=== PATIENT | male | born 1940 | race Caucasian/White ===

== ENCOUNTER → 2016-11-01 | Outpatient (CLI) | payer MEDICARE, OTHER ==
[~2016-11-01] MED LIST: IOHEXOL 350 MG/ML 100ML IJ ONE; READI-CAT 2 (BARIUM SULF)(VANILLA SMOOTHIE) 450ML ONE
[2016-11-01 09:30] VITALS: BP 127/59
[2016-11-01 10:30] VITALS: BP 115/58
== END | disposition home or self-care (01) ==
LOC: Rad HDHVI 09:32
PROVIDERS: ATTEND Internal Medicine Cardiovascular Disease
DX: N28.1 Cyst of kidney, acquired (principal); I10 Essential (primary) hypertension; I71.4 Abdominal aortic aneurysm, without rupture; E11.9 Type 2 diabetes mellitus without complications; D64.9 Anemia, unspecified; I25.10 Atherosclerotic heart disease of native coronary artery without angina pectoris; M47.896 Other spondylosis, lumbar region; K76.89 Other specified diseases of liver
CPT/HCPCS: 74177; G0463; Q9967

== ENCOUNTER → 2017-05-08 | Outpatient (CLI) | payer MEDICARE, OTHER ==
[2017-05-08 12:23] LABS: Basophils # (auto) 0.1 uL; CONDITION Y; Eosinophils # (auto) 0.3 uL; Eosinophils % (auto) 4.5 % (0.0-7.0); Lymphocytes # (auto) 1.3 uL; Lymphocytes % (auto) 22.7 % (10.0-50.0); Mean Corpuscular Hemoglobin 31.7 pg (28.0-32.0); Mean Corpuscular Volume 93.3 fL (80.0-100.0); Mean Platelet Volume 9.6 fL (7.4-10.4); Monocytes # (auto) 0.4 uL; Monocytes % (auto) 6.8 % (0.0-12.0); Neutrophils # (auto) 3.8 uL; Platelet Count (auto) 226 10^3/uL (140-450); Red Cell Distribution Width 13.7 % (11.6-16.0); White Blood Cell 5.8 10^3/uL (4.4-10.8)
[2017-05-08 12:27] LABS: Urine Bilirubin Negative (Negative); Urine Blood Negative /uL (Negative); Urine Color Yellow (Yellow); Urine Ketone Negative (Negative); Urine Nitrite Negative (Negative); Urine Urobilinogen Normal (Negative); Urine pH 5.5 (5.0-8.0)
[2017-05-08 12:36] LABS: Urine Glucose 4+ mg/dL (Normal)
[2017-05-08 12:54] LABS: Albumin 4.4 g/dL (3.4-5.0); BUN/Creatinine Ratio 14.8; Bilirubin, Direct 0.2 mg/dL (0-0.2); Calcium 10.1 mg/dL (8.5-10.1); Potassium 4.5 mmol/L (3.5-5.1); Total Protein 7.8 g/dL (6.4-8.2)
== END | disposition home or self-care (01) ==
LOC: LAB 08:27
PROVIDERS: ATTEND Internal Medicine Cardiovascular Disease
DX: I10 Essential (primary) hypertension (principal); E78.00 Pure hypercholesterolemia, unspecified; K74.1 Hepatic sclerosis; E11.9 Type 2 diabetes mellitus without complications; R97.20 Elevated prostate specific antigen [PSA]; R53.81 Other malaise; E03.9 Hypothyroidism, unspecified; D64.9 Anemia, unspecified; E55.9 Vitamin D deficiency, unspecified; N39.0 Urinary tract infection, site not specified
CPT/HCPCS: 36415; 80048; 80061; 80076; 81003; 82306; 83036; 84153; 84403; 84443; 85025

== ENCOUNTER → 2017-05-17 | Outpatient (CLI) | payer MEDICARE, OTHER ==
[2017-05-17 11:15] VITALS: BP 107/64
[2017-05-17 11:20] VITALS: BP 107/64
== END | disposition home or self-care (01) ==
LOC: CHF HDHVI 10:42
PROVIDERS: ATTEND Internal Medicine Cardiovascular Disease
DX: E11.9 Type 2 diabetes mellitus without complications (principal)
CPT/HCPCS: 96372; G0463

== ENCOUNTER → 2017-06-29 | Outpatient (CLI) | payer MEDICARE, OTHER | END | disposition home or self-care (01) | LOC: LAB 09:31 | PROVIDERS: ATTEND Internal Medicine Cardiovascular Disease | DX: E11.9 Type 2 diabetes mellitus without complications (principal) | CPT/HCPCS: 36415; 83036 ==

== ENCOUNTER → 2017-07-26 | Outpatient (CLI) | payer MEDICARE, OTHER | END | disposition home or self-care (01) | LOC: Rad HDHVI 09:00 | PROVIDERS: ATTEND Internal Medicine Cardiovascular Disease | DX: I10 Essential (primary) hypertension (principal); E11.65 Type 2 diabetes mellitus with hyperglycemia | CPT/HCPCS: 93306; 93880 ==

== ENCOUNTER → 2017-07-28 | Outpatient (CLI) | payer MEDICARE, OTHER ==
[~2017-07-28] VITALS: Ht 182.9 cm; Wt 87.5 kg
== END | disposition home or self-care (01) ==
LOC: Rad HDHVI 09:54
PROVIDERS: ATTEND Internal Medicine Cardiovascular Disease
DX: I10 Essential (primary) hypertension (principal); E11.21 Type 2 diabetes mellitus with diabetic nephropathy; E11.65 Type 2 diabetes mellitus with hyperglycemia; E78.5 Hyperlipidemia, unspecified
CPT/HCPCS: 78452; 93017; 96374; A9500

== ENCOUNTER → 2017-12-14 | Outpatient (CLI) | payer MEDICARE, OTHER | END | disposition home or self-care (01) | LOC: Rad HDHVI 08:02 | PROVIDERS: ATTEND Internal Medicine Cardiovascular Disease | DX: E11.9 Type 2 diabetes mellitus without complications (principal); I10 Essential (primary) hypertension | CPT/HCPCS: 93306 ==

== ENCOUNTER → 2017-12-28 | Outpatient (CLI) | payer MEDICARE, OTHER ==
[2017-12-28 12:06] LABS: Hematocrit 50.3 % (41.0-53.0); Hemoglobin 16.5 g/dL (13.5-17.5); Mean Corpuscular Hemoglobin 28.7 pg (28.0-32.0); Mean Corpuscular Hgb Conc. 32.7 g/dL (32.0-36.0); Mean Corpuscular Volume 87.7 fL (80.0-100.0); Platelet Count (auto) 197 10^3/uL (140-450); Red Blood Cells 5.74 10^6/uL (4.5-5.90); Red Cell Distribution Width 14.4 % (11.8-14.3); White Blood Cell 5.4 10^3/uL (4.4-10.8)
[2017-12-28 12:12] LABS: Urine Blood Negative /uL (Negative)
[2017-12-28 12:25] LABS: Free T4 (Free Thyroxine) 1.57 ng/dL (0.89-1.76); Prostate Specific Antigen 2.27 ng/mL (0.0-4.0)
[2017-12-28 12:29] LABS: Band Neutrophils % (manual) 0; Basophils % (manual) 0 (0.0-2.0); Blast Cells 0; Metamyelocytes % 0; Myelocytes % 0; Promyelocytes % 0; Reactive Lymphocytes 0
[2017-12-28 13:28] LABS: BUN/Creatinine Ratio 19.7; Potassium 3.8 mmol/L (3.5-5.1)
[2017-12-28 13:29] LABS: Albumin 4.4 g/dL (3.4-5.0); Bilirubin, Total 1.2 mg/dL (0.2-1.0); Calcium 9.8 mg/dL (8.5-10.1)
[2017-12-28 15:00] LABS: Eosinophils % (manual) 6 (0-7); Lymphocytes % (manual) 19 (10.0-50.0); Monocytes % (manual) 10 (0-12)
== END | disposition home or self-care (01) ==
LOC: LAB 08:34
PROVIDERS: ATTEND Internal Medicine Cardiovascular Disease
DX: E78.00 Pure hypercholesterolemia, unspecified (principal); D64.9 Anemia, unspecified; I10 Essential (primary) hypertension; E11.9 Type 2 diabetes mellitus without complications; E55.9 Vitamin D deficiency, unspecified; E03.9 Hypothyroidism, unspecified; R53.81 Other malaise; R97.20 Elevated prostate specific antigen [PSA]; D51.9 Vitamin B12 deficiency anemia, unspecified; N39.0 Urinary tract infection, site not specified
CPT/HCPCS: 36415; 80053; 80061; 81003; 82306; 82607; 83036; 84153; 84403; 84439; 84443; 85007; 85027

== ENCOUNTER → 2018-04-16 | Outpatient (CLI) | payer MEDICARE, OTHER ==
[2018-04-16 12:12] LABS: Urine Blood Negative /uL (Negative); Urine Specific Gravity 1.028 (1.001-1.035)
[2018-04-16 12:25] LABS: Potassium 3.8 mmol/L (3.5-5.1)
[2018-04-16 12:50] LABS: BUN/Creatinine Ratio 17.7; Calcium 9.5 mg/dL (8.5-10.1)
== END | disposition home or self-care (01) ==
LOC: LAB 07:56
PROVIDERS: ATTEND Internal Medicine Cardiovascular Disease
DX: E11.9 Type 2 diabetes mellitus without complications (principal); I10 Essential (primary) hypertension; N39.0 Urinary tract infection, site not specified; E03.9 Hypothyroidism, unspecified; E78.5 Hyperlipidemia, unspecified
CPT/HCPCS: 36415; 80048; 81003; 83036

== ENCOUNTER → 2018-06-06 | Outpatient (CLI) | payer MEDICARE, OTHER ==
[2018-06-06 12:34] LABS: Albumin 4.1 g/dL (3.4-5.0); BUN/Creatinine Ratio 15.3; Bilirubin, Total 0.9 mg/dL (0.2-1.0); Potassium 3.9 mmol/L (3.5-5.1); Total Protein 7.4 g/dL (6.4-8.2)
== END | disposition home or self-care (01) ==
LOC: LAB 08:29
PROVIDERS: ATTEND Internal Medicine Cardiovascular Disease
DX: E11.21 Type 2 diabetes mellitus with diabetic nephropathy (principal); I10 Essential (primary) hypertension
CPT/HCPCS: 36415; 80053; 83036

== ENCOUNTER → 2018-07-02 | Outpatient (CLI) | payer MEDICARE, OTHER ==
[~2018-07-02] VITALS: Ht 182.9 cm; Wt 93.0 kg
== END | disposition home or self-care (01) ==
LOC: Rad HDHVI 14:32
PROVIDERS: ATTEND Internal Medicine Cardiovascular Disease
DX: E11.9 Type 2 diabetes mellitus without complications (principal)
CPT/HCPCS: 78452; 93017; 96374; A9500

== ENCOUNTER → 2018-07-24 | Outpatient (CLI) | payer MEDICARE, OTHER | END | disposition home or self-care (01) | LOC: Rad HDHVI 14:23 | PROVIDERS: ATTEND Internal Medicine Cardiovascular Disease | DX: I65.29 Occlusion and stenosis of unspecified carotid artery (principal); I10 Essential (primary) hypertension | CPT/HCPCS: 93880 ==

== ENCOUNTER → 2018-08-08 | Outpatient (CLI) | payer MEDICARE, OTHER | END | disposition home or self-care (01) | LOC: Rad HDHVI 08:56 | PROVIDERS: ATTEND Internal Medicine Cardiovascular Disease | DX: R51 Headache (principal) | CPT/HCPCS: 70450 ==

== ENCOUNTER → 2019-01-07 | Outpatient (CLI) | payer MEDICARE, OTHER ==
[2019-01-07 15:54] LABS: Urine Blood Negative /uL (Negative); Urine Specific Gravity 1.028 (1.001-1.035)
[2019-01-07 16:05] LABS: Albumin 4.2 g/dL (3.4-5.0); Potassium 4.3 mmol/L (3.5-5.1)
[2019-01-07 16:13] LABS: BUN/Creatinine Ratio 14.4; Bilirubin, Direct 0.2 mg/dL (0-0.2); Calcium 10.1 mg/dL (8.5-10.1); Total Protein 7.7 g/dL (6.4-8.2)
[2019-01-07 16:23] LABS: Free T4 (Free Thyroxine) 1.19 ng/dL (0.89-1.76)
[2019-01-07 16:24] LABS: Prostate Specific Antigen 2.5 ng/mL (0.0-4.0)
[2019-01-07 17:15] LABS: Basophils # (auto) 0.1 uL; Basophils % (auto) 1.8 % (0.0-2.0); Eosinophils # (auto) 0.1 uL; Eosinophils % (auto) 2.2 % (0.0-7.0); Lymphocytes # (auto) 1.5 uL; Lymphocytes % (auto) 26.4 % (10.0-50.0); Mean Corpuscular Hemoglobin 28.6 pg (28.0-32.0); Mean Corpuscular Hgb Conc. 32.7 g/dL (32.0-36.0); Mean Corpuscular Volume 87.7 fL (80.0-100.0); Monocytes # (auto) 0.4 uL; Monocytes % (auto) 7.6 % (0.0-12.0); Neutrophils # (auto) 3.4 uL; Nucleated Red Blood Cells % 0.2 %; Platelet Count (auto) 165 10^3/uL (140-450); Red Blood Cells 5.58 10^6/uL (4.5-5.90); Red Cell Distribution Width 16.2 % (11.8-14.3); White Blood Cell 5.5 10^3/uL (4.4-10.8)
== END | disposition home or self-care (01) ==
LOC: Rad HDHVI 11:49
PROVIDERS: ATTEND Internal Medicine Cardiovascular Disease
DX: J43.2 Centrilobular emphysema (principal); I70.0 Atherosclerosis of aorta; I25.10 Atherosclerotic heart disease of native coronary artery without angina pectoris; E03.9 Hypothyroidism, unspecified; E11.9 Type 2 diabetes mellitus without complications; E55.9 Vitamin D deficiency, unspecified; C61 Malignant neoplasm of prostate; E29.1 Testicular hypofunction; N39.0 Urinary tract infection, site not specified; Z87.891 Personal history of nicotine dependence
CPT/HCPCS: 36415; 71250; 80048; 80061; 80076; 81003; 82306; 83036; 84153; 84403; 84439; 84443; 85025; 87086

== ENCOUNTER → 2019-01-11 | Outpatient (CLI) | payer MEDICARE, OTHER | END | disposition home or self-care (01) | LOC: Rad HDHVI 13:58 | PROVIDERS: ATTEND Internal Medicine Cardiovascular Disease | DX: I06.9 Rheumatic aortic valve disease, unspecified (principal); J44.9 Chronic obstructive pulmonary disease, unspecified; I95.9 Hypotension, unspecified; G45.9 Transient cerebral ischemic attack, unspecified | CPT/HCPCS: 93306 ==

== ENCOUNTER → 2019-01-16 | Outpatient (CLI) | payer MEDICARE, OTHER ==
[~2019-01-16] MED LIST changes: +ASPI-231 PO; +B-CO1TAB8 PO; +BENA40TA7 PO; +CARV12.544 PO; +CHOL500021 OR; +GLIP-116 PO; +HYDR25TA4 PO; +INSU1.2I SC; +PAR20T PO; -READI-CAT 2 (BARIUM SULF)(VANILLA SMOOTHIE) 450ML ONE; +ROSU20TA14 PO
[2019-01-16 08:15] VITALS: BP 134/79
--- NOTE | 2019-01-16 09:00 | NUR ---
glucose checked AT 394. PT INITIALLY DECLINED ANY DIABETIC MANAGEMENT FOR 2 WEEKS. "I RAN OUT OF TOUJEO AND FARXIGA AND THEY WERE TOO EXPENSIVE". WHEN ASKED IF HE DISCUSSED DIABETIC MANAGEMENT WITH THE PHYSICIAN AT THE PRE-OP APPOINTMENT, HE DECLINED. "STATING HE DIDNT ASK ABOUT MY SUGAR". DISCUSSED IMPLICATIONS OF POOR DIABETIC MANAGEMENT AND IMPORTANCE OF GLUCOSE CONTROL ESPECIALLY WITH A LEFT HEART CATH TOMORROW AND IMPLICATIONS FOR INFECTION IF GLUCOSE IS NOT MANAGED. PULLED PAPER RECORD AND REVIEWED MEDICATIONS. FOUND THAT PT IS TAKING GLIPIZIDE. HE AGREED. STATED HE DID NOT KNOW WHAT MEDICATION WAS FOR. " I DONT KNOW WHAT ANY OF MY MEDICATIONS ARE FOR". DIABETIC TEACHING AND REVIEW FOR 10 MINUTES AT BEDSIDE. PT DOES HAVE GLUCOSE MONITOR AND STRIPS TO CHECK BLOOD SUGAR. HAS A FREESTYLE MONITOR THAT HE WILL IMPLEMENT ON DAY AFTER PROCEDURE. GIVEN SAMPLE OF TOUJEO WITH INSTRUCTIONS TO RETURN TO PREVIOUS DOSING (PT STATES 20 UNITS TWICE DAILY). AT END OF TEACHING SESSION PT RESPONDING WITH MORE INTEREST AND CONCERN REGARDING GLUCOSE MANAGEMENT. REPEAT BACK INSTRUCTIONS OBTAINED.
[2019-01-16 09:15] VITALS: BP 148/92
--- NOTE | 2019-01-16 09:15 | NUR ---
Pre-Op Discharge Summary: See e-MAR for any medications given for this visit. Pre-op orders received and carried out per MD of EKG, LABS and chest xrays. Patient given a copy of EKG with instructions to go to [facility] out patient for further follow up care.
[2019-01-16 12:13] LABS: Basophils # (auto) 0.1 uL; Basophils % (auto) 1.5 % (0.0-2.0); Eosinophils # (auto) 0.2 uL; Eosinophils % (auto) 2.9 % (0.0-7.0); Hematocrit 49.1 % (41.0-53.0); Hemoglobin 16.3 g/dL (13.5-17.5); Lymphocytes # (auto) 1.7 uL; Lymphocytes % (auto) 32.5 % (10.0-50.0); Mean Corpuscular Hgb Conc. 33.3 g/dL (32.0-36.0); Mean Corpuscular Volume 87.1 fL (80.0-100.0); Monocytes # (auto) 0.7 uL; Monocytes % (auto) 12.4 % (0.0-12.0); Neutrophils # (auto) 2.7 uL; Neutrophils % (auto) 50.7 % (37.0-80.0); Nucleated Red Blood Cells % 0.1 %; Platelet Count (auto) 177 10^3/uL (140-450); Red Blood Cells 5.63 10^6/uL (4.5-5.90); White Blood Cell 5.3 10^3/uL (4.4-10.8)
[2019-01-16 12:20] LABS: INR 0.96 (0.9-1.15); Partial Thromboplastin Time 26.2 sec (23.78-33.04); Prothrombin Time 10.3 sec (9.27-12.13)
[2019-01-16 12:27] LABS: BUN/Creatinine Ratio 17.1; Calcium 9.4 mg/dL (8.5-10.1); Potassium 3.5 mmol/L (3.5-5.1)
== END | disposition home or self-care (01) ==
LOC: Rad HDHVI 07:58
PROVIDERS: ATTEND Internal Medicine Cardiovascular Disease
DX: Z01.812 Encounter for preprocedural laboratory examination (principal); I11.0 Hypertensive heart disease with heart failure; I50.9 Heart failure, unspecified; I25.10 Atherosclerotic heart disease of native coronary artery without angina pectoris; E11.9 Type 2 diabetes mellitus without complications; G45.9 Transient cerebral ischemic attack, unspecified; R79.1 Abnormal coagulation profile; D64.9 Anemia, unspecified
CPT/HCPCS: 36415; 71046; 80048; 82962; 85025; 85610; 85730; 93005; G0463

== ENCOUNTER 2019-01-17 09:31 | Inpatient (IN) | payer MEDICARE, OTHER ==
[~2019-01-17] VITALS: Ht 182.9 cm; Wt 96.6 kg
[~2019-01-17 09:31] MED LIST changes: -IOHEXOL 350 MG/ML 100ML IJ ONE
[2019-01-17] MEDS ORDERED: fentaNYL CITRATE 100 MCG/2 ML VL ONE (13:06)
[2019-01-17] MEDS ORDERED: ANGIOMAX 250 MG VIAL IV ONE (13:06)
[2019-01-17] MEDS ORDERED: SODIUM CHL 0.9% 50 ML ONE (13:07)
[2019-01-17] MEDS ORDERED: MIDAZOLAM HCL 1MG/1ML-2 ML VIAL ONE (13:07)
[2019-01-17] MEDS ORDERED: LIDOCAINE 2%HCL (LOCAL ANESTH.) INJ 20ML MDV ONE (13:42)
[2019-01-17] MEDS ORDERED: IOHEXOL 350 MG/ML 100ML IJ ONE (13:43)
[2019-01-17] MEDS ORDERED: ATROPINE SULFATE 1 MG/1 ML VIAL ONE (14:28)
[2019-01-17] MEDS ORDERED: CLOPIDOGREL 300 MG TAB ONE (14:44)
[2019-01-17] MEDS ORDERED: NITROGLYCERIN 0.4MG/DOSE SPRAY 4.9GM ONE (14:52)
[2019-01-17] MEDS ORDERED: cloNIDine HCL 0.1 MG TAB ONE (14:54)
[2019-01-17] MEDS ORDERED: MORPHINE SULF INJ 2 MG/ML SYRINGE 1ML IV PRN (15:30)
[2019-01-17] MEDS ORDERED: NITROGLYCERIN 0.4 MG SL TAB SL PRN (15:30)
[2019-01-17 17:10] VITALS: BP 116/79
[2019-01-17 17:37] VITALS: BP 116/79
[2019-01-17 22:00] VITALS: BP 108/79
[2019-01-17] MEDS ORDERED: INSULIN GLARGINE 20 UNIT SC SCH (22:00)
[2019-01-17] MEDS: ASPirin-EC 81 mg tab PO SCH (22:05)
[2019-01-17] MEDS: CARVEDILOL 12.5 MG TAB PO SCH (22:07)
[2019-01-17] MEDS: INSULIN LANTUS (GLARGINE) 1 /0.01ml (100units/ml) SC SCH (22:14)
[2019-01-17] MEDS ORDERED: DEXTROSE (50%) 50ML SYRG IV PRN ×2 (22:45)
[2019-01-17] MEDS: ACCU-CHEK COMFORT CURVE STRIP VI SCH (23:00)
[2019-01-17] MEDS ORDERED: InsuLIN REG 1unit/0.01ml Soln (100units/ml) SC SCH (23:00)
[2019-01-18 05:22] VITALS: BP 124/69
[2019-01-18] MEDS ORDERED: InsuLIN REG 1unit/0.01ml Soln (100units/ml) SC SCH ×2 (07:00→22:00)
[2019-01-18] MEDS: InsuLIN REG 1unit/0.01ml Soln (100units/ml) SC SCH ×4 (07:00→17:00)
[2019-01-18] MEDS ORDERED: ACCU-CHEK COMFORT CURVE STRIP VI SCH (07:00)
[2019-01-18] MEDS: ACCU-CHEK COMFORT CURVE STRIP VI SCH ×3 (07:07→19:09)
[2019-01-18 07:09] LABS: Basophils # (auto) 0.1 uL; Basophils % (auto) 1.2 % (0.0-2.0); Eosinophils # (auto) 0.2 uL; Eosinophils % (auto) 2.8 % (0.0-7.0); Hematocrit 47.9 % (41.0-53.0); Hemoglobin 16.4 g/dL (13.5-17.5); Lymphocytes # (auto) 1.5 uL; Lymphocytes % (auto) 25.4 % (10.0-50.0); Mean Corpuscular Hemoglobin 29.5 pg (28.0-32.0); Mean Corpuscular Hgb Conc. 34.3 g/dL (32.0-36.0); Mean Corpuscular Volume 85.8 fL (80.0-100.0); Monocytes # (auto) 0.6 uL; Monocytes % (auto) 10.7 % (0.0-12.0); Neutrophils # (auto) 3.5 uL; Neutrophils % (auto) 59.9 % (37.0-80.0); Nucleated Red Blood Cells % 0.1 %; Platelet Count (auto) 175 10^3/uL (140-450); Red Blood Cells 5.58 10^6/uL (4.5-5.90); Red Cell Distribution Width 15.8 % (11.8-14.3); White Blood Cell 5.8 10^3/uL (4.4-10.8)
[2019-01-18 07:11] LABS: INR 0.94 (0.9-1.15); Prothrombin Time 10.1 sec (9.27-12.13)
[2019-01-18 07:13] LABS: Potassium 3.4 mmol/L (3.5-5.1)
[2019-01-18 07:31] LABS: Albumin 4.2 g/dL (3.4-5.0); BUN/Creatinine Ratio 20.9; Bilirubin, Total 1.2 mg/dL (0.2-1.0); Calcium 9.5 mg/dL (8.5-10.1); Total Protein 7.5 g/dL (6.4-8.2)
[2019-01-18 09:00] VITALS: BP 117/67
[2019-01-18] MEDS: ASPirin-EC 81 mg tab PO SCH (09:53)
[2019-01-18] MEDS: INSULIN LANTUS (GLARGINE) 1 /0.01ml (100units/ml) SC SCH (09:55)
[2019-01-18] MEDS ORDERED: B-COMPLEX W/ C & FOLIC ACID(NEPHROVITE TAB) PO SCH (10:00)
[2019-01-18] MEDS ORDERED: PATIENTS OWN MEDICATION (Glipizide 10 MG) PO SCH (10:00)
[2019-01-18] MEDS ORDERED: PATIENTS OWN MEDICATION (Hydrochlorothiazide 25 MG) PO SCH (10:00)
[2019-01-18] MEDS ORDERED: CHOLECALCIFEROL (VITD3) 1,000 UNIT TAB PO SCH (10:00)
[2019-01-18] MEDS ORDERED: CLOPIDOGREL BISULFATE 75 MG TAB PO SCH (10:00)
[2019-01-18] MEDS ORDERED: PARoxetine 20 MG TAB PO SCH (10:00)
[2019-01-18] MEDS ORDERED: PATIENTS OWN MEDICATION (Rosuvastatin Calcium (Crestor) 1 TAB) PO SCH (10:00)
[2019-01-18] MEDS ORDERED: BIOTIN PO SCH (10:00)
[2019-01-18] MEDS ORDERED: PATIENTS OWN MEDICATION (Benazepril Hcl 40 MG) PO SCH (10:00)
[2019-01-18] MEDS ORDERED: BENAZEPRIL HCL 10 MG TAB PO SCH (10:00)
[2019-01-18] MEDS: CARVEDILOL 12.5 MG TAB PO SCH (10:00)
[2019-01-18] MEDS ORDERED: PATIENTS OWN MEDICATION (Cholecalciferol (Vitamin D) 5,000 UNIT) OR SCH (10:00)
[2019-01-18] MEDS ORDERED: B COMPLEX PO SCH (10:00)
[2019-01-18] MEDS ORDERED: HCTZ 25 MG TAB PO SCH (10:00)
[2019-01-18] MEDS ORDERED: glipiZIDE 5 MG TAB PO SCH (10:00)
[2019-01-18] MEDS ORDERED: FOLIC ACI PO SCH (10:00)
[2019-01-18 17:00] VITALS: BP 124/65
[2019-01-18 18:01] VITALS: BP 124/65
== END 2019-01-18 19:57 | disposition home or self-care (01) | DRG 246 ==
LOC: CATH 09:31 → TELE-EAST 16:37
PROVIDERS: ADMIT Internal Medicine Cardiovascular Disease; ATTEND Internal Medicine Cardiovascular Disease
PROC: B2111ZZ Fluoroscopy of Multiple Coronary Arteries using Low Osmolar Contrast (ICD-10-PCS; principal; 2019-01-17)
PROC: 027034Z Dilation of Coronary Artery, One Artery with Drug-eluting Intraluminal Device, Percutaneous Approach (ICD-10-PCS; 2019-01-17)
PROC: 4A023N8 Measurement of Cardiac Sampling and Pressure, Bilateral, Percutaneous Approach (ICD-10-PCS; 2019-01-17)
PROC: B2161ZZ Fluoroscopy of Right and Left Heart using Low Osmolar Contrast (ICD-10-PCS; 2019-01-17)
PROC: B41F1ZZ Fluoroscopy of Right Lower Extremity Arteries using Low Osmolar Contrast (ICD-10-PCS; 2019-01-17)
DX: I25.10 Atherosclerotic heart disease of native coronary artery without angina pectoris (principal); I50.31 Acute diastolic (congestive) heart failure; I11.0 Hypertensive heart disease with heart failure; N19 Unspecified kidney failure; J44.9 Chronic obstructive pulmonary disease, unspecified; E78.5 Hyperlipidemia, unspecified; I25.2 Old myocardial infarction; Z98.61 Coronary angioplasty status; Z82.49 Family history of ischemic heart disease and other diseases of the circulatory system
CPT/HCPCS: 36415; 71046; 80048; 80053; 82962; 84484; 85025; 85610; 85730; 92928; 93005; 93460; 99152; A6257; C1874; G0378; G0463; J0461; J1815; J2250

== ENCOUNTER → 2019-02-12 | Outpatient (CLI) | payer MEDICARE, OTHER ==
[~2019-02-12] MED LIST changes: +CLOP75TA41 PO
[2019-02-12 09:00] VITALS: BP 154/78
[2019-02-12 09:27] VITALS: BP 153/80
--- NOTE | 2019-02-12 09:27 | NUR ---
PRE-OP FOR [facility] FOR 02/14/19 Discharge Instructions See e-MAR for any mediations given with this visit. Patient education given on disease process. Patient verbalized understanding. Previous labs reviewed. Patient discharged in stable condition with after care instructions and follow up appointment.
[2019-02-12 11:59] LABS: Basophils # (auto) 0.1 uL; Basophils % (auto) 1.5 % (0.0-2.0); Eosinophils # (auto) 0.2 uL; Eosinophils % (auto) 3.9 % (0.0-7.0); Hematocrit 48.3 % (41.0-53.0); Hemoglobin 16.1 g/dL (13.5-17.5); Lymphocytes # (auto) 1.4 uL; Mean Corpuscular Hemoglobin 29.4 pg (28.0-32.0); Mean Corpuscular Hgb Conc. 33.3 g/dL (32.0-36.0); Mean Corpuscular Volume 88.3 fL (80.0-100.0); Monocytes # (auto) 0.5 uL; Monocytes % (auto) 8.5 % (0.0-12.0); Neutrophils # (auto) 3.5 uL; Neutrophils % (auto) 61.1 % (37.0-80.0); Nucleated Red Blood Cells % 0.1 %; Platelet Count (auto) 161 10^3/uL (140-450); Red Blood Cells 5.47 10^6/uL (4.5-5.90); Red Cell Distribution Width 15.3 % (11.8-14.3); White Blood Cell 5.7 10^3/uL (4.4-10.8)
[2019-02-12 12:19] LABS: Calcium 9.5 mg/dL (8.5-10.1); Potassium 3.8 mmol/L (3.5-5.1)
[2019-02-12 12:22] LABS: BUN/Creatinine Ratio 14.3
[2019-02-12 12:29] LABS: INR 2.03 (0.9-1.15); Partial Thromboplastin Time 22.2 sec (23.78-33.04); Prothrombin Time 19.8 sec (9.27-12.13)
== END | disposition home or self-care (01) ==
LOC: Rad HDHVI 08:54
PROVIDERS: ATTEND Internal Medicine Cardiovascular Disease
DX: Z01.812 Encounter for preprocedural laboratory examination (principal); I13.0 Hypertensive heart and chronic kidney disease with heart failure and stage 1 through stage 4 chronic kidney disease, or unspecified chronic kidney disease; I50.9 Heart failure, unspecified; N18.3 Chronic kidney disease, stage 3 (moderate); D64.9 Anemia, unspecified; R79.1 Abnormal coagulation profile
CPT/HCPCS: 36415; 80048; 85025; 85610; 85730; 93005; G0463

== ENCOUNTER 2019-02-14 08:03 | Inpatient (IN) | payer MEDICARE, OTHER | END 2019-02-15 12:25 | disposition home or self-care (01) | LOC: CATH 08:03 → TELE-CENTR 16:06 | PROC: 027034Z Dilation of Coronary Artery, One Artery with Drug-eluting Intraluminal Device, Percutaneous Approach (ICD-10-PCS; principal; ~2019-02-14) | PROC: B2111ZZ Fluoroscopy of Multiple Coronary Arteries using Low Osmolar Contrast (ICD-10-PCS; ~2019-02-14) | PROC: B2141ZZ Fluoroscopy of Right Heart using Low Osmolar Contrast (ICD-10-PCS; ~2019-02-14) | DX: I25.10 Atherosclerotic heart disease of native coronary artery without angina pectoris (principal); I10 Essential (primary) hypertension; E78.5 Hyperlipidemia, unspecified; I25.5 Ischemic cardiomyopathy ==

== ENCOUNTER → 2019-04-29 | Outpatient (CLI) | payer MEDICARE, OTHER ==
[~2019-04-29] VITALS: Ht 182.9 cm; Wt 93.0 kg
[~2019-04-29] MED LIST changes: -B-CO1TAB8 PO; -CHOL500021 OR; -GLIP-116 PO; +GLIP10TA9 PO
== END | disposition home or self-care (01) ==
LOC: Rad HDHVI 07:55
PROVIDERS: ATTEND Internal Medicine Cardiovascular Disease
DX: I08.3 Combined rheumatic disorders of mitral, aortic and tricuspid valves (principal); E78.00 Pure hypercholesterolemia, unspecified; I11.0 Hypertensive heart disease with heart failure; I50.33 Acute on chronic diastolic (congestive) heart failure; I27.20 Pulmonary hypertension, unspecified; J44.9 Chronic obstructive pulmonary disease, unspecified; I20.9 Angina pectoris, unspecified
CPT/HCPCS: 78452; 93017; 93306; 96374; A9500

== ENCOUNTER → 2019-05-13 | Outpatient (CLI) | payer MEDICARE, OTHER ==
[2019-05-13 15:59] LABS: Basophils # (auto) 0.1 uL; Basophils % (auto) 2.1 % (0.0-2.0); Eosinophils # (auto) 0.1 uL; Eosinophils % (auto) 2.9 % (0.0-7.0); Hematocrit 45.1 % (41.0-53.0); Lymphocytes # (auto) 1.3 uL; Lymphocytes % (auto) 27.3 % (10.0-50.0); Mean Corpuscular Hemoglobin 30.6 pg (28.0-32.0); Mean Corpuscular Hgb Conc. 33.3 g/dL (32.0-36.0); Mean Corpuscular Volume 91.7 fL (80.0-100.0); Monocytes # (auto) 0.5 uL; Monocytes % (auto) 10.1 % (0.0-12.0); Neutrophils # (auto) 2.7 uL; Neutrophils % (auto) 57.6 % (37.0-80.0); Platelet Count (auto) 156 10^3/uL (140-450); Red Blood Cells 4.92 10^6/uL (4.5-5.90); Red Cell Distribution Width 14.5 % (11.8-14.3); White Blood Cell 4.7 10^3/uL (4.4-10.8)
[2019-05-13 16:04] LABS: Alanine Aminotransferase 43 U/L (16-61); Albumin 3.9 g/dL (3.4-5.0); Anion Gap 9 (5-15); Aspartate Aminotransferase 21 U/L (15-37); Blood Urea Nitrogen 22 mg/dL (7-18); Calcium 9.2 mg/dL (8.5-10.1); Carbon Dioxide 25 mmol/L (21-32); Chloride 100 mmol/L (98-107); GFR African American 60 mL/min; GFR Non-African American 49 mL/min; Potassium 4.1 mmol/L (3.5-5.1); Sodium 134 mmol/L (136-145)
[2019-05-13 16:10] LABS: Alkaline Phosphatase 90 U/L (45-117); Bilirubin, Direct 0.2 mg/dL (0-0.2); Bilirubin, Total 0.8 mg/dL (0.2-1.0); Cholesterol 166 mg/dL (< 200); HDL Cholesterol 39 mg/dL (40-59); Total Protein 7.2 g/dL (6.4-8.2); Triglycerides 483 mg/dL (< 150)
[2019-05-13 16:15] LABS: Glucose 430 mg/dL (74-106)
== END | disposition home or self-care (01) ==
LOC: LAB 10:46
PROVIDERS: ATTEND Internal Medicine Cardiovascular Disease
DX: E11.319 Type 2 diabetes mellitus with unspecified diabetic retinopathy without macular edema (principal); E29.1 Testicular hypofunction; K90.9 Intestinal malabsorption, unspecified; C61 Malignant neoplasm of prostate; K74.1 Hepatic sclerosis; E03.9 Hypothyroidism, unspecified
CPT/HCPCS: 36415; 80048; 80061; 80076; 82306; 83036; 84153; 84403; 84443; 85025

== ENCOUNTER 2019-08-13 11:48 | Inpatient (IN) | payer MEDICARE, OTHER ==
[~2019-08-13] VITALS: Ht 182.9 cm; Wt 90.7 kg
[~2019-08-13 11:48] MED LIST changes: +EMPA1TAB3 PO; -INSU1.2I SC
[2019-08-13] MEDS ORDERED: LIDOCAINE 2%HCL (LOCAL ANESTH.) INJ 20ML MDV ONE (12:04)
[2019-08-13] MEDS ORDERED: MIDAZOLAM HCL 1MG/1ML-2 ML VIAL ONE (12:04)
[2019-08-13] MEDS ORDERED: fentaNYL CITRATE 100 MCG/2 ML VL ONE (12:04)
[2019-08-13] MEDS ORDERED: IOHEXOL 350 MG/ML 100ML IJ ONE (12:04)
[2019-08-13] MEDS ORDERED: ANGIOMAX 250 MG VIAL IV ONE (12:05)
[2019-08-13] MEDS ORDERED: SODIUM CHL 0.9% 50 ML ONE (12:05)
[2019-08-13] MEDS ORDERED: ONDANSETRON HCL 4 MG/2 ML VIAL IV PRN (13:45)
[2019-08-13] MEDS ORDERED: NITROGLYCERIN 0.4 MG SL TAB SL PRN (13:45)
[2019-08-13] MEDS ORDERED: MORPHINE SULF INJ 2 MG/ML SYRINGE 1ML IV PRN (13:45)
[2019-08-13] MEDS ORDERED: HYDROcodone-ACET 5/325MG TAB PO PRN (13:45)
[2019-08-13] MEDS ORDERED: DEXTROSE (50%) 50ML SYRG IV PRN (13:45)
[2019-08-13 14:41] VITALS: BP 133/58
[2019-08-13 16:46] VITALS: BP 122/66
[2019-08-13] MEDS: ACETAMINOPHEN 500 MG TAB PO PRN (17:29)
--- NOTE | 2019-08-13 17:29 | NUR ---
Tylenol PO given for headache.
[2019-08-13] MEDS: ACCU-CHEK COMFORT CURVE STRIP VI SCH ×2 (17:33→21:16)
[2019-08-13] MEDS: InsuLIN REG 1unit/0.01ml Soln (100units/ml) SC SCH ×2 (17:34→21:19)
[2019-08-13] MEDS: CARVEDILOL 12.5 MG TAB PO SCH (17:58)
[2019-08-13] MEDS: ASPirin-EC 81 mg tab PO SCH (21:16)
[2019-08-14 05:33] VITALS: BP 137/99
[2019-08-14] MEDS: ACCU-CHEK COMFORT CURVE STRIP VI SCH ×2 (06:09→11:40)
[2019-08-14] MEDS: InsuLIN REG 1unit/0.01ml Soln (100units/ml) SC SCH ×2 (06:09→11:41)
[2019-08-14 09:00] VITALS: BP 138/65
[2019-08-14] MEDS: ASPirin-EC 81 mg tab PO SCH (09:37)
[2019-08-14] MEDS: CARVEDILOL 12.5 MG TAB PO SCH (09:52)
[2019-08-14] MEDS ORDERED: PARoxetine 20 MG TAB PO SCH (10:00)
[2019-08-14] MEDS ORDERED: CLOPIDOGREL BISULFATE 75 MG TAB PO SCH (10:00)
[2019-08-14] MEDS ORDERED: EMPAGLIFLOZIN 25 MG PO SCH (10:00)
[2019-08-14] MEDS ORDERED: ATORVASTATIN 20 MG TAB PO SCH (10:00)
[2019-08-14] MEDS ORDERED: BENAZEPRIL HCL 10 MG TAB PO SCH (10:00)
[2019-08-14] MEDS ORDERED: glipiZIDE 5 MG TAB PO SCH (10:00)
[2019-08-14] MEDS ORDERED: HCTZ 25 MG TAB PO SCH (10:00)
[2019-08-14] MEDS: ACETAMINOPHEN 500 MG TAB PO PRN (11:36)
[2019-08-14 13:00] VITALS: BP 127/57
--- NOTE | 2019-08-14 14:00 | NUR ---
Dr. Murguia gave a telephone order to discharge the patient today, on Brilinta 90 mg BID #30 with 6 refills and call in to patient's pharmacy. Addendum: 08/14/19 at 1419 by Nehal Rios RN Brilinta for 30 days
--- NOTE | 2019-08-14 14:03 | NUR ---
Patient said he gets his medications at [facility].
--- NOTE | 2019-08-14 14:11 | NUR ---
Called [facility] [address] ([phone]). Spoke with Pharmacist Christofer that Dr. Murguia prescribed Brilinta 90 mg PO BID for 30 days with 6 refills. 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 Will inform the patient.
[2019-08-14 14:56] VITALS: BP 127/75
--- NOTE | 2019-08-14 15:38 | NUR ---
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
--- NOTE | 2019-08-14 15:41 | NUR ---
Patient called his using the bedside phone to call his to pick him up.
--- NOTE | 2019-08-14 16:00 | NUR ---
Discharge instructions given as ordered. Encourage to follow up with PMD as instructed. All questions and concerns addressed. Patient verbalized understanding. Medication reconciliation form completed and copy given to patient. IV removed with catheter intact, pressure dressing applied. Telemetry unit returned to ICU. Patient taken to [facility] via wheelchair with all personal belongings, accompanied by staff. Patient waiting at the [facility] for his to arrive, patient stated his will arrive at 4:00 pm to pick him up. No distress noted at time of departure.
== END 2019-08-14 16:00 | disposition home or self-care (01) | DRG 247 ==
LOC: CATH 11:48 → TELE-WESTW 14:25
PROVIDERS: ADMIT Internal Medicine Cardiovascular Disease; ATTEND Internal Medicine Cardiovascular Disease
PROC: 4A023N7 Measurement of Cardiac Sampling and Pressure, Left Heart, Percutaneous Approach (ICD-10-PCS; principal; 2019-08-13)
PROC: 027136Z Dilation of Coronary Artery, Two Arteries with Three Drug-eluting Intraluminal Devices, Percutaneous Approach (ICD-10-PCS; 2019-08-13)
PROC: B2111ZZ Fluoroscopy of Multiple Coronary Arteries using Low Osmolar Contrast (ICD-10-PCS; 2019-08-13)
PROC: 4A033BC Measurement of Arterial Pressure, Coronary, Percutaneous Approach (ICD-10-PCS; 2019-08-13)
DX: I25.110 Atherosclerotic heart disease of native coronary artery with unstable angina pectoris (principal); E78.5 Hyperlipidemia, unspecified; I10 Essential (primary) hypertension; I11.0 Hypertensive heart disease with heart failure; E11.9 Type 2 diabetes mellitus without complications; I50.9 Heart failure, unspecified; I25.2 Old myocardial infarction
CPT/HCPCS: 36415; 71046; 80048; 82962; 85025; 85610; 85730; 92928; 93005; 93458; 93571; G0378; G0463; J1815; J2250

== ENCOUNTER → 2019-09-30 | Outpatient (CLI) | payer MEDICARE, OTHER | END | disposition home or self-care (01) | LOC: Rad HDHVI 10:48 | PROVIDERS: ATTEND Internal Medicine Cardiovascular Disease | DX: I08.1 Rheumatic disorders of both mitral and tricuspid valves (principal); I20.0 Unstable angina; I50.33 Acute on chronic diastolic (congestive) heart failure | CPT/HCPCS: 93306 ==

== ENCOUNTER → 2019-10-02 | Outpatient (CLI) | payer MEDICARE, OTHER ==
[~2019-10-02] VITALS: Ht 182.9 cm; Wt 88.5 kg
== END | disposition home or self-care (01) ==
LOC: Rad HDHVI 09:32
PROVIDERS: ATTEND Internal Medicine Cardiovascular Disease
DX: I20.0 Unstable angina (principal); I10 Essential (primary) hypertension; E11.65 Type 2 diabetes mellitus with hyperglycemia; E78.00 Pure hypercholesterolemia, unspecified; E78.5 Hyperlipidemia, unspecified; I25.2 Old myocardial infarction; R07.9 Chest pain, unspecified; Z23 Encounter for immunization; Z95.820 Peripheral vascular angioplasty status with implants and grafts
CPT/HCPCS: 78452; 93017; 96374; A9500

== ENCOUNTER → 2019-10-25 | Outpatient (CLI) | payer MEDICARE, OTHER ==
[~2019-10-25] MED LIST changes: +READI-CAT 2 (BARIUM SULF)(VANILLA SMOOTHIE) 450ML ONE
== END | disposition home or self-care (01) ==
LOC: Rad HDHVI 11:42
PROVIDERS: ATTEND Internal Medicine Cardiovascular Disease
DX: I70.0 Atherosclerosis of aorta (principal); I71.4 Abdominal aortic aneurysm, without rupture; K40.20 Bilateral inguinal hernia, without obstruction or gangrene, not specified as recurrent; R19.7 Diarrhea, unspecified
CPT/HCPCS: 74176

== ENCOUNTER → 2020-02-28 | Outpatient (CLI) | payer MEDICARE, OTHER ==
[~2020-02-28] MED LIST changes: -READI-CAT 2 (BARIUM SULF)(VANILLA SMOOTHIE) 450ML ONE
[2020-02-28 15:56] LABS: Potassium 4.2 mmol/L (3.5-5.1)
[2020-02-28 15:57] LABS: BUN/Creatinine Ratio 14.2; Calcium 9.6 mg/dL (8.5-10.1)
== END | disposition home or self-care (01) ==
LOC: LAB 11:39
PROVIDERS: ATTEND Internal Medicine Cardiovascular Disease
DX: I10 Essential (primary) hypertension (principal)
CPT/HCPCS: 36415; 80048

== ENCOUNTER → 2020-03-02 | Outpatient (CLI) | payer MEDICARE, OTHER | END | disposition home or self-care (01) | LOC: Rad HDHVI 14:08 | PROVIDERS: ATTEND Internal Medicine Cardiovascular Disease | DX: I11.0 Hypertensive heart disease with heart failure (principal); I50.23 Acute on chronic systolic (congestive) heart failure; I20.0 Unstable angina | CPT/HCPCS: 93306 ==

== ENCOUNTER → 2020-03-06 | Outpatient (CLI) | payer MEDICARE, OTHER ==
[~2020-03-06] VITALS: Ht 182.9 cm; Wt 86.2 kg
[~2020-03-06] MED LIST changes: +ADENOSINE 72 MG in GIVE UN-DILUTED 0 ML IV ONE; +ADENOSINE 90 MG/30 ML INJ IV ONE
== END | disposition home or self-care (01) ==
LOC: Rad HDHVI 08:05
PROVIDERS: ATTEND Internal Medicine Cardiovascular Disease
DX: R07.9 Chest pain, unspecified (principal); I25.2 Old myocardial infarction; I25.10 Atherosclerotic heart disease of native coronary artery without angina pectoris; I10 Essential (primary) hypertension; E78.00 Pure hypercholesterolemia, unspecified; E11.9 Type 2 diabetes mellitus without complications; Z82.49 Family history of ischemic heart disease and other diseases of the circulatory system
CPT/HCPCS: 78452; 93005; 96374; 96375; A9500; J0153

== ENCOUNTER → 2020-03-20 | Outpatient (CLI) | payer MEDICARE, OTHER ==
[~2020-03-20] MED LIST changes: -ADENOSINE 72 MG in GIVE UN-DILUTED 0 ML IV ONE; -ADENOSINE 90 MG/30 ML INJ IV ONE
[2020-03-20 12:15] LABS: Basophils # (auto) 0.1 10 ^3/uL (0-0.2); Basophils % (auto) 2.1 % (0.0-2.0); Eosinophils # (auto) 0.1 10 ^3/uL (0-0.8); Eosinophils % (auto) 2.7 % (0.0-7.0); Hematocrit 49.6 % (41.0-53.0); Hemoglobin 16.6 g/dL (13.5-17.5); Lymphocytes # (auto) 1.1 10 ^3/uL (0.4-5.4); Mean Corpuscular Hemoglobin 30.7 pg (28.0-32.0); Mean Corpuscular Hgb Conc. 33.5 g/dL (32.0-36.0); Mean Corpuscular Volume 91.6 fL (80.0-100.0); Monocytes # (auto) 0.4 10 ^3/uL (0-1.3); Monocytes % (auto) 9.1 % (0.0-12.0); Neutrophils # (auto) 3.1 10 ^3/uL (1.6-8.6); Neutrophils % (auto) 64.1 % (37.0-80.0); Nucleated Red Blood Cells % 0.4 %; Platelet Count (auto) 227 10^3/uL (140-450); Red Blood Cells 5.42 10^6/uL (4.5-5.90); Red Cell Distribution Width 13.9 % (11.8-14.3); White Blood Cell 4.9 10^3/uL (4.4-10.8)
== END | disposition home or self-care (01) ==
LOC: LAB 09:16
PROVIDERS: ATTEND Internal Medicine Cardiovascular Disease
DX: D64.9 Anemia, unspecified (principal); Z79.899 Other long term (current) drug therapy
CPT/HCPCS: 36415; 83036; 85025

== ENCOUNTER → 2020-05-06 | Outpatient (CLI) | payer MEDICARE, OTHER | END | disposition home or self-care (01) | LOC: LAB 10:26 | PROVIDERS: ATTEND Internal Medicine Cardiovascular Disease | DX: E11.9 Type 2 diabetes mellitus without complications (principal) | CPT/HCPCS: 36415; 83036 ==

== ENCOUNTER 2020-06-24 16:32 | Inpatient (IN) | payer MEDICARE, OTHER ==
[~2020-06-24] VITALS: Ht 182.9 cm; Wt 97.0 kg
[2020-06-24] MEDS ORDERED: DEXTROSE (50%) 50ML SYRG IV PRN (17:15)
[2020-06-24] MEDS ORDERED: MORPHINE SULF INJ 2 MG/ML SYRINGE 1ML IV PRN (17:15)
[2020-06-24] MEDS ORDERED: NITROGLYCERIN 0.4 MG SL TAB SL PRN (17:15)
[2020-06-24 17:27] VITALS: BP 135/70
[2020-06-24 22:00] VITALS: BP 149/75
[2020-06-24] MEDS: InsuLIN REG 1unit/0.01ml Soln (100units/ml) SC SCH (22:34)
[2020-06-24] MEDS: ACCU-CHEK COMFORT CURVE STRIP VI SCH (22:34)
[2020-06-25] VITALS (7 sets, daily range): BP systolic 136–190; BP diastolic 69–101
[2020-06-25] MEDS: glipiZIDE 5 MG TAB PO SCH (06:13)
[2020-06-25] MEDS: InsuLIN REG 1unit/0.01ml Soln (100units/ml) SC SCH ×4 (06:13→22:00)
[2020-06-25] MEDS: ACCU-CHEK COMFORT CURVE STRIP VI SCH ×4 (06:13→22:11)
[2020-06-25 07:08] LABS: Basophils # (auto) 0.1 10 ^3/uL (0-0.2); Basophils % (auto) 2.5 % (0.0-2.0); Eosinophils # (auto) 0.2 10 ^3/uL (0-0.8); Eosinophils % (auto) 4.5 % (0.0-7.0); Hematocrit 44.5 % (41.0-53.0); Hemoglobin 14.8 g/dL (13.5-17.5); Lymphocytes # (auto) 1.1 10 ^3/uL (0.4-5.4); Lymphocytes % (auto) 22.4 % (10.0-50.0); Mean Corpuscular Hemoglobin 29.5 pg (28.0-32.0); Mean Corpuscular Hgb Conc. 33.3 g/dL (32.0-36.0); Mean Corpuscular Volume 88.6 fL (80.0-100.0); Monocytes # (auto) 0.6 10 ^3/uL (0-1.3); Monocytes % (auto) 11.5 % (0.0-12.0); Neutrophils % (auto) 59.1 % (37.0-80.0); Platelet Count (auto) 200 10^3/uL (140-450); Red Blood Cells 5.02 10^6/uL (4.5-5.90); Red Cell Distribution Width 13.9 % (11.8-14.3)
[2020-06-25 07:17] LABS: Albumin 3.6 g/dL (3.4-5.0); BUN/Creatinine Ratio 15.5; Calcium 8.9 mg/dL (8.5-10.1)
[2020-06-25 07:20] LABS: Total Protein 6.7 g/dL (6.4-8.2)
[2020-06-25 07:23] LABS: INR 0.99 (0.9-1.15); Partial Thromboplastin Time 24.9 sec (23.0-31.2)
[2020-06-25] MEDS: BENAZEPRIL HCL 10 MG TAB PO SCH (10:28)
[2020-06-25] MEDS: CLOPIDOGREL BISULFATE 75 MG TAB PO SCH (10:28)
[2020-06-25] MEDS ORDERED: IOHEXOL 350 MG/ML 100ML IJ ONE ×3 (14:32→14:57)
[2020-06-25] MEDS ORDERED: LIDOCAINE 2%HCL (LOCAL ANESTH.) INJ 20ML MDV ONE (14:32)
[2020-06-25] MEDS ORDERED: fentaNYL CITRATE 100 MCG/2 ML VL ONE (14:33)
[2020-06-25] MEDS ORDERED: ANGIOMAX 250 MG VIAL IV ONE (14:33)
[2020-06-25] MEDS ORDERED: SODIUM CHL 0.9% 50 ML ONE (14:34)
[2020-06-25] MEDS ORDERED: MIDAZOLAM HCL 1MG/1ML-2 ML VIAL ONE (14:34)
[2020-06-25] MEDS ORDERED: NITROGLYCERIN 0.4MG/DOSE SPRAY 4.9GM ONE (14:51)
[2020-06-25] MEDS ORDERED: ASPirin 81 mg TAB ONE (15:30)
[2020-06-26] VITALS (7 sets, daily range): BP systolic 124–175; BP diastolic 70–87
[2020-06-26] MEDS: InsuLIN REG 1unit/0.01ml Soln (100units/ml) SC SCH ×2 (05:31→11:17)
[2020-06-26] MEDS: glipiZIDE 5 MG TAB PO SCH (05:43)
[2020-06-26] MEDS: ACCU-CHEK COMFORT CURVE STRIP VI SCH ×2 (07:06→11:16)
[2020-06-26] MEDS: BENAZEPRIL HCL 10 MG TAB PO SCH (10:00)
[2020-06-26] MEDS ORDERED: HYDROcodone-ACET 10/325MG TAB PO PRN (10:00)
[2020-06-26] MEDS: CLOPIDOGREL BISULFATE 75 MG TAB PO SCH (10:00)
== END 2020-06-26 16:45 | disposition home or self-care (01) | DRG 247 ==
LOC: TELE-WESTW 16:32
PROVIDERS: ADMIT Hospitalist; ATTEND Internal Medicine Cardiovascular Disease
PROC: 4A023N7 Measurement of Cardiac Sampling and Pressure, Left Heart, Percutaneous Approach (ICD-10-PCS; principal; 2020-06-25)
PROC: 027034Z Dilation of Coronary Artery, One Artery with Drug-eluting Intraluminal Device, Percutaneous Approach (ICD-10-PCS; 2020-06-25)
PROC: B2111ZZ Fluoroscopy of Multiple Coronary Arteries using Low Osmolar Contrast (ICD-10-PCS; 2020-06-25)
PROC: B2151ZZ Fluoroscopy of Left Heart using Low Osmolar Contrast (ICD-10-PCS; 2020-06-25)
DX: I21.4 Non-ST elevation (NSTEMI) myocardial infarction (principal); I25.110 Atherosclerotic heart disease of native coronary artery with unstable angina pectoris; E11.40 Type 2 diabetes mellitus with diabetic neuropathy, unspecified; E11.21 Type 2 diabetes mellitus with diabetic nephropathy; I10 Essential (primary) hypertension; E78.5 Hyperlipidemia, unspecified; J44.9 Chronic obstructive pulmonary disease, unspecified; Z82.49 Family history of ischemic heart disease and other diseases of the circulatory system
CPT/HCPCS: 36415; 71045; 80053; 82962; 85025; 85610; 85730; 86850; 86900; 86901; 92928; 93458; 99152; 99153; C1874; C1887; G0378; J1815; J2250

== ENCOUNTER → 2020-11-05 | Outpatient (CLI) | payer MEDICARE, OTHER ==
[~2020-11-05] MED LIST changes: -ROSU20TA14 PO
== END | disposition home or self-care (01) ==
LOC: LAB 13:23
PROVIDERS: ATTEND Internal Medicine Cardiovascular Disease
DX: R94.4 Abnormal results of kidney function studies (principal)
CPT/HCPCS: 36415; 82565; 84520

== ENCOUNTER → 2020-11-06 | Outpatient (CLI) | payer MEDICARE, OTHER ==
[~2020-11-06] MED LIST changes: +IOHEXOL 350 MG/ML 100ML IJ ONE; +READI-CAT 2 (BARIUM SULF)(VANILLA SMOOTHIE) 450ML ONE
[2020-11-06 09:30] VITALS: BP 125/76
[2020-11-06 10:18] VITALS: BP 141/84
== END | disposition home or self-care (01) ==
LOC: Rad HDHVI 09:26
PROVIDERS: ATTEND Internal Medicine Cardiovascular Disease
DX: K57.30 Diverticulosis of large intestine without perforation or abscess without bleeding (principal); K44.9 Diaphragmatic hernia without obstruction or gangrene; K40.90 Unilateral inguinal hernia, without obstruction or gangrene, not specified as recurrent; I71.4 Abdominal aortic aneurysm, without rupture; N28.1 Cyst of kidney, acquired; M47.819 Spondylosis without myelopathy or radiculopathy, site unspecified; R10.9 Unspecified abdominal pain
CPT/HCPCS: 74177; G0463; Q9967

== ENCOUNTER → 2020-12-11 | Outpatient (CLI) | payer MEDICARE, OTHER ==
[~2020-12-11] MED LIST changes: -BENA40TA7 PO; +BENA40TA8 PO; -CLOP75TA41 PO; +CLOP75TA70 PO; -IOHEXOL 350 MG/ML 100ML IJ ONE; -READI-CAT 2 (BARIUM SULF)(VANILLA SMOOTHIE) 450ML ONE
[2020-12-11 15:31] LABS: Basophils # (auto) 0.1 10 ^3/uL (0-0.2); Eosinophils # (auto) 0.2 10 ^3/uL (0-0.8); Hemoglobin 13.7 g/dL (13.5-17.5); Lymphocytes # (auto) 1.5 10 ^3/uL (0.4-5.4); Nucleated Red Blood Cells % 0.1 %
[2020-12-11 15:33] LABS: Eosinophils % (auto) 2.7 % (0.0-7.0); Hematocrit 41.4 % (41.0-53.0); Lymphocytes % (auto) 25.9 % (10.0-50.0); Mean Corpuscular Hemoglobin 26.6 pg (28.0-32.0); Mean Corpuscular Hgb Conc. 33.1 g/dL (32.0-36.0); Mean Corpuscular Volume 80.4 fL (80.0-100.0); Monocytes # (auto) 0.6 10 ^3/uL (0-1.3); Monocytes % (auto) 10.8 % (0.0-12.0); Neutrophils # (auto) 3.4 10 ^3/uL (1.6-8.6); Neutrophils % (auto) 58.6 % (37.0-80.0); Platelet Count (auto) 242 10^3/uL (140-450); Red Blood Cells 5.15 10^6/uL (4.5-5.90); Red Cell Distribution Width 15.8 % (11.8-14.3); White Blood Cell 5.8 10^3/uL (4.4-10.8)
[2020-12-11 15:41] LABS: Urine Blood TRACE /uL (Negative); Urine Specific Gravity 1.035 (1.001-1.035)
[2020-12-11 15:48] LABS: Chloride 106 mmol/L (98-107); Potassium 3.8 mmol/L (3.5-5.1); Sodium 139 mmol/L (136-145)
[2020-12-11 16:03] LABS: Alanine Aminotransferase 33 U/L (16-61); Albumin 3.8 g/dL (3.4-5.0); Alkaline Phosphatase 76 U/L (45-117); Anion Gap 6 (5-15); Aspartate Aminotransferase 19 U/L (15-37); BUN/Creatinine Ratio 15.3; Bilirubin, Direct 0.1 mg/dL (0-0.2); Bilirubin, Total 0.7 mg/dL (0.2-1.0); Blood Urea Nitrogen 17 mg/dL (7-18); Calcium 9.4 mg/dL (8.5-10.1); Carbon Dioxide 27 mmol/L (21-32); Cholesterol 235 mg/dL (< 200); GFR African American 82 mL/min; GFR Non-African American 68 mL/min; Glucose 174 mg/dL (74-106); HDL Cholesterol 37 mg/dL (40-59); Total Protein 7.2 g/dL (6.4-8.2); Triglycerides 471 mg/dL (< 150)
== END | disposition home or self-care (01) ==
LOC: LAB 11:27
PROVIDERS: ATTEND Internal Medicine Cardiovascular Disease
DX: C61 Malignant neoplasm of prostate (principal); D51.3 Other dietary vitamin B12 deficiency anemia; I10 Essential (primary) hypertension; E11.9 Type 2 diabetes mellitus without complications; E55.9 Vitamin D deficiency, unspecified; D64.9 Anemia, unspecified; R00.2 Palpitations; R53.1 Weakness; R30.0 Dysuria
CPT/HCPCS: 36415; 80048; 80061; 80076; 81003; 82306; 83036; 84153; 84154; 84403; 84443; 85025

== ENCOUNTER → 2021-05-24 | Outpatient (CLI) | payer MEDICARE, OTHER | END | disposition home or self-care (01) | LOC: LAB 09:25 | PROVIDERS: ATTEND Internal Medicine Cardiovascular Disease | DX: E11.9 Type 2 diabetes mellitus without complications (principal) | CPT/HCPCS: 36415; 83036 ==

== ENCOUNTER 2021-06-04 19:53 | Inpatient (IN) | payer MEDICARE, OTHER ==
[~2021-06-04] VITALS: Ht 182.9 cm; Wt 90.1 kg
[2021-06-04 22:00] VITALS: BP 177/115
[2021-06-04] MEDS ORDERED: DOBUTamine 1000MCG/ML 250 ML IV SCH (23:00)
[2021-06-04] MEDS ORDERED: DEXTROSE (50%) 50ML SYRG IV PRN (23:00)
[2021-06-04] MEDS ORDERED: CARV6.2551 PO (23:27)
[2021-06-04] MEDS ORDERED: TAMS0.4C36 PO (23:27)
[2021-06-04] MEDS ORDERED: MAGN400T40 PO (23:27)
[2021-06-04] MEDS ORDERED: DOXA1TAB42 PO (23:27)
[2021-06-05] VITALS (12 sets, daily range): BP systolic 130–177; BP diastolic 55–115
[2021-06-05] MEDS ORDERED: NITROGLYCERIN 0.4 MG SL TAB SL PRN (00:15)
[2021-06-05] MEDS ORDERED: MORPHINE SULFATE INJECTION 2 MG/ML SYRG IV PRN (00:15)
[2021-06-05] MEDS ORDERED: DOBUTamine 1000MCG/ML 250 ML IV SCH ×2 (01:15→01:30)
[2021-06-05] MEDS ORDERED: FUROSEMIDE INJECTION 10 ML ONE (01:20)
[2021-06-05] MEDS: DOBUTamine 1000MCG/ML 250 ML IV SCH ×3 (01:40→17:50)
[2021-06-05] MEDS: FUROSEMIDE INJECTION 100 MG in SODIUM CHL 0.9% 100 ML IV SCH ×4 (01:40→20:39)
[2021-06-05] MEDS: POTASSIUM CHL 20 Meq TABLET PO SCH ×3 (06:19→22:16)
[2021-06-05] MEDS: InsuLIN REG 1unit/0.01ml Soln (100units/ml) SC SCH ×4 (06:20→22:00)
[2021-06-05] MEDS: ACCU-CHEK COMFORT CURVE STRIP VI SCH ×4 (06:20→22:16)
[2021-06-05 07:00] LABS: Eosinophils # (auto) 0.1 10 ^3/uL (0-0.8); Lymphocytes # (auto) 0.9 10 ^3/uL (0.4-5.4); Monocytes # (auto) 0.9 10 ^3/uL (0-1.3)
[2021-06-05 07:02] LABS: Basophils # (auto) 0.2 10 ^3/uL (0-0.2); Hematocrit 20.6 % (41.0-53.0); Lymphocytes % (auto) 11.6 % (10.0-50.0); Mean Corpuscular Hemoglobin 21.4 pg (28.0-32.0); Mean Corpuscular Hgb Conc. 30.9 g/dL (32.0-36.0); Mean Corpuscular Volume 69.1 fL (80.0-100.0); Monocytes % (auto) 11.5 % (0.0-12.0); Neutrophils # (auto) 5.8 10 ^3/uL (1.6-8.6); Neutrophils % (auto) 73.9 % (37.0-80.0); Nucleated Red Blood Cells % 0.3 %; Red Blood Cells 2.98 10^6/uL (4.5-5.90); White Blood Cell 7.9 10^3/uL (4.4-10.8)
[2021-06-05 07:35] LABS: Hemoglobin 6.4 g/dL (13.5-17.5)
[2021-06-05] MEDS ORDERED: CLOPIDOGREL BISULFATE 75 MG TAB PO SCH (10:00)
[2021-06-05] MEDS: MAGNESIUM OXIDE 400 MG TAB PO SCH (10:36)
[2021-06-05] MEDS: CARVEDILOL 3.125 MG TAB PO SCH ×2 (10:36→22:15)
[2021-06-05] MEDS: TAMSULOSIN HYDROCHLORIDE 0.4 MG CAP PO SCH ×2 (10:36→22:16)
[2021-06-05] MEDS: PARoxetine 20 MG TAB PO SCH (10:37)
[2021-06-05] MEDS: ASPirin-EC 81 mg tab PO SCH ×2 (10:37→22:00)
[2021-06-05] MEDS: BENAZEPRIL HCL 10 MG TAB PO SCH (10:37)
[2021-06-05] MEDS: glipiZIDE 5 MG TAB PO SCH (10:51)
[2021-06-05] MEDS: DOXAZOSIN MESYL 2 MG TAB PO SCH (22:15)
[2021-06-06] VITALS (8 sets, daily range): BP systolic 138–183; BP diastolic 63–87
[2021-06-06] MEDS: DOBUTamine 1000MCG/ML 250 ML IV SCH ×3 (01:20→18:00)
[2021-06-06] MEDS: FUROSEMIDE INJECTION 100 MG in SODIUM CHL 0.9% 100 ML IV SCH ×2 (05:26→12:58)
[2021-06-06 06:01] LABS: Hemoglobin 8.9 g/dL (13.5-17.5)
[2021-06-06 06:04] LABS: Hematocrit 26.5 % (41.0-53.0)
[2021-06-06] MEDS: ACCU-CHEK COMFORT CURVE STRIP VI SCH ×4 (06:09→22:01)
[2021-06-06] MEDS: POTASSIUM CHL 20 Meq TABLET PO SCH ×3 (06:09→22:00)
[2021-06-06] MEDS: InsuLIN REG 1unit/0.01ml Soln (100units/ml) SC SCH ×4 (06:09→22:00)
[2021-06-06] MEDS: PARoxetine 20 MG TAB PO SCH (09:07)
[2021-06-06] MEDS: MAGNESIUM OXIDE 400 MG TAB PO SCH (09:07)
[2021-06-06] MEDS: BENAZEPRIL HCL 10 MG TAB PO SCH (09:07)
[2021-06-06] MEDS: ASPirin-EC 81 mg tab PO SCH ×2 (09:08→22:01)
[2021-06-06] MEDS: CARVEDILOL 3.125 MG TAB PO SCH ×2 (09:08→22:00)
[2021-06-06] MEDS: TAMSULOSIN HYDROCHLORIDE 0.4 MG CAP PO SCH ×2 (09:08→22:00)
[2021-06-06] MEDS: glipiZIDE 5 MG TAB PO SCH (09:13)
[2021-06-06 09:18] LABS: Basophils # (auto) 0.1 10 ^3/uL (0-0.2); Eosinophils # (auto) 0.2 10 ^3/uL (0-0.8); Lymphocytes # (auto) 0.6 10 ^3/uL (0.4-5.4); Monocytes # (auto) 0.9 10 ^3/uL (0-1.3)
[2021-06-06 09:20] LABS: Basophils % (auto) 1.7 % (0.0-2.0); Eosinophils % (auto) 2.3 % (0.0-7.0); Hematocrit 26.8 % (41.0-53.0); Hemoglobin 8.8 g/dL (13.5-17.5); Lymphocytes % (auto) 8.1 % (10.0-50.0); Mean Corpuscular Hemoglobin 23.6 pg (28.0-32.0); Mean Corpuscular Hgb Conc. 32.7 g/dL (32.0-36.0); Mean Corpuscular Volume 72.1 fL (80.0-100.0); Monocytes % (auto) 11.1 % (0.0-12.0); Neutrophils # (auto) 5.9 10 ^3/uL (1.6-8.6); Neutrophils % (auto) 76.8 % (37.0-80.0); Nucleated Red Blood Cells % 0.1 %; Red Blood Cells 3.72 10^6/uL (4.5-5.90); White Blood Cell 7.7 10^3/uL (4.4-10.8)
[2021-06-06 09:21] LABS: Red Cell Distribution Width 23.7 % (11.8-14.3)
[2021-06-06 09:39] LABS: BUN/Creatinine Ratio 14.9; Calcium 8.7 mg/dL (8.5-10.1); Potassium 4.3 mmol/L (3.5-5.1)
[2021-06-06] MEDS: HYDROcodone-ACET 10/325MG TAB PO PRN ×2 (11:36→23:50)
[2021-06-06] MEDS ORDERED: SODIUM FERR GLUC 62.5MG/5ML 125 MG in SODIUM CHL 0.9% 100 ML IV ONE (12:00)
[2021-06-06] MEDS ORDERED: EPOETIN ALFA-EPBX 10,000 UNIT/1ML VIAL SC ONE (12:15)
[2021-06-06] MEDS: cloNIDine HCL 0.1 MG TAB PO PRN (12:57)
[2021-06-06] MEDS: DOXAZOSIN MESYL 2 MG TAB PO SCH (22:00)
[2021-06-07 00:07] LABS: Urine Bacteria FEW /hpf (None Seen); Urine Blood 3+ /uL (Negative); Urine Specific Gravity 1.007 (1.001-1.035); Urine WBC 15 /hpf (0 - 3)
[2021-06-07] MEDS: DOBUTamine 1000MCG/ML 250 ML IV SCH ×4 (01:50→23:19)
[2021-06-07 05:00] VITALS: BP 120/70
[2021-06-07] MEDS: POTASSIUM CHL 20 Meq TABLET PO SCH ×3 (05:47→21:22)
[2021-06-07] MEDS: InsuLIN REG 1unit/0.01ml Soln (100units/ml) SC SCH ×4 (06:16→21:22)
[2021-06-07] MEDS: ACCU-CHEK COMFORT CURVE STRIP VI SCH ×4 (06:16→21:22)
[2021-06-07 06:35] LABS: Basophils # (auto) 0.1 10 ^3/uL (0-0.2); Hemoglobin 8.8 g/dL (13.5-17.5); Lymphocytes # (auto) 0.8 10 ^3/uL (0.4-5.4)
[2021-06-07 06:37] LABS: Basophils % (auto) 1.6 % (0.0-2.0); Eosinophils # (auto) 0.3 10 ^3/uL (0-0.8); Eosinophils % (auto) 4.7 % (0.0-7.0); Hematocrit 27.1 % (41.0-53.0); Lymphocytes % (auto) 11.9 % (10.0-50.0); Mean Corpuscular Hemoglobin 23.2 pg (28.0-32.0); Mean Corpuscular Hgb Conc. 32.5 g/dL (32.0-36.0); Mean Corpuscular Volume 71.2 fL (80.0-100.0); Monocytes % (auto) 13.8 % (0.0-12.0); Neutrophils # (auto) 4.7 10 ^3/uL (1.6-8.6); Nucleated Red Blood Cells % 0.3 %; White Blood Cell 6.9 10^3/uL (4.4-10.8)
[2021-06-07 06:40] LABS: INR 1.1 (0.9-1.15); Partial Thromboplastin Time 25.2 sec (23.6-33.0)
[2021-06-07 06:55] LABS: Albumin 3.1 g/dL (3.4-5.0); BUN/Creatinine Ratio 13.1; Bilirubin, Total 0.8 mg/dL (0.2-1.0); Calcium 8.6 mg/dL (8.5-10.1); Total Protein 6.3 g/dL (6.4-8.2)
[2021-06-07 07:02] LABS: Red Cell Distribution Width 23.5 % (11.8-14.3)
[2021-06-07] MEDS: FUROSEMIDE INJECTION 100 MG in SODIUM CHL 0.9% 100 ML IV SCH (08:00)
[2021-06-07 09:00] VITALS: BP 135/61
[2021-06-07] MEDS: MAGNESIUM OXIDE 400 MG TAB PO SCH (10:04)
[2021-06-07] MEDS: ASPirin-EC 81 mg tab PO SCH ×2 (10:05→21:21)
[2021-06-07] MEDS: PARoxetine 20 MG TAB PO SCH (10:05)
[2021-06-07] MEDS: TAMSULOSIN HYDROCHLORIDE 0.4 MG CAP PO SCH ×2 (10:05→21:22)
[2021-06-07] MEDS: CARVEDILOL 3.125 MG TAB PO SCH ×2 (10:07→21:21)
[2021-06-07] MEDS: glipiZIDE 5 MG TAB PO SCH (10:07)
[2021-06-07] MEDS: HYDROcodone-ACET 10/325MG TAB PO PRN (10:18)
[2021-06-07 13:00] VITALS: BP 119/69
[2021-06-07 17:00] VITALS: BP 145/78
[2021-06-07] MEDS ORDERED: EPOETIN ALFA-EPBX 10,000 UNIT/1ML VIAL SC ONE (18:00)
[2021-06-07] MEDS: DOXAZOSIN MESYL 2 MG TAB PO SCH (21:21)
[2021-06-07 22:00] VITALS: BP 140/70
[2021-06-08] MEDS: DOBUTamine 1000MCG/ML 250 ML IV SCH ×2 (00:35→09:51)
[2021-06-08] MEDS: FUROSEMIDE INJECTION 100 MG in SODIUM CHL 0.9% 100 ML IV SCH (04:38)
[2021-06-08] MEDS: HYDROcodone-ACET 10/325MG TAB PO PRN ×3 (04:39→23:51)
[2021-06-08 05:00] VITALS: BP 156/71
[2021-06-08] MEDS: POTASSIUM CHL 20 Meq TABLET PO SCH (05:03)
[2021-06-08 06:02] LABS: Basophils # (auto) 0.1 10 ^3/uL (0-0.2); Eosinophils # (auto) 0.4 10 ^3/uL (0-0.8); Hemoglobin 8.6 g/dL (13.5-17.5); Monocytes # (auto) 1.1 10 ^3/uL (0-1.3); Neutrophils # (auto) 5.3 10 ^3/uL (1.6-8.6)
[2021-06-08 06:05] LABS: Basophils % (auto) 1.2 % (0.0-2.0); Eosinophils % (auto) 4.7 % (0.0-7.0); Hematocrit 26.5 % (41.0-53.0); Lymphocytes # (auto) 0.9 10 ^3/uL (0.4-5.4); Lymphocytes % (auto) 11.4 % (10.0-50.0); Mean Corpuscular Hemoglobin 23.1 pg (28.0-32.0); Mean Corpuscular Hgb Conc. 32.4 g/dL (32.0-36.0); Mean Corpuscular Volume 71.4 fL (80.0-100.0); Monocytes % (auto) 14.3 % (0.0-12.0); Neutrophils % (auto) 68.4 % (37.0-80.0); Nucleated Red Blood Cells % 0.2 %; Red Blood Cells 3.71 10^6/uL (4.5-5.90); White Blood Cell 7.8 10^3/uL (4.4-10.8)
[2021-06-08 06:18] LABS: BUN/Creatinine Ratio 13.6; Calcium 8.3 mg/dL (8.5-10.1); Potassium 4.3 mmol/L (3.5-5.1)
[2021-06-08 06:33] LABS: Red Cell Distribution Width 24.3 % (11.8-14.3)
[2021-06-08] MEDS: InsuLIN REG 1unit/0.01ml Soln (100units/ml) SC SCH ×4 (06:48→21:06)
[2021-06-08] MEDS: ACCU-CHEK COMFORT CURVE STRIP VI SCH ×4 (06:48→21:06)
[2021-06-08 09:00] VITALS: BP 137/74
[2021-06-08] MEDS: TAMSULOSIN HYDROCHLORIDE 0.4 MG CAP PO SCH ×2 (09:47→21:05)
[2021-06-08] MEDS: ASPirin-EC 81 mg tab PO SCH ×2 (09:48→21:05)
[2021-06-08] MEDS: PARoxetine 20 MG TAB PO SCH (09:48)
[2021-06-08] MEDS: MAGNESIUM OXIDE 400 MG TAB PO SCH (09:48)
[2021-06-08] MEDS: CARVEDILOL 3.125 MG TAB PO SCH ×2 (09:48→21:06)
[2021-06-08] MEDS: glipiZIDE 5 MG TAB PO SCH (09:55)
[2021-06-08] MEDS ORDERED: ALBUMIN 25% 100 ML IV ONE (11:15)
[2021-06-08] MEDS ORDERED: IRON SUCROSE COMPLEX 200 MG in SODIUM CHL 0.9% 100 ML IV SCH (12:00)
[2021-06-08 13:00] VITALS: BP 138/57
[2021-06-08] MEDS: SODIUM FERR GLUC 62.5MG/5ML 125 MG in SODIUM CHL 0.9% 100 ML IV SCH (13:49)
[2021-06-08 17:00] VITALS: BP_SYST 150
[2021-06-08] MEDS: DOXAZOSIN MESYL 2 MG TAB PO SCH (21:05)
[2021-06-08 21:33] VITALS: BP 150/81
[2021-06-09] MEDS: DOBUTamine 1000MCG/ML 250 ML IV SCH ×3 (02:34→14:42)
[2021-06-09 05:24] VITALS: BP 144/72
[2021-06-09 05:28] LABS: Basophils # (auto) 0.1 10 ^3/uL (0-0.2); Eosinophils # (auto) 0.1 10 ^3/uL (0-0.8); Lymphocytes # (auto) 0.8 10 ^3/uL (0.4-5.4); White Blood Cell 7.2 10^3/uL (4.4-10.8)
[2021-06-09 05:30] LABS: Basophils % (auto) 1.2 % (0.0-2.0); Eosinophils % (auto) 1.7 % (0.0-7.0); Hematocrit 25.6 % (41.0-53.0); Hemoglobin 8.3 g/dL (13.5-17.5); Mean Corpuscular Hemoglobin 23.2 pg (28.0-32.0); Mean Corpuscular Hgb Conc. 32.4 g/dL (32.0-36.0); Mean Corpuscular Volume 71.5 fL (80.0-100.0); Monocytes # (auto) 1.1 10 ^3/uL (0-1.3); Monocytes % (auto) 15.5 % (0.0-12.0); Neutrophils # (auto) 5.1 10 ^3/uL (1.6-8.6); Neutrophils % (auto) 70.6 % (37.0-80.0); Nucleated Red Blood Cells % 0.1 %; Red Blood Cells 3.58 10^6/uL (4.5-5.90)
[2021-06-09] MEDS: InsuLIN REG 1unit/0.01ml Soln (100units/ml) SC SCH ×4 (05:41→20:44)
[2021-06-09] MEDS: ACCU-CHEK COMFORT CURVE STRIP VI SCH ×4 (05:41→20:50)
[2021-06-09 05:45] LABS: Calcium 8.3 mg/dL (8.5-10.1); Potassium 4.6 mmol/L (3.5-5.1)
[2021-06-09 05:48] LABS: BUN/Creatinine Ratio 12.5
[2021-06-09 05:50] LABS: Red Cell Distribution Width 24.3 % (11.8-14.3)
[2021-06-09 09:00] VITALS: BP 145/82
[2021-06-09] MEDS: glipiZIDE 5 MG TAB PO SCH (10:00)
[2021-06-09] MEDS: MAGNESIUM OXIDE 400 MG TAB PO SCH (11:10)
[2021-06-09] MEDS: CARVEDILOL 3.125 MG TAB PO SCH ×2 (11:10→21:21)
[2021-06-09] MEDS: PARoxetine 20 MG TAB PO SCH (11:10)
[2021-06-09] MEDS: ASPirin-EC 81 mg tab PO SCH ×2 (11:10→21:20)
[2021-06-09] MEDS: TAMSULOSIN HYDROCHLORIDE 0.4 MG CAP PO SCH ×2 (11:10→21:20)
[2021-06-09] MEDS ORDERED: ONDANSETRON HCL 4 MG/2 ML VIAL ONE (12:13)
[2021-06-09] MEDS ORDERED: ONDANSETRON HCL 4 MG/2 ML VIAL IV PRN (12:15)
[2021-06-09] MEDS: HYDROcodone-ACET 10/325MG TAB PO PRN (12:29)
[2021-06-09] MEDS: SODIUM FERR GLUC 62.5MG/5ML 125 MG in SODIUM CHL 0.9% 100 ML IV SCH (12:30)
[2021-06-09 13:00] VITALS: BP 161/84
[2021-06-09 15:00] VITALS: BP 134/69
[2021-06-09 17:16] VITALS: BP 138/67
[2021-06-09] MEDS: DOXAZOSIN MESYL 2 MG TAB PO SCH (21:21)
[2021-06-09 22:00] VITALS: BP 136/72
[2021-06-10 05:00] VITALS: BP 143/69
[2021-06-10] MEDS: ACCU-CHEK COMFORT CURVE STRIP VI SCH ×4 (05:49→22:00)
[2021-06-10] MEDS: InsuLIN REG 1unit/0.01ml Soln (100units/ml) SC SCH ×4 (05:49→23:11)
[2021-06-10 05:56] LABS: Calcium 8.7 mg/dL (8.5-10.1); Potassium 4.6 mmol/L (3.5-5.1)
[2021-06-10] MEDS: HYDROcodone-ACET 10/325MG TAB PO PRN ×2 (07:53→18:00)
[2021-06-10 09:00] VITALS: BP 149/73
[2021-06-10] MEDS: TAMSULOSIN HYDROCHLORIDE 0.4 MG CAP PO SCH ×2 (09:14→23:09)
[2021-06-10] MEDS: MAGNESIUM OXIDE 400 MG TAB PO SCH (09:14)
[2021-06-10] MEDS: ASPirin-EC 81 mg tab PO SCH ×2 (09:14→23:07)
[2021-06-10] MEDS: PARoxetine 20 MG TAB PO SCH (09:14)
[2021-06-10] MEDS: CARVEDILOL 3.125 MG TAB PO SCH ×2 (09:15→23:07)
[2021-06-10] MEDS: glipiZIDE 5 MG TAB PO SCH (10:00)
[2021-06-10] MEDS: SODIUM FERR GLUC 62.5MG/5ML 125 MG in SODIUM CHL 0.9% 100 ML IV SCH (12:26)
[2021-06-10 12:52] VITALS: BP 139/69
[2021-06-10] MEDS ORDERED: LIDOCAINE 2%HCL (LOCAL ANESTH.) INJ 20ML MDV ONE (14:45)
[2021-06-10] MEDS ORDERED: fentaNYL CITRATE 100 MCG/2 ML VL ONE (14:50)
[2021-06-10] MEDS ORDERED: MIDAZOLAM HCL 2MG/2ML 2ml VIAL (1mg/ml) ONE (14:50)
[2021-06-10 22:00] VITALS: BP 127/64
[2021-06-10] MEDS: DOXAZOSIN MESYL 2 MG TAB PO SCH (23:08)
[2021-06-11] MEDS: HYDROcodone-ACET 10/325MG TAB PO PRN ×2 (01:24→16:00)
[2021-06-11 05:00] VITALS: BP 141/66
[2021-06-11] MEDS: ACCU-CHEK COMFORT CURVE STRIP VI SCH ×4 (06:22→22:00)
[2021-06-11] MEDS: InsuLIN REG 1unit/0.01ml Soln (100units/ml) SC SCH ×4 (06:23→23:13)
[2021-06-11 06:32] LABS: Potassium 4.3 mmol/L (3.5-5.1)
[2021-06-11 06:41] LABS: Calcium 8.7 mg/dL (8.5-10.1)
[2021-06-11 09:00] VITALS: BP 150/67
[2021-06-11] MEDS: TAMSULOSIN HYDROCHLORIDE 0.4 MG CAP PO SCH ×2 (10:24→22:04)
[2021-06-11] MEDS: ASPirin-EC 81 mg tab PO SCH ×2 (10:24→22:05)
[2021-06-11] MEDS: PARoxetine 20 MG TAB PO SCH (10:24)
[2021-06-11] MEDS: MAGNESIUM OXIDE 400 MG TAB PO SCH (10:24)
[2021-06-11] MEDS: CARVEDILOL 3.125 MG TAB PO SCH ×2 (10:24→22:05)
[2021-06-11] MEDS: glipiZIDE 5 MG TAB PO SCH (10:25)
[2021-06-11 13:00] VITALS: BP 123/66
[2021-06-11] MEDS: SODIUM FERR GLUC 62.5MG/5ML 125 MG in SODIUM CHL 0.9% 100 ML IV SCH (14:48)
[2021-06-11] MEDS ORDERED: ALBUMIN 25% 100 ML IV ONE (15:45)
[2021-06-11 17:00] VITALS: BP 146/64
[2021-06-11 17:08] LABS: Basophils # (auto) 0.1 10 ^3/uL (0-0.2); Eosinophils # (auto) 0.2 10 ^3/uL (0-0.8); Mean Corpuscular Hemoglobin 23.3 pg (28.0-32.0); Mean Corpuscular Volume 74.6 fL (80.0-100.0); Monocytes # (auto) 0.8 10 ^3/uL (0-1.3); Nucleated Red Blood Cells % 0.1 %
[2021-06-11 17:10] LABS: Basophils % (auto) 1.3 % (0.0-2.0); Eosinophils % (auto) 2.2 % (0.0-7.0); Hematocrit 26.1 % (41.0-53.0); Hemoglobin 8.2 g/dL (13.5-17.5); Lymphocytes # (auto) 0.9 10 ^3/uL (0.4-5.4); Mean Corpuscular Hgb Conc. 31.3 g/dL (32.0-36.0); Neutrophils % (auto) 72.5 % (37.0-80.0); White Blood Cell 6.9 10^3/uL (4.4-10.8)
[2021-06-11] MEDS: MAGNESIUM CITRATE SOLUTION 300 ML BTL PO ONE ×2 (20:30→22:04)
[2021-06-11 22:00] VITALS: BP 138/59
[2021-06-11] MEDS: DOXAZOSIN MESYL 2 MG TAB PO SCH (22:04)
[2021-06-12] MEDS: HYDROcodone-ACET 10/325MG TAB PO PRN ×2 (00:58→17:17)
[2021-06-12 05:00] VITALS: BP 130/60
[2021-06-12 06:06] LABS: Basophils # (auto) 0.1 10 ^3/uL (0-0.2); Eosinophils # (auto) 0.2 10 ^3/uL (0-0.8); Nucleated Red Blood Cells % 0.1 %
[2021-06-12 06:11] LABS: Basophils % (auto) 1.4 % (0.0-2.0); Eosinophils % (auto) 3.2 % (0.0-7.0); Hematocrit 27.3 % (41.0-53.0); Hemoglobin 8.7 g/dL (13.5-17.5); Mean Corpuscular Hemoglobin 23.7 pg (28.0-32.0); Mean Corpuscular Hgb Conc. 31.7 g/dL (32.0-36.0); Mean Corpuscular Volume 74.7 fL (80.0-100.0); Monocytes # (auto) 0.9 10 ^3/uL (0-1.3); Monocytes % (auto) 11.8 % (0.0-12.0); Neutrophils # (auto) 5.2 10 ^3/uL (1.6-8.6); Neutrophils % (auto) 70.6 % (37.0-80.0); Red Blood Cells 3.66 10^6/uL (4.5-5.90); White Blood Cell 7.4 10^3/uL (4.4-10.8)
[2021-06-12 06:21] LABS: Calcium 8.6 mg/dL (8.5-10.1); Potassium 3.6 mmol/L (3.5-5.1)
[2021-06-12 06:24] LABS: BUN/Creatinine Ratio 16.7
[2021-06-12 06:26] LABS: Red Cell Distribution Width 25.3 % (11.8-14.3)
[2021-06-12] MEDS: InsuLIN REG 1unit/0.01ml Soln (100units/ml) SC SCH ×4 (07:00→22:51)
[2021-06-12] MEDS: ACCU-CHEK COMFORT CURVE STRIP VI SCH ×4 (07:00→22:00)
[2021-06-12 09:00] VITALS: BP 143/78
[2021-06-12] MEDS: PARoxetine 20 MG TAB PO SCH (09:26)
[2021-06-12] MEDS: ASPirin-EC 81 mg tab PO SCH ×2 (09:26→23:08)
[2021-06-12] MEDS: TAMSULOSIN HYDROCHLORIDE 0.4 MG CAP PO SCH ×2 (09:26→23:08)
[2021-06-12] MEDS: glipiZIDE 5 MG TAB PO SCH (09:26)
[2021-06-12] MEDS: CARVEDILOL 3.125 MG TAB PO SCH ×2 (09:26→23:08)
[2021-06-12] MEDS: MAGNESIUM OXIDE 400 MG TAB PO SCH (09:26)
[2021-06-12] MEDS: SODIUM FERR GLUC 62.5MG/5ML 125 MG in SODIUM CHL 0.9% 100 ML IV SCH (12:00)
[2021-06-12 12:56] VITALS: BP 138/66
[2021-06-12 16:55] VITALS: BP 155/79
[2021-06-12 21:26] VITALS: BP 126/98
[2021-06-12] MEDS: DOXAZOSIN MESYL 2 MG TAB PO SCH (23:07)
[2021-06-13] MEDS: HYDROcodone-ACET 10/325MG TAB PO PRN ×2 (00:55→11:28)
[2021-06-13 05:00] VITALS: BP 144/75
[2021-06-13 06:18] LABS: Potassium 3.5 mmol/L (3.5-5.1)
[2021-06-13 06:24] LABS: BUN/Creatinine Ratio 16.7; Calcium 8.8 mg/dL (8.5-10.1)
[2021-06-13] MEDS: ACCU-CHEK COMFORT CURVE STRIP VI SCH ×4 (06:49→21:53)
[2021-06-13] MEDS: InsuLIN REG 1unit/0.01ml Soln (100units/ml) SC SCH ×4 (06:49→22:11)
[2021-06-13 08:00] VITALS: BP 126/98
[2021-06-13 09:00] VITALS: BP 110/59
[2021-06-13] MEDS: glipiZIDE 5 MG TAB PO SCH (10:00)
[2021-06-13] MEDS: ASPirin-EC 81 mg tab PO SCH ×2 (10:00→21:52)
[2021-06-13] MEDS: TAMSULOSIN HYDROCHLORIDE 0.4 MG CAP PO SCH ×2 (10:08→21:52)
[2021-06-13] MEDS: CARVEDILOL 3.125 MG TAB PO SCH ×2 (10:08→21:52)
[2021-06-13] MEDS: PARoxetine 20 MG TAB PO SCH (10:09)
[2021-06-13] MEDS: MAGNESIUM OXIDE 400 MG TAB PO SCH (10:09)
[2021-06-13] MEDS: SODIUM FERR GLUC 62.5MG/5ML 125 MG in SODIUM CHL 0.9% 100 ML IV SCH (11:28)
[2021-06-13 13:00] VITALS: BP 160/75
[2021-06-13 17:00] VITALS: BP 142/65
[2021-06-13] MEDS: DOXAZOSIN MESYL 2 MG TAB PO SCH (21:52)
[2021-06-13 22:00] VITALS: BP 130/77
[2021-06-14 05:00] VITALS: BP 146/76
[2021-06-14 06:18] LABS: Calcium 8.5 mg/dL (8.5-10.1); Potassium 3.7 mmol/L (3.5-5.1)
[2021-06-14] MEDS: InsuLIN REG 1unit/0.01ml Soln (100units/ml) SC SCH ×4 (06:25→21:57)
[2021-06-14 06:27] LABS: BUN/Creatinine Ratio 15.2
[2021-06-14] MEDS: ACCU-CHEK COMFORT CURVE STRIP VI SCH ×4 (06:28→21:57)
[2021-06-14 09:00] VITALS: BP 160/72
[2021-06-14] MEDS: TAMSULOSIN HYDROCHLORIDE 0.4 MG CAP PO SCH ×2 (11:45→21:53)
[2021-06-14] MEDS: MAGNESIUM OXIDE 400 MG TAB PO SCH (11:45)
[2021-06-14] MEDS: PARoxetine 20 MG TAB PO SCH (11:46)
[2021-06-14] MEDS: CARVEDILOL 3.125 MG TAB PO SCH ×2 (11:46→21:53)
[2021-06-14] MEDS: glipiZIDE 5 MG TAB PO SCH (11:49)
[2021-06-14] MEDS: SODIUM FERR GLUC 62.5MG/5ML 125 MG in SODIUM CHL 0.9% 100 ML IV SCH (12:13)
[2021-06-14 13:00] VITALS: BP 157/55
[2021-06-14 17:00] VITALS: BP 142/68
[2021-06-14] MEDS: DOXAZOSIN MESYL 2 MG TAB PO SCH (21:53)
[2021-06-14 22:00] VITALS: BP 146/74
[2021-06-15 05:00] VITALS: BP 141/75
[2021-06-15] MEDS: InsuLIN REG 1unit/0.01ml Soln (100units/ml) SC SCH ×4 (06:39→21:56)
[2021-06-15] MEDS: ACCU-CHEK COMFORT CURVE STRIP VI SCH ×4 (06:40→21:55)
[2021-06-15] MEDS: HYDROcodone-ACET 10/325MG TAB PO PRN (08:38)
[2021-06-15 09:00] VITALS: BP 155/107
[2021-06-15] MEDS ORDERED: FUROSEMIDE 40 MG/4 ML VIAL IV ONE (10:15)
[2021-06-15 10:55] LABS: BUN/Creatinine Ratio 14.8; Calcium 8.5 mg/dL (8.5-10.1); Potassium 4.4 mmol/L (3.5-5.1)
[2021-06-15] MEDS: glipiZIDE 5 MG TAB PO SCH (11:05)
[2021-06-15] MEDS: MAGNESIUM OXIDE 400 MG TAB PO SCH (11:08)
[2021-06-15] MEDS: PARoxetine 20 MG TAB PO SCH (11:08)
[2021-06-15] MEDS: CARVEDILOL 3.125 MG TAB PO SCH ×2 (11:08→21:54)
[2021-06-15] MEDS: TAMSULOSIN HYDROCHLORIDE 0.4 MG CAP PO SCH ×2 (11:08→21:55)
[2021-06-15] MEDS: SODIUM FERR GLUC 62.5MG/5ML 125 MG in SODIUM CHL 0.9% 100 ML IV SCH (12:00)
[2021-06-15 13:00] VITALS: BP 152/59
[2021-06-15 17:00] VITALS: BP 160/79
[2021-06-15] MEDS: DOXAZOSIN MESYL 2 MG TAB PO SCH (21:54)
[2021-06-15 22:00] VITALS: BP 140/80
[2021-06-16 05:00] VITALS: BP 155/86
[2021-06-16] MEDS: ACCU-CHEK COMFORT CURVE STRIP VI SCH ×4 (06:26→21:52)
[2021-06-16] MEDS: InsuLIN REG 1unit/0.01ml Soln (100units/ml) SC SCH ×4 (06:26→21:57)
[2021-06-16 06:58] LABS: Calcium 8.4 mg/dL (8.5-10.1); Potassium 3.5 mmol/L (3.5-5.1)
[2021-06-16 07:00] LABS: BUN/Creatinine Ratio 16.2
[2021-06-16 09:00] VITALS: BP 148/85
[2021-06-16] MEDS: TAMSULOSIN HYDROCHLORIDE 0.4 MG CAP PO SCH ×2 (09:20→21:52)
[2021-06-16] MEDS: glipiZIDE 5 MG TAB PO SCH (09:20)
[2021-06-16] MEDS: CARVEDILOL 3.125 MG TAB PO SCH ×2 (09:20→21:52)
[2021-06-16] MEDS: PARoxetine 20 MG TAB PO SCH (09:21)
[2021-06-16] MEDS: MAGNESIUM OXIDE 400 MG TAB PO SCH (09:21)
[2021-06-16] MEDS: SODIUM FERR GLUC 62.5MG/5ML 125 MG in SODIUM CHL 0.9% 100 ML IV SCH (12:45)
[2021-06-16 13:00] VITALS: BP 141/77
[2021-06-16 13:24] LABS: Creatinine, Urine 63 mg/dL (30.0-125.0); Protein, Urine 230.7 mg/dL (0.0-11.9); Sodium Urine 69 mmol/L (40-220)
[2021-06-16 16:36] VITALS: BP 145/80
[2021-06-16] MEDS: DOXAZOSIN MESYL 2 MG TAB PO SCH (21:52)
[2021-06-16 22:20] VITALS: BP 158/78
[2021-06-17 05:00] VITALS: BP 145/70
[2021-06-17] MEDS: HYDROcodone-ACET 10/325MG TAB PO PRN (05:06)
[2021-06-17 06:35] LABS: INR 1.1 (0.9-1.15); Partial Thromboplastin Time 28.9 sec (23.6-33.0)
[2021-06-17 06:51] LABS: BUN/Creatinine Ratio 23.7; Calcium 8.9 mg/dL (8.5-10.1); Potassium 3.5 mmol/L (3.5-5.1)
[2021-06-17] MEDS: InsuLIN REG 1unit/0.01ml Soln (100units/ml) SC SCH ×4 (06:59→22:22)
[2021-06-17] MEDS: ACCU-CHEK COMFORT CURVE STRIP VI SCH ×4 (07:00→22:21)
[2021-06-17 08:15] VITALS: BP 145/70
[2021-06-17 09:00] VITALS: BP 133/71
[2021-06-17] MEDS ORDERED: METOCLOPRAMIDE HCL 5MG/ml INJ 2ml VIAL IV PRN (10:15)
[2021-06-17] MEDS ORDERED: MORPHINE SULFATE 4 MG/ML SYR/VIAL IV PRN (10:15)
[2021-06-17] MEDS ORDERED: ACCU-CHEK COMFORT CURVE STRIP VI ONE (10:15)
[2021-06-17] MEDS ORDERED: HYDROmorphone HCL 2 MG/ML VL IV PRN (10:15)
[2021-06-17] MEDS ORDERED: CIPROFLOXACIN 400MG/200ML 200 ML IV ONE (10:17)
[2021-06-17] MEDS: IOHEXOL 300 MG/ML 100ML BOTTLE IJ ONE ×2 (10:20→11:18)
[2021-06-17] MEDS ORDERED: BUPIVACAINE 0.5% P/F INJ 10 ML VIAL ONE (10:21)
[2021-06-17] MEDS ORDERED: PROPOFOL 10 MG/ML 20 ML IV ONE (10:23)
[2021-06-17] MEDS ORDERED: fentaNYL CITRATE 100 MCG/2 ML VL ONE (10:23)
[2021-06-17] MEDS ORDERED: ONDANSETRON HCL 4 MG/2 ML VIAL ONE (10:23)
[2021-06-17] MEDS ORDERED: SODIUM CHLORIDE LOCK 10 ML ONE (10:23)
[2021-06-17] MEDS ORDERED: MIDAZOLAM HCL 2MG/2ML 2ml VIAL (1mg/ml) ONE (10:23)
[2021-06-17] MEDS: CARVEDILOL 3.125 MG TAB PO SCH ×2 (13:13→22:21)
[2021-06-17] MEDS: TAMSULOSIN HYDROCHLORIDE 0.4 MG CAP PO SCH ×2 (13:13→22:21)
[2021-06-17] MEDS: glipiZIDE 5 MG TAB PO SCH (13:13)
[2021-06-17] MEDS: PARoxetine 20 MG TAB PO SCH (13:14)
[2021-06-17] MEDS: MAGNESIUM OXIDE 400 MG TAB PO SCH (13:14)
[2021-06-17] MEDS: SODIUM FERR GLUC 62.5MG/5ML 125 MG in SODIUM CHL 0.9% 100 ML IV SCH (13:15)
[2021-06-17] MEDS ORDERED: HYDROmorphone HCL 2 MG/ML VL IV ONE (14:00)
[2021-06-17] MEDS: HYDROcodone-ACET 5/325MG TAB PO PRN (16:28)
[2021-06-17 17:27] VITALS: BP 141/74
[2021-06-17] MEDS: HYDROmorphone HCL 2 MG/ML VL IV PRN (18:34)
[2021-06-17 22:00] VITALS: BP 114/70
[2021-06-17] MEDS: DOXAZOSIN MESYL 2 MG TAB PO SCH (22:20)
[2021-06-18 05:00] VITALS: BP 152/85
[2021-06-18] MEDS: HYDROmorphone HCL 2 MG/ML VL IV PRN (05:10)
[2021-06-18 06:03] LABS: Basophils # (auto) 0.1 10 ^3/uL (0-0.2); Basophils % (auto) 0.6 % (0.0-2.0); Eosinophils # (auto) 0 10 ^3/uL (0-0.8); Eosinophils % (auto) 0.5 % (0.0-7.0); Hemoglobin 10.1 g/dL (13.5-17.5); Lymphocytes # (auto) 0.3 10 ^3/uL (0.4-5.4)
[2021-06-18 06:06] LABS: Hematocrit 31.9 % (41.0-53.0); Mean Corpuscular Hemoglobin 24.6 pg (28.0-32.0); Mean Corpuscular Hgb Conc. 31.6 g/dL (32.0-36.0); Mean Corpuscular Volume 77.9 fL (80.0-100.0); Monocytes # (auto) 0.7 10 ^3/uL (0-1.3); Monocytes % (auto) 7.1 % (0.0-12.0); Neutrophils # (auto) 8.2 10 ^3/uL (1.6-8.6); Neutrophils % (auto) 88.8 % (37.0-80.0); White Blood Cell 9.3 10^3/uL (4.4-10.8)
[2021-06-18 06:15] LABS: Red Cell Distribution Width 28.7 % (11.8-14.3)
[2021-06-18 06:23] LABS: Potassium 4.4 mmol/L (3.5-5.1)
[2021-06-18 06:28] LABS: BUN/Creatinine Ratio 16.7; Calcium 8.6 mg/dL (8.5-10.1)
[2021-06-18] MEDS: ACCU-CHEK COMFORT CURVE STRIP VI SCH ×4 (06:52→21:59)
[2021-06-18] MEDS: InsuLIN REG 1unit/0.01ml Soln (100units/ml) SC SCH ×4 (06:53→22:02)
[2021-06-18 08:15] VITALS: BP 108/61
[2021-06-18] MEDS: HYDROcodone-ACET 5/325MG TAB PO PRN ×2 (09:17→17:06)
[2021-06-18] MEDS: TAMSULOSIN HYDROCHLORIDE 0.4 MG CAP PO SCH ×2 (09:47→21:58)
[2021-06-18] MEDS: CARVEDILOL 3.125 MG TAB PO SCH ×2 (09:47→21:59)
[2021-06-18] MEDS: PARoxetine 20 MG TAB PO SCH (09:48)
[2021-06-18] MEDS: MAGNESIUM OXIDE 400 MG TAB PO SCH (09:48)
[2021-06-18] MEDS: glipiZIDE 5 MG TAB PO SCH (09:48)
[2021-06-18] MEDS: SODIUM FERR GLUC 62.5MG/5ML 125 MG in SODIUM CHL 0.9% 100 ML IV SCH (11:52)
[2021-06-18] MEDS: DOXAZOSIN MESYL 2 MG TAB PO SCH (21:58)
[2021-06-18 22:00] VITALS: BP 125/75
[2021-06-19 05:00] VITALS: BP 129/67
[2021-06-19 06:25] LABS: BUN/Creatinine Ratio 25.8; Calcium 8.6 mg/dL (8.5-10.1)
[2021-06-19] MEDS: ACCU-CHEK COMFORT CURVE STRIP VI SCH ×4 (06:28→21:38)
[2021-06-19] MEDS: InsuLIN REG 1unit/0.01ml Soln (100units/ml) SC SCH ×4 (06:28→21:39)
[2021-06-19 09:00] VITALS: BP 105/59
[2021-06-19] MEDS: HYDROcodone-ACET 5/325MG TAB PO PRN ×2 (09:16→21:38)
[2021-06-19] MEDS: TAMSULOSIN HYDROCHLORIDE 0.4 MG CAP PO SCH ×2 (09:16→21:37)
[2021-06-19] MEDS: glipiZIDE 5 MG TAB PO SCH (09:16)
[2021-06-19] MEDS: MAGNESIUM OXIDE 400 MG TAB PO SCH (09:16)
[2021-06-19] MEDS: PARoxetine 20 MG TAB PO SCH (09:17)
[2021-06-19] MEDS: CARVEDILOL 3.125 MG TAB PO SCH ×2 (09:17→21:37)
[2021-06-19 13:00] VITALS: BP 123/57
[2021-06-19] MEDS: SODIUM FERR GLUC 62.5MG/5ML 125 MG in SODIUM CHL 0.9% 100 ML IV SCH (13:11)
[2021-06-19 17:00] VITALS: BP 135/89
[2021-06-19] MEDS: DOXAZOSIN MESYL 2 MG TAB PO SCH (21:37)
[2021-06-19 22:00] VITALS: BP 160/71
[2021-06-20 05:00] VITALS: BP 135/67
[2021-06-20] MEDS: ACCU-CHEK COMFORT CURVE STRIP VI SCH ×4 (06:09→21:37)
[2021-06-20] MEDS: InsuLIN REG 1unit/0.01ml Soln (100units/ml) SC SCH ×4 (06:11→21:39)
[2021-06-20 06:31] LABS: Potassium 4.2 mmol/L (3.5-5.1)
[2021-06-20 06:41] LABS: BUN/Creatinine Ratio 30.5; Calcium 8.9 mg/dL (8.5-10.1)
[2021-06-20 08:30] VITALS: BP 151/72
[2021-06-20] MEDS: PARoxetine 20 MG TAB PO SCH (10:43)
[2021-06-20] MEDS: MAGNESIUM OXIDE 400 MG TAB PO SCH (10:44)
[2021-06-20] MEDS: TAMSULOSIN HYDROCHLORIDE 0.4 MG CAP PO SCH ×2 (10:44→21:41)
[2021-06-20] MEDS: CARVEDILOL 3.125 MG TAB PO SCH ×2 (10:44→21:41)
[2021-06-20] MEDS: glipiZIDE 5 MG TAB PO SCH (12:27)
[2021-06-20] MEDS: SODIUM FERR GLUC 62.5MG/5ML 125 MG in SODIUM CHL 0.9% 100 ML IV SCH (12:39)
[2021-06-20 12:57] VITALS: BP 150/79
[2021-06-20 17:00] VITALS: BP 140/79
[2021-06-20] MEDS: DOXAZOSIN MESYL 2 MG TAB PO SCH (21:41)
[2021-06-20 22:00] VITALS: BP 146/56
[2021-06-21 05:00] VITALS: BP 153/68
[2021-06-21] MEDS: ACCU-CHEK COMFORT CURVE STRIP VI SCH ×3 (06:27→17:00)
[2021-06-21] MEDS: InsuLIN REG 1unit/0.01ml Soln (100units/ml) SC SCH ×3 (06:30→17:00)
[2021-06-21 07:08] LABS: Calcium 8.9 mg/dL (8.5-10.1); Potassium 3.9 mmol/L (3.5-5.1)
[2021-06-21 07:12] LABS: BUN/Creatinine Ratio 29.5
[2021-06-21 09:00] VITALS: BP 169/78
[2021-06-21] MEDS: TAMSULOSIN HYDROCHLORIDE 0.4 MG CAP PO SCH (09:13)
[2021-06-21] MEDS: glipiZIDE 5 MG TAB PO SCH (09:13)
[2021-06-21] MEDS: CARVEDILOL 3.125 MG TAB PO SCH (09:14)
[2021-06-21] MEDS: PARoxetine 20 MG TAB PO SCH (09:14)
[2021-06-21] MEDS: MAGNESIUM OXIDE 400 MG TAB PO SCH (09:15)
[2021-06-21] MEDS: SODIUM FERR GLUC 62.5MG/5ML 125 MG in SODIUM CHL 0.9% 100 ML IV SCH (12:00)
[2021-06-21] MEDS: cloNIDine HCL 0.1 MG TAB PO PRN (12:13)
[2021-06-21 13:00] VITALS: BP 158/80
[2021-06-21 17:00] VITALS: BP 151/87
== END 2021-06-21 19:15 | disposition home or self-care (01) | DRG 659 ==
LOC: TELE-WESTW 19:53
PROVIDERS: ADMIT Internal Medicine Cardiovascular Disease; ATTEND Internal Medicine Cardiovascular Disease
PROC: 30233N1 Transfusion of Nonautologous Red Blood Cells into Peripheral Vein, Percutaneous Approach (ICD-10-PCS; 2021-06-05)
PROC: 0T9030Z Drainage of Right Kidney with Drainage Device, Percutaneous Approach (ICD-10-PCS; 2021-06-10)
PROC: BT41ZZZ Ultrasonography of Right Kidney (ICD-10-PCS; 2021-06-10)
PROC: BT1D1ZZ Fluoroscopy of Right Kidney, Ureter and Bladder using Low Osmolar Contrast (ICD-10-PCS; 2021-06-10)
PROC: BT141ZZ Fluoroscopy of Kidneys, Ureters and Bladder using Low Osmolar Contrast (ICD-10-PCS; 2021-06-17)
PROC: 0T788DZ Dilation of Bilateral Ureters with Intraluminal Device, Via Natural or Artificial Opening Endoscopic (ICD-10-PCS; principal; 2021-06-17 10:30)
DX: N13.2 Hydronephrosis with renal and ureteral calculous obstruction (principal); I50.21 Acute systolic (congestive) heart failure; I13.2 Hypertensive heart and chronic kidney disease with heart failure and with stage 5 chronic kidney disease, or end stage renal disease; E44.1 Mild protein-calorie malnutrition; N18.6 End stage renal disease; N17.9 Acute kidney failure, unspecified; I25.5 Ischemic cardiomyopathy; D64.9 Anemia, unspecified; I25.10 Atherosclerotic heart disease of native coronary artery without angina pectoris; N40.0 Benign prostatic hyperplasia without lower urinary tract symptoms; E78.5 Hyperlipidemia, unspecified; E11.21 Type 2 diabetes mellitus with diabetic nephropathy; R80.9 Proteinuria, unspecified; Z20.822 Contact with and (suspected) exposure to COVID-19; J44.9 Chronic obstructive pulmonary disease, unspecified; E11.22 Type 2 diabetes mellitus with diabetic chronic kidney disease; Z79.02 Long term (current) use of antithrombotics/antiplatelets; Z79.84 Long term (current) use of oral hypoglycemic drugs; Z80.8 Family history of malignant neoplasm of other organs or systems; Z82.49 Family history of ischemic heart disease and other diseases of the circulatory system; Z83.3 Family history of diabetes mellitus; Z87.442 Personal history of urinary calculi; Z93.6 Other artificial openings of urinary tract status; Z95.5 Presence of coronary angioplasty implant and graft; Z68.32 Body mass index [BMI] 32.0-32.9, adult
CPT/HCPCS: 36415; 50432; 71045; 74018; 74176; 76000; 76775; 76942; 78707; 80048; 80053; 81001; 82306; 82570; 82962; 83735; 83880; 83970; 84100; 84156; 84300; 84550; 85014; 85018; 85025; 85610; 85730; 86850; 86900; 86901; 86920; 87086; 87426; 93005; 96374; 99152; 99153; C1729; G0378; G0463; J1756; J1815; J2250; J2405; J2704; J3490; P9047

== ENCOUNTER → 2021-07-30 | Outpatient (CLI) | payer MEDICARE, OTHER ==
[~2021-07-30] MED LIST changes: -ASPI-231 PO; +ASPI1TAB20 PO; -CARV12.544 PO; +CARV6.2551 PO; +DOXA1TAB42 PO; -EMPA1TAB3 PO; -HYDR25TA4 PO; +MAGN400T40 PO; +TAMS0.4C36 PO
[2021-07-30 16:08] LABS: Urine Blood 1+ /uL (Negative); Urine Specific Gravity 1.012 (1.001-1.035)
[2021-07-30 16:15] LABS: Basophils # (auto) 0.1 10 ^3/uL (0-0.2); Eosinophils # (auto) 0.1 10 ^3/uL (0-0.8); Eosinophils % (auto) 1.4 % (0.0-7.0); Hematocrit 34.9 % (41.0-53.0); Hemoglobin 11.4 g/dL (13.5-17.5); Lymphocytes # (auto) 0.5 10 ^3/uL (0.4-5.4); Lymphocytes % (auto) 7.3 % (10.0-50.0); Mean Corpuscular Hemoglobin 27.5 pg (28.0-32.0); Mean Corpuscular Hgb Conc. 32.7 g/dL (32.0-36.0); Mean Corpuscular Volume 84.1 fL (80.0-100.0); Monocytes # (auto) 0.7 10 ^3/uL (0-1.3); Monocytes % (auto) 9.9 % (0.0-12.0); Neutrophils # (auto) 5.5 10 ^3/uL (1.6-8.6); Neutrophils % (auto) 79.4 % (37.0-80.0); Red Blood Cells 4.15 10^6/uL (4.5-5.90); Red Cell Distribution Width 23.9 % (11.8-14.3); White Blood Cell 6.9 10^3/uL (4.4-10.8)
[2021-07-30 16:20] LABS: Calcium 8.8 mg/dL (8.5-10.1); Potassium 4.1 mmol/L (3.5-5.1)
[2021-07-30 16:23] LABS: Albumin 3.1 g/dL (3.4-5.0); BUN/Creatinine Ratio 11.3
[2021-07-30 16:26] LABS: Bilirubin, Total 0.4 mg/dL (0.2-1.0); Uric Acid 8.2 mg/dL (3.5-7.2)
[2021-07-30 22:01] LABS: Creatinine, Urine 77 mg/dL (30.0-125.0); Protein, Urine 123.3 mg/dL (0.0-11.9)
== END | disposition home or self-care (01) ==
LOC: LAB 12:41
PROVIDERS: ATTEND Internal Medicine Cardiovascular Disease
DX: N18.31 Chronic kidney disease, stage 3a (principal)
CPT/HCPCS: 36415; 80053; 81003; 82306; 82570; 83970; 84156; 84550; 85025

== ENCOUNTER 2021-09-22 14:14 | Inpatient (IN) | payer MEDICARE, OTHER ==
[~2021-09-22] VITALS: Ht 182.9 cm; Wt 82.4 kg
[~2021-09-22 14:14] MED LIST changes: -IODIXANOL 320MG/ML 100ML BTL IV ONE; -READI-CAT 2 (BARIUM SULF)(VANILLA SMOOTHIE) 450ML ONE; -SODIUM CHLORIDE 0.9% 500 ML IV ONE
[2021-09-22 15:30] LABS: Basophils # (auto) 0.1 10 ^3/uL (0-0.2); Basophils % (auto) 1.9 % (0.0-2.0); Eosinophils # (auto) 0.2 10 ^3/uL (0-0.8); Eosinophils % (auto) 3.6 % (0.0-7.0); Hematocrit 25.1 % (41.0-53.0); Lymphocytes # (auto) 0.8 10 ^3/uL (0.4-5.4); Mean Corpuscular Hemoglobin 28.3 pg (28.0-32.0); Mean Corpuscular Volume 88.2 fL (80.0-100.0); Monocytes # (auto) 0.6 10 ^3/uL (0-1.3); Monocytes % (auto) 11.3 % (0.0-12.0); Neutrophils # (auto) 3.4 10 ^3/uL (1.6-8.6); Neutrophils % (auto) 68.2 % (37.0-80.0); Red Blood Cells 2.85 10^6/uL (4.5-5.90); Red Cell Distribution Width 16.4 % (11.8-14.3)
[2021-09-22 16:05] LABS: Albumin 3.2 g/dL (3.4-5.0); BUN/Creatinine Ratio 14.3; Calcium 8.1 mg/dL (8.5-10.1); Potassium 5.5 mmol/L (3.5-5.1)
[2021-09-22 16:08] LABS: Bilirubin, Total 0.3 mg/dL (0.2-1.0); Total Protein 6.4 g/dL (6.4-8.2)
[2021-09-22] MEDS ORDERED: ONDANSETRON HCL 4 MG/2 ML VIAL IV PRN (16:30)
[2021-09-22] MEDS ORDERED: NITROGLYCERIN 0.4 MG SL TAB SL PRN (16:30)
[2021-09-22] MEDS ORDERED: cefTRIAXone 1GM/50ML D5W 50 ML IV ONE (16:30)
[2021-09-22] MEDS ORDERED: MORPHINE SULFATE INJECTION 2 MG/ML SYRG IV PRN (16:30)
[2021-09-23] MEDS ORDERED: LABETALOL HCL 5 MG/ML 4ML SYRINGE IV ONE (04:30)
[2021-09-23 05:32] LABS: Urine Bacteria NONE SEEN /hpf (None Seen); Urine Blood 2+ /uL (Negative); Urine Specific Gravity 1.007 (1.001-1.035); Urine WBC 3 /hpf (0 - 3)
[2021-09-23] MEDS ORDERED: ACETAMINOPHEN 325 MG TAB PO ONE (07:00)
[2021-09-23] MEDS ORDERED: dilTIAZem 25 MG/5 ML VIAL IV ONE (07:00)
[2021-09-23 12:33] VITALS: BP 177/95
[2021-09-23] MEDS ORDERED: glipiZIDE 5 MG TAB PO ONE (13:00)
[2021-09-23] MEDS ORDERED: ASPirin-EC 81 mg tab PO ONE (13:00)
[2021-09-23] MEDS ORDERED: BENAZEPRIL HCL 10 MG TAB PO ONE (13:00)
[2021-09-23] MEDS ORDERED: CARVEDILOL 3.125 MG TAB PO ONE (13:00)
[2021-09-23] MEDS ORDERED: MAGNESIUM OXIDE 400 MG TAB PO ONE (13:00)
[2021-09-23 16:28] VITALS: BP 177/100
[2021-09-23] MEDS: cloNIDine HCL 0.1 MG TAB PO PRN (17:49)
[2021-09-23 20:00] VITALS: BP 124/61
[2021-09-23 22:00] VITALS: BP 124/61
[2021-09-23] MEDS ORDERED: cloNIDine HCL 0.1 MG TAB PO SCH (22:00)
[2021-09-23] MEDS: TAMSULOSIN HYDROCHLORIDE 0.4 MG CAP PO SCH (22:27)
[2021-09-23] MEDS: DOXAZOSIN MESYL 2 MG TAB PO SCH (22:27)
[2021-09-23] MEDS: CARVEDILOL 3.125 MG TAB PO SCH (22:28)
[2021-09-24 05:00] VITALS: BP 118/56
[2021-09-24 09:00] VITALS: BP 152/71
[2021-09-24] MEDS: PARoxetine 20 MG TAB PO SCH (10:51)
[2021-09-24] MEDS: CARVEDILOL 3.125 MG TAB PO SCH ×2 (10:53→22:19)
[2021-09-24] MEDS: TAMSULOSIN HYDROCHLORIDE 0.4 MG CAP PO SCH ×2 (10:53→22:17)
[2021-09-24] MEDS: glipiZIDE 5 MG TAB PO SCH (10:58)
[2021-09-24 16:53] VITALS: BP 152/76
[2021-09-24 18:59] LABS: Albumin 2.8 g/dL (3.4-5.0); BUN/Creatinine Ratio 14.2; Calcium 8.5 mg/dL (8.5-10.1); Potassium 5.3 mmol/L (3.5-5.1)
[2021-09-24 19:26] LABS: Bilirubin, Total 0.3 mg/dL (0.2-1.0); Total Protein 5.6 g/dL (6.4-8.2)
[2021-09-24 20:15] VITALS: BP 158/80
[2021-09-24 22:00] VITALS: BP 158/80
[2021-09-24] MEDS: DOXAZOSIN MESYL 2 MG TAB PO SCH (22:17)
[2021-09-25 05:00] VITALS: BP 155/75
[2021-09-25 09:00] VITALS: BP 156/74
[2021-09-25] MEDS: glipiZIDE 5 MG TAB PO SCH (10:00)
[2021-09-25] MEDS: CARVEDILOL 3.125 MG TAB PO SCH ×2 (10:00→22:03)
[2021-09-25] MEDS: PARoxetine 20 MG TAB PO SCH (10:00)
[2021-09-25] MEDS: TAMSULOSIN HYDROCHLORIDE 0.4 MG CAP PO SCH ×2 (10:00→21:59)
[2021-09-25 13:00] VITALS: BP 154/87
[2021-09-25] MEDS ORDERED: ACETAMINOPHEN 325 MG TAB PO PRN (13:15)
[2021-09-25 17:00] VITALS: BP 154/80
[2021-09-25 17:14] LABS: BUN/Creatinine Ratio 14.6; Calcium 8.4 mg/dL (8.5-10.1); Potassium 5.1 mmol/L (3.5-5.1)
[2021-09-25 22:00] VITALS: BP 141/75
[2021-09-25] MEDS: DOXAZOSIN MESYL 2 MG TAB PO SCH (22:02)
[2021-09-25] MEDS ORDERED: SODIUM FERR GLUC 62.5MG/5ML 125 MG in SODIUM CHL 0.9% 100 ML IV ONE (22:30)
[2021-09-25] MEDS ORDERED: SODIUM FERRIC GLUC CPLEX 62.5MG/5ML VIAL IV ONE (23:19)
[2021-09-26] VITALS (7 sets, daily range): BP systolic 148–158; BP diastolic 76–91
[2021-09-26] MEDS: PIPERACILLIN-TAZOB 2.25GM 50 ML IV SCH ×3 (06:19→22:00)
[2021-09-26 07:16] LABS: BUN/Creatinine Ratio 15.6; Calcium 8.7 mg/dL (8.5-10.1)
[2021-09-26 07:27] LABS: Basophils # (auto) 0.1 10 ^3/uL (0-0.2); Basophils % (auto) 3.2 % (0.0-2.0); Eosinophils # (auto) 0.2 10 ^3/uL (0-0.8); Eosinophils % (auto) 6.5 % (0.0-7.0); Hematocrit 22.3 % (41.0-53.0); Hemoglobin 7.3 g/dL (13.5-17.5); Lymphocytes # (auto) 0.6 10 ^3/uL (0.4-5.4); Lymphocytes % (auto) 15.3 % (10.0-50.0); Mean Corpuscular Hemoglobin 28.8 pg (28.0-32.0); Mean Corpuscular Hgb Conc. 32.6 g/dL (32.0-36.0); Mean Corpuscular Volume 88.1 fL (80.0-100.0); Monocytes # (auto) 0.5 10 ^3/uL (0-1.3); Monocytes % (auto) 12.8 % (0.0-12.0); Neutrophils # (auto) 2.3 10 ^3/uL (1.6-8.6); Neutrophils % (auto) 62.2 % (37.0-80.0); Red Blood Cells 2.53 10^6/uL (4.5-5.90); Red Cell Distribution Width 16.5 % (11.8-14.3); White Blood Cell 3.7 10^3/uL (4.4-10.8)
[2021-09-26] MEDS: TAMSULOSIN HYDROCHLORIDE 0.4 MG CAP PO SCH ×2 (09:52→22:00)
[2021-09-26] MEDS: glipiZIDE 5 MG TAB PO SCH (09:52)
[2021-09-26] MEDS: PARoxetine 20 MG TAB PO SCH (09:52)
[2021-09-26] MEDS: CARVEDILOL 3.125 MG TAB PO SCH ×2 (09:52→22:00)
[2021-09-26] MEDS ORDERED: EPOETIN ALFA-EPBX 10,000 UNIT/1ML VIAL SC ONE (12:00)
[2021-09-26 19:25] LABS: Urine Bacteria FEW /hpf (None Seen); Urine Blood 2+ /uL (Negative); Urine Specific Gravity 1.007 (1.001-1.035); Urine WBC 6 /hpf (0 - 3)
[2021-09-26] MEDS: DOXAZOSIN MESYL 2 MG TAB PO SCH (22:00)
[2021-09-27 05:00] VITALS: BP 152/74
[2021-09-27 05:00] LABS: Basophils # (auto) 0.1 10 ^3/uL (0-0.2); Eosinophils # (auto) 0.3 10 ^3/uL (0-0.8); Hematocrit 23.2 % (41.0-53.0); Lymphocytes # (auto) 0.6 10 ^3/uL (0.4-5.4); Monocytes # (auto) 0.6 10 ^3/uL (0-1.3); Neutrophils # (auto) 2.3 10 ^3/uL (1.6-8.6); Nucleated Red Blood Cells % 0.1 %
[2021-09-27 05:03] LABS: Basophils % (auto) 2.2 % (0.0-2.0); Hemoglobin 7.8 g/dL (13.5-17.5); Mean Corpuscular Hemoglobin 29.4 pg (28.0-32.0); Mean Corpuscular Hgb Conc. 33.7 g/dL (32.0-36.0); Mean Corpuscular Volume 87.3 fL (80.0-100.0); Monocytes % (auto) 16.2 % (0.0-12.0); Neutrophils % (auto) 59.6 % (37.0-80.0); Red Blood Cells 2.65 10^6/uL (4.5-5.90); White Blood Cell 3.8 10^3/uL (4.4-10.8)
[2021-09-27 05:22] LABS: Albumin 3.1 g/dL (3.4-5.0); Calcium 8.7 mg/dL (8.5-10.1); Potassium 4.8 mmol/L (3.5-5.1)
[2021-09-27 05:25] LABS: BUN/Creatinine Ratio 14.8
[2021-09-27 05:28] LABS: Bilirubin, Total 0.3 mg/dL (0.2-1.0); Total Protein 5.8 g/dL (6.4-8.2)
[2021-09-27] MEDS: PIPERACILLIN-TAZOB 2.25GM 50 ML IV SCH ×3 (06:09→22:16)
[2021-09-27 08:30] VITALS: BP 163/84
[2021-09-27 09:00] VITALS: BP 163/84
[2021-09-27] MEDS: HYDROmorphone HCL 2 MG/ML VL IV PRN (09:49)
[2021-09-27] MEDS: TAMSULOSIN HYDROCHLORIDE 0.4 MG CAP PO SCH ×2 (12:03→22:18)
[2021-09-27] MEDS: PARoxetine 20 MG TAB PO SCH (12:03)
[2021-09-27] MEDS: CARVEDILOL 3.125 MG TAB PO SCH ×2 (12:04→22:18)
[2021-09-27] MEDS: glipiZIDE 5 MG TAB PO SCH (12:04)
[2021-09-27 13:00] VITALS: BP 149/86
[2021-09-27 17:00] VITALS: BP 151/83
[2021-09-27 22:00] VITALS: BP 153/99
[2021-09-27] MEDS: DOXAZOSIN MESYL 2 MG TAB PO SCH (22:17)
[2021-09-28] VITALS (11 sets, daily range): BP systolic 138–179; BP diastolic 70–96
[2021-09-28] MEDS: PIPERACILLIN-TAZOB 2.25GM 50 ML IV SCH ×3 (06:23→21:37)
[2021-09-28] MEDS: HYDROmorphone HCL 2 MG/ML VL IV PRN (08:16)
[2021-09-28] MEDS: cloNIDine HCL 0.1 MG TAB PO PRN (08:42)
[2021-09-28] MEDS: glipiZIDE 5 MG TAB PO SCH (10:47)
[2021-09-28] MEDS: TAMSULOSIN HYDROCHLORIDE 0.4 MG CAP PO SCH ×2 (10:48→21:38)
[2021-09-28] MEDS: CARVEDILOL 3.125 MG TAB PO SCH ×2 (10:48→21:38)
[2021-09-28] MEDS: PARoxetine 20 MG TAB PO SCH (10:48)
[2021-09-28] MEDS: DOXAZOSIN MESYL 2 MG TAB PO SCH (21:37)
[2021-09-29 05:00] VITALS: BP 167/94
[2021-09-29] MEDS: PIPERACILLIN-TAZOB 2.25GM 50 ML IV SCH ×3 (05:24→22:10)
[2021-09-29] MEDS: cloNIDine HCL 0.1 MG TAB PO PRN (05:25)
[2021-09-29 08:15] VITALS: BP 145/69
[2021-09-29 09:00] VITALS: BP 145/69
[2021-09-29] MEDS: glipiZIDE 5 MG TAB PO SCH (10:17)
[2021-09-29] MEDS: TAMSULOSIN HYDROCHLORIDE 0.4 MG CAP PO SCH ×2 (10:17→22:14)
[2021-09-29] MEDS: PARoxetine 20 MG TAB PO SCH (10:17)
[2021-09-29] MEDS: CARVEDILOL 3.125 MG TAB PO SCH ×2 (10:17→22:14)
[2021-09-29 13:00] VITALS: BP 152/66
[2021-09-29 17:05] VITALS: BP 144/70
[2021-09-29 22:00] VITALS: BP 164/75
[2021-09-29] MEDS: DOXAZOSIN MESYL 2 MG TAB PO SCH (22:11)
[2021-09-30] MEDS: HYDROmorphone HCL 2 MG/ML VL IV PRN (04:20)
[2021-09-30] MEDS: cloNIDine HCL 0.1 MG TAB PO PRN (04:22)
[2021-09-30 05:00] VITALS: BP 154/78
[2021-09-30] MEDS: PIPERACILLIN-TAZOB 2.25GM 50 ML IV SCH ×2 (06:10→14:00)
[2021-09-30 09:00] VITALS: BP 115/55
[2021-09-30] MEDS: CARVEDILOL 3.125 MG TAB PO SCH (10:00)
[2021-09-30] MEDS: TAMSULOSIN HYDROCHLORIDE 0.4 MG CAP PO SCH (10:14)
[2021-09-30] MEDS: glipiZIDE 5 MG TAB PO SCH (10:15)
[2021-09-30] MEDS: PARoxetine 20 MG TAB PO SCH (10:15)
[2021-09-30 13:16] VITALS: BP 151/65
[2021-09-30 14:37] VITALS: BP 115/55
== END 2021-09-30 16:28 | disposition home or self-care (01) | DRG 693 ==
LOC: ER 14:14 → TELE 16:30 → TELE-CENTR 09-23 10:57
PROVIDERS: ADMIT Internal Medicine Cardiovascular Disease; ATTEND Internal Medicine Cardiovascular Disease
PROC: 30233N1 Transfusion of Nonautologous Red Blood Cells into Peripheral Vein, Percutaneous Approach (ICD-10-PCS; principal; 2021-09-28)
DX: N13.1 Hydronephrosis with ureteral stricture, not elsewhere classified (principal); I50.21 Acute systolic (congestive) heart failure; N17.0 Acute kidney failure with tubular necrosis; E87.5 Hyperkalemia; D64.9 Anemia, unspecified; E78.5 Hyperlipidemia, unspecified; J44.9 Chronic obstructive pulmonary disease, unspecified; I25.10 Atherosclerotic heart disease of native coronary artery without angina pectoris; M19.90 Unspecified osteoarthritis, unspecified site; M54.50 Low back pain, unspecified; I25.5 Ischemic cardiomyopathy; E11.21 Type 2 diabetes mellitus with diabetic nephropathy; E11.40 Type 2 diabetes mellitus with diabetic neuropathy, unspecified; I10 Essential (primary) hypertension; Z80.8 Family history of malignant neoplasm of other organs or systems; Z82.49 Family history of ischemic heart disease and other diseases of the circulatory system; Z83.3 Family history of diabetes mellitus; Z79.84 Long term (current) use of oral hypoglycemic drugs
CPT/HCPCS: 36415; 74176; 76775; 80048; 80053; 80061; 81001; 82306; 82607; 82962; 83036; 83690; 83880; 84153; 84154; 84403; 84439; 84443; 85025; 86850; 86900; 86901; 86920; 87426; 96360; 96361; 96365; 99291; G0378; G0463; J0696; J2543; J3490; Q9967

== ENCOUNTER → 2021-09-22 | Outpatient (CLI) | payer MEDICARE, OTHER ==
[~2021-09-22] MED LIST changes: +IODIXANOL 320MG/ML 100ML BTL IV ONE; +READI-CAT 2 (BARIUM SULF)(VANILLA SMOOTHIE) 450ML ONE; +SODIUM CHLORIDE 0.9% 500 ML IV ONE
[2021-09-22 10:00] VITALS: BP 189/95
[2021-09-22 11:10] LABS: Basophils # (auto) 0.1 10 ^3/uL (0-0.2); Basophils % (auto) 1.7 % (0.0-2.0); Eosinophils # (auto) 0.2 10 ^3/uL (0-0.8); Eosinophils % (auto) 3.5 % (0.0-7.0); Hematocrit 27.4 % (41.0-53.0); Hemoglobin 8.5 g/dL (13.5-17.5); Lymphocytes # (auto) 0.8 10 ^3/uL (0.4-5.4); Lymphocytes % (auto) 15.3 % (10.0-50.0); Mean Corpuscular Hemoglobin 27.8 pg (28.0-32.0); Mean Corpuscular Hgb Conc. 31.1 g/dL (32.0-36.0); Mean Corpuscular Volume 89.4 fL (80.0-100.0); Monocytes # (auto) 0.6 10 ^3/uL (0-1.3); Monocytes % (auto) 11.1 % (0.0-12.0); Neutrophils # (auto) 3.5 10 ^3/uL (1.6-8.6); Neutrophils % (auto) 68.4 % (37.0-80.0); Red Blood Cells 3.07 10^6/uL (4.5-5.90); Red Cell Distribution Width 16.8 % (11.8-14.3); White Blood Cell 5.1 10^3/uL (4.4-10.8)
[2021-09-22 11:21] LABS: Albumin 3.5 g/dL (3.4-5.0); Potassium 4.9 mmol/L (3.5-5.1)
[2021-09-22 11:29] LABS: BUN/Creatinine Ratio 13.9; Bilirubin, Total 0.3 mg/dL (0.2-1.0); Total Protein 7.6 g/dL (6.4-8.2)
[2021-09-22 11:55] LABS: Free T4 (Free Thyroxine) 0.74 ng/dL (0.89-1.76)
[2021-09-22 12:40] LABS: Prostate Specific Antigen 4.61 ng/mL (0.0-4.0)
[2021-09-22 13:10] VITALS: BP 204/106
== END | disposition home or self-care (01) ==
LOC: Rad HDHVI 10:01
PROVIDERS: ATTEND Internal Medicine Cardiovascular Disease
DX: D51.3 Other dietary vitamin B12 deficiency anemia (principal)
CPT/HCPCS: 36415; 74176; 80053; 80061; 82306; 82607; 83036; 84153; 84154; 84403; 84439; 84443; 85025; 96360; 96361; G0463; Q9967

== ENCOUNTER 2021-10-29 08:42 | Inpatient (IN) | payer MEDICARE, OTHER ==
[~2021-10-29] VITALS: Ht 177.8 cm; Wt 88.2 kg
[2021-10-29 10:50] LABS: Basophils # (auto) 0 10 ^3/uL (0-0.2); Basophils % (auto) 0.5 % (0.0-2.0); Eosinophils # (auto) 0 10 ^3/uL (0-0.8); Eosinophils % (auto) 0.3 % (0.0-7.0); Hematocrit 30.3 % (41.0-53.0); Hemoglobin 10.2 g/dL (13.5-17.5); Lymphocytes # (auto) 0.4 10 ^3/uL (0.4-5.4); Lymphocytes % (auto) 5.1 % (10.0-50.0); Mean Corpuscular Hemoglobin 28.9 pg (28.0-32.0); Mean Corpuscular Hgb Conc. 33.7 g/dL (32.0-36.0); Mean Corpuscular Volume 85.8 fL (80.0-100.0); Monocytes # (auto) 0.5 10 ^3/uL (0-1.3); Monocytes % (auto) 6.7 % (0.0-12.0); Neutrophils # (auto) 6.4 10 ^3/uL (1.6-8.6); Neutrophils % (auto) 87.4 % (37.0-80.0); Red Blood Cells 3.53 10^6/uL (4.5-5.90); Red Cell Distribution Width 17.1 % (11.8-14.3); White Blood Cell 7.3 10^3/uL (4.4-10.8)
[2021-10-29 11:12] LABS: Albumin 3.7 g/dL (3.4-5.0); Magnesium 2.9 mg/dL (1.6-2.6); Potassium 3.4 mmol/L (3.5-5.1)
[2021-10-29 11:17] LABS: BUN/Creatinine Ratio 17.4; Bilirubin, Total 0.4 mg/dL (0.2-1.0); Total Protein 7.3 g/dL (6.4-8.2)
[2021-10-29] MEDS ORDERED: SODIUM CHLORIDE 0.9% 1,000 ML IV ONE (11:30)
[2021-10-29 16:24] LABS: Urine Bacteria FEW /hpf (None Seen); Urine Blood 2+ /uL (Negative); Urine Hyaline Cast FEW /lpf (0 - 2); Urine Mucus FEW (None Seen); Urine Specific Gravity 1.009 (1.001-1.035); Urine WBC 115 /hpf (0 - 3); Urine WBC Clumps PRESENT /hpf (None Seen)
[2021-10-29] MEDS ORDERED: MORPHINE SULFATE INJECTION 2 MG/ML SYRG IV PRN (17:15)
[2021-10-29] MEDS ORDERED: NITROGLYCERIN 0.4 MG SL TAB SL PRN (17:15)
[2021-10-29] MEDS ORDERED: DEXTROSE (50%) 50ML SYRG IV ONE (22:15)
[2021-10-29] MEDS ORDERED: DEXTROSE (50%) 50ML SYRG IV PRN (23:00)
[2021-10-30] VITALS: BP 150/78
[2021-10-30] MEDS: ACCU-CHEK COMFORT CURVE STRIP VI SCH ×5 (00:18→23:20)
[2021-10-30] MEDS: ACETAMINOPHEN 325 MG TAB PO PRN ×4 (03:53→23:35)
[2021-10-30 05:00] VITALS: BP 166/95
[2021-10-30 05:32] LABS: Basophils # (auto) 0 10 ^3/uL (0-0.2); Basophils % (auto) 0.6 % (0.0-2.0); Eosinophils # (auto) 0.1 10 ^3/uL (0-0.8); Eosinophils % (auto) 1.1 % (0.0-7.0); Hematocrit 28.2 % (41.0-53.0); Hemoglobin 9.6 g/dL (13.5-17.5); Lymphocytes # (auto) 0.4 10 ^3/uL (0.4-5.4); Lymphocytes % (auto) 6.6 % (10.0-50.0); Mean Corpuscular Hemoglobin 28.9 pg (28.0-32.0); Mean Corpuscular Hgb Conc. 34.1 g/dL (32.0-36.0); Mean Corpuscular Volume 84.8 fL (80.0-100.0); Monocytes # (auto) 0.6 10 ^3/uL (0-1.3); Monocytes % (auto) 9.8 % (0.0-12.0); Neutrophils # (auto) 5.2 10 ^3/uL (1.6-8.6); Neutrophils % (auto) 81.9 % (37.0-80.0); Nucleated Red Blood Cells % 0.1 %; Red Blood Cells 3.33 10^6/uL (4.5-5.90); Red Cell Distribution Width 16.8 % (11.8-14.3); White Blood Cell 6.3 10^3/uL (4.4-10.8)
[2021-10-30 05:39] LABS: Calcium 8.7 mg/dL (8.5-10.1); Potassium 3.8 mmol/L (3.5-5.1)
[2021-10-30 05:46] LABS: Albumin 3.6 g/dL (3.4-5.0); BUN/Creatinine Ratio 16.7; Bilirubin, Total 0.5 mg/dL (0.2-1.0); Total Protein 6.4 g/dL (6.4-8.2)
[2021-10-30] MEDS: InsuLIN REG 1unit/0.01ml Soln (100units/ml) SC SCH ×5 (06:00→23:24)
[2021-10-30] MEDS ORDERED: InsuLIN REG 1unit/0.01ml Soln (100units/ml) SC SCH (07:00)
[2021-10-30 09:00] VITALS: BP 153/80
[2021-10-30] MEDS: cefTRIAXone 1GM/50ML D5W 50 ML IV SCH (09:21)
[2021-10-30] MEDS: ASPirin 81 mg TAB PO SCH (09:21)
[2021-10-30] MEDS ORDERED: METOPROLOL TARTRATE 25 MG TAB PO SCH (10:00)
[2021-10-30] MEDS ORDERED: ENOXAPARIN SOD 30 MG/0.3 ML SYRINGE SC SCH (10:00)
[2021-10-30] MEDS ORDERED: HEPARIN SODIUM (PORCINE) 5000 UNITS/ML 1ML VIAL IV SCH (10:00)
[2021-10-30] MEDS: ISOSORBIDE MONONITRATE ER 60 MG TAB PO SCH (12:10)
[2021-10-30] MEDS: CARVEDILOL 3.125 MG TAB PO SCH ×2 (12:10→21:04)
[2021-10-30 13:00] VITALS: BP 131/76
[2021-10-30] MEDS: TAMSULOSIN HYDROCHLORIDE 0.4 MG CAP PO SCH (17:37)
[2021-10-30] MEDS: DOXAZOSIN MESYL 2 MG TAB PO SCH (21:04)
[2021-10-30 22:00] VITALS: BP 142/89
[2021-10-31 05:00] VITALS: BP 135/73
[2021-10-31 05:21] LABS: Basophils # (auto) 0 10 ^3/uL (0-0.2); Eosinophils # (auto) 0.1 10 ^3/uL (0-0.8); Eosinophils % (auto) 2.3 % (0.0-7.0); Hematocrit 27.9 % (41.0-53.0); Hemoglobin 9.3 g/dL (13.5-17.5); Lymphocytes # (auto) 0.6 10 ^3/uL (0.4-5.4); Lymphocytes % (auto) 10.3 % (10.0-50.0); Mean Corpuscular Hemoglobin 28.7 pg (28.0-32.0); Mean Corpuscular Hgb Conc. 33.5 g/dL (32.0-36.0); Mean Corpuscular Volume 85.5 fL (80.0-100.0); Monocytes # (auto) 0.4 10 ^3/uL (0-1.3); Monocytes % (auto) 7.9 % (0.0-12.0); Neutrophils # (auto) 4.4 10 ^3/uL (1.6-8.6); Neutrophils % (auto) 79.5 % (37.0-80.0); Nucleated Red Blood Cells % 0.3 %; Red Blood Cells 3.26 10^6/uL (4.5-5.90); Red Cell Distribution Width 17.2 % (11.8-14.3); White Blood Cell 5.6 10^3/uL (4.4-10.8)
[2021-10-31 05:32] LABS: Calcium 9.3 mg/dL (8.5-10.1); Potassium 4.2 mmol/L (3.5-5.1)
[2021-10-31 05:38] LABS: BUN/Creatinine Ratio 17.4
[2021-10-31] MEDS: InsuLIN REG 1unit/0.01ml Soln (100units/ml) SC SCH ×4 (06:00→23:49)
[2021-10-31] MEDS: ACCU-CHEK COMFORT CURVE STRIP VI SCH ×4 (06:24→23:50)
[2021-10-31] MEDS: ASPirin 81 mg TAB PO SCH (08:56)
[2021-10-31] MEDS: cefTRIAXone 1GM/50ML D5W 50 ML IV SCH (08:56)
[2021-10-31] MEDS: CARVEDILOL 3.125 MG TAB PO SCH ×2 (08:56→23:04)
[2021-10-31] MEDS: ISOSORBIDE MONONITRATE ER 60 MG TAB PO SCH (08:57)
[2021-10-31] MEDS: ACETAMINOPHEN 325 MG TAB PO PRN (08:57)
[2021-10-31 09:00] VITALS: BP 175/104
[2021-10-31] MEDS: SODIUM CITR/CITRIC ACID ORAL SOLN 30 ML PO SCH ×3 (09:00→18:19)
[2021-10-31 13:00] VITALS: BP 130/88
[2021-10-31] MEDS: SODIUM BICARBONATE 650 MG TAB PO SCH ×2 (13:11→23:03)
[2021-10-31 17:00] VITALS: BP 128/88
[2021-10-31] MEDS: TAMSULOSIN HYDROCHLORIDE 0.4 MG CAP PO SCH (18:19)
[2021-10-31 22:00] VITALS: BP 150/73
[2021-10-31] MEDS: DOXAZOSIN MESYL 2 MG TAB PO SCH (23:04)
[2021-11-01 05:00] VITALS: BP 150/80
[2021-11-01] MEDS: InsuLIN REG 1unit/0.01ml Soln (100units/ml) SC SCH ×3 (05:29→18:08)
[2021-11-01] MEDS: SODIUM BICARBONATE 650 MG TAB PO SCH ×3 (05:29→21:46)
[2021-11-01] MEDS: ACCU-CHEK COMFORT CURVE STRIP VI SCH ×3 (05:30→18:09)
[2021-11-01] MEDS: ACETAMINOPHEN 325 MG TAB PO PRN ×2 (06:03→16:18)
[2021-11-01 08:21] LABS: INR 1.07 (0.9-1.15)
[2021-11-01 09:00] VITALS: BP 133/70
[2021-11-01] MEDS: CARVEDILOL 3.125 MG TAB PO SCH ×2 (09:07→21:47)
[2021-11-01] MEDS: cefTRIAXone 1GM/50ML D5W 50 ML IV SCH (09:08)
[2021-11-01] MEDS: ASPirin 81 mg TAB PO SCH (09:08)
[2021-11-01] MEDS: ISOSORBIDE MONONITRATE ER 60 MG TAB PO SCH (09:08)
[2021-11-01] MEDS: SODIUM CITR/CITRIC ACID ORAL SOLN 30 ML PO SCH ×3 (09:08→18:07)
[2021-11-01 13:00] VITALS: BP 128/80
[2021-11-01] MEDS: SODIUM CHLORIDE 0.9% 1,000 ML IV SCH (16:25)
[2021-11-01] MEDS ORDERED: FUROSEMIDE 100 MG/10ML VIAL IV ONE (16:30)
[2021-11-01 17:00] VITALS: BP 143/96
[2021-11-01] MEDS: TAMSULOSIN HYDROCHLORIDE 0.4 MG CAP PO SCH (18:07)
[2021-11-01] MEDS: FUROSEMIDE 100 MG/10ML VIAL IV SCH (18:08)
[2021-11-01] MEDS: DOXAZOSIN MESYL 2 MG TAB PO SCH (21:47)
[2021-11-02] VITALS (8 sets, daily range): BP systolic 108–166; BP diastolic 61–98
[2021-11-02] MEDS: InsuLIN REG 1unit/0.01ml Soln (100units/ml) SC SCH ×4 (00:56→18:00)
[2021-11-02] MEDS: ACCU-CHEK COMFORT CURVE STRIP VI SCH ×4 (01:00→18:00)
[2021-11-02] MEDS: SODIUM CHLORIDE 0.9% 1,000 ML IV SCH ×3 (02:34→23:05)
[2021-11-02] MEDS: FUROSEMIDE 100 MG/10ML VIAL IV SCH ×2 (06:26→18:00)
[2021-11-02 06:41] LABS: BUN/Creatinine Ratio 17.2; Calcium 9.1 mg/dL (8.5-10.1); Potassium 3.5 mmol/L (3.5-5.1)
[2021-11-02] MEDS: SODIUM BICARBONATE 650 MG TAB PO SCH ×3 (07:07→22:51)
[2021-11-02] MEDS ORDERED: LIDOCAINE 2%HCL (LOCAL ANESTH.) INJ 20ML MDV ONE ×2 (08:49→10:00)
[2021-11-02] MEDS ORDERED: IODIXANOL 320MG/ML 100ML BTL IV ONE (08:49)
[2021-11-02] MEDS ORDERED: fentaNYL CITRATE 100 MCG/2 ML VL ONE (09:24)
[2021-11-02] MEDS ORDERED: MIDAZOLAM HCL 2MG/2ML 2ml VIAL (1mg/ml) ONE (09:24)
[2021-11-02] MEDS: ASPirin 81 mg TAB PO SCH (10:00)
[2021-11-02] MEDS: SODIUM CITR/CITRIC ACID ORAL SOLN 30 ML PO SCH ×3 (12:06→18:00)
[2021-11-02] MEDS: cefTRIAXone 1GM/50ML D5W 50 ML IV SCH (12:06)
[2021-11-02] MEDS: CARVEDILOL 3.125 MG TAB PO SCH ×2 (12:07→22:52)
[2021-11-02] MEDS: ISOSORBIDE MONONITRATE ER 60 MG TAB PO SCH (12:08)
[2021-11-02] MEDS: TAMSULOSIN HYDROCHLORIDE 0.4 MG CAP PO SCH (18:00)
[2021-11-02] MEDS: DOXAZOSIN MESYL 2 MG TAB PO SCH (22:51)
[2021-11-03] MEDS: ACCU-CHEK COMFORT CURVE STRIP VI SCH ×4 (00:33→17:48)
[2021-11-03 05:38] VITALS: BP 122/61
[2021-11-03] MEDS: InsuLIN REG 1unit/0.01ml Soln (100units/ml) SC SCH ×4 (06:00→17:49)
[2021-11-03] MEDS: FUROSEMIDE 100 MG/10ML VIAL IV SCH ×2 (06:07→17:47)
[2021-11-03] MEDS: SODIUM BICARBONATE 650 MG TAB PO SCH ×3 (06:07→21:29)
[2021-11-03 07:46] LABS: Calcium 8.5 mg/dL (8.5-10.1); Potassium 3.1 mmol/L (3.5-5.1)
[2021-11-03 07:48] LABS: BUN/Creatinine Ratio 18.8
[2021-11-03] MEDS: ASPirin 81 mg TAB PO SCH (09:07)
[2021-11-03] MEDS: SODIUM CITR/CITRIC ACID ORAL SOLN 30 ML PO SCH ×3 (09:07→17:47)
[2021-11-03] MEDS: cefTRIAXone 1GM/50ML D5W 50 ML IV SCH (09:07)
[2021-11-03] MEDS: ISOSORBIDE MONONITRATE ER 60 MG TAB PO SCH (09:08)
[2021-11-03] MEDS: CARVEDILOL 3.125 MG TAB PO SCH ×2 (09:09→21:29)
[2021-11-03] MEDS: SODIUM CHLORIDE 0.9% 1,000 ML IV SCH ×2 (09:12→17:47)
[2021-11-03 10:36] VITALS: BP 131/69
[2021-11-03] MEDS ORDERED: AMOXICILLIN TRIHYDRATE 250 MG CAP PO ONE (12:15)
[2021-11-03 13:00] VITALS: BP 109/64
[2021-11-03] MEDS ORDERED: PATIENTS OWN MEDICATION (EPOGEN 10,000 UNITS) SUBCUT ONE (16:30)
[2021-11-03 17:00] VITALS: BP 117/68
[2021-11-03] MEDS: TAMSULOSIN HYDROCHLORIDE 0.4 MG CAP PO SCH (17:47)
[2021-11-03] MEDS ORDERED: EPOETIN ALFA-EPBX 10,000 UNIT/1ML VIAL SC ONE (21:00)
[2021-11-03] MEDS: AMOXICILLIN TRIHYDRATE 250 MG CAP PO SCH (21:27)
[2021-11-03] MEDS: DOXAZOSIN MESYL 2 MG TAB PO SCH (21:28)
[2021-11-03 22:00] VITALS: BP 116/51
[2021-11-04] MEDS: ACCU-CHEK COMFORT CURVE STRIP VI SCH ×5 (00:31→23:26)
[2021-11-04] MEDS: InsuLIN REG 1unit/0.01ml Soln (100units/ml) SC SCH ×4 (00:32→18:25)
[2021-11-04 05:00] VITALS: BP 141/68
[2021-11-04] MEDS: FUROSEMIDE 100 MG/10ML VIAL IV SCH ×2 (05:59→18:25)
[2021-11-04] MEDS: SODIUM BICARBONATE 650 MG TAB PO SCH ×3 (05:59→20:14)
[2021-11-04] MEDS: SODIUM CHLORIDE 0.9% 1,000 ML IV SCH ×3 (06:00→23:26)
[2021-11-04] MEDS: ACETAMINOPHEN 325 MG TAB PO PRN ×2 (06:36→20:13)
[2021-11-04] MEDS: hydrALAZINE HCL 20 MG/ML VL IV PRN (08:28)
[2021-11-04 08:41] VITALS: BP 172/73
[2021-11-04] MEDS: AMOXICILLIN TRIHYDRATE 250 MG CAP PO SCH ×2 (09:17→20:14)
[2021-11-04] MEDS: ASPirin 81 mg TAB PO SCH (09:17)
[2021-11-04] MEDS: ISOSORBIDE MONONITRATE ER 60 MG TAB PO SCH (09:18)
[2021-11-04] MEDS: CARVEDILOL 3.125 MG TAB PO SCH ×2 (09:18→20:15)
[2021-11-04] MEDS: SODIUM CITR/CITRIC ACID ORAL SOLN 30 ML PO SCH ×3 (09:19→18:24)
[2021-11-04 09:32] LABS: BUN/Creatinine Ratio 19.7; Calcium 8.1 mg/dL (8.5-10.1)
[2021-11-04 13:00] VITALS: BP 117/62
[2021-11-04 17:00] VITALS: BP 136/68
[2021-11-04] MEDS: TAMSULOSIN HYDROCHLORIDE 0.4 MG CAP PO SCH (18:24)
[2021-11-04 20:10] VITALS: BP 151/72
[2021-11-04] MEDS: DOXAZOSIN MESYL 2 MG TAB PO SCH (20:14)
[2021-11-05] MEDS: InsuLIN REG 1unit/0.01ml Soln (100units/ml) SC SCH ×4 (00:02→18:22)
[2021-11-05 05:00] VITALS: BP_SYST 110; BP_SYST 166; BP_DIAS 72; BP_DIAS 83
[2021-11-05] MEDS: ACCU-CHEK COMFORT CURVE STRIP VI SCH ×3 (06:05→18:20)
[2021-11-05 06:14] LABS: BUN/Creatinine Ratio 19.9
[2021-11-05] MEDS: FUROSEMIDE 100 MG/10ML VIAL IV SCH (06:14)
[2021-11-05] MEDS: SODIUM BICARBONATE 650 MG TAB PO SCH ×3 (06:14→21:37)
[2021-11-05 06:37] LABS: Potassium 2.5 mmol/L (3.5-5.1)
[2021-11-05] MEDS: SODIUM CITR/CITRIC ACID ORAL SOLN 30 ML PO SCH ×3 (08:43→18:21)
[2021-11-05] MEDS: AMOXICILLIN TRIHYDRATE 250 MG CAP PO SCH ×2 (08:43→21:37)
[2021-11-05] MEDS: ASPirin 81 mg TAB PO SCH (08:43)
[2021-11-05] MEDS: ISOSORBIDE MONONITRATE ER 60 MG TAB PO SCH (08:44)
[2021-11-05] MEDS: CARVEDILOL 3.125 MG TAB PO SCH ×2 (08:44→21:39)
[2021-11-05] MEDS: ACETAMINOPHEN 325 MG TAB PO PRN ×2 (08:55→15:55)
[2021-11-05 09:00] VITALS: BP 155/79
[2021-11-05 13:00] VITALS: BP 120/64
[2021-11-05] MEDS ORDERED: POTASSIUM CHLORIDE 60 MEQ, LIDOCAINE 1% (LOCAL ANESTH.) 6 ML in SODIUM CHL 0.9% 500 ML IV ONE (15:15)
[2021-11-05 17:00] VITALS: BP 134/63
[2021-11-05] MEDS ORDERED: POTASSIUM CHL 20MEQ/100ML 100 ML IV SCH (17:00)
[2021-11-05] MEDS: SODIUM CHLORIDE 0.9% 1,000 ML IV SCH ×2 (18:20→19:45)
[2021-11-05] MEDS: TAMSULOSIN HYDROCHLORIDE 0.4 MG CAP PO SCH (18:20)
[2021-11-05] MEDS: POTASSIUM CHL 20MEQ/50ML 50 ML IV SCH ×2 (18:27→21:37)
[2021-11-05] MEDS: DOXAZOSIN MESYL 2 MG TAB PO SCH (21:38)
[2021-11-06] MEDS: InsuLIN REG 1unit/0.01ml Soln (100units/ml) SC SCH ×5 (00:31→23:11)
[2021-11-06] MEDS: ACCU-CHEK COMFORT CURVE STRIP VI SCH ×5 (00:31→22:42)
[2021-11-06] MEDS: POTASSIUM CHL 20MEQ/50ML 50 ML IV SCH (00:32)
[2021-11-06] MEDS: SODIUM CHLORIDE 0.9% 1,000 ML IV SCH ×2 (04:01→18:06)
[2021-11-06] MEDS: hydrALAZINE HCL 20 MG/ML VL IV PRN ×2 (04:21→18:09)
[2021-11-06] MEDS: ACETAMINOPHEN 325 MG TAB PO PRN ×3 (04:22→23:06)
[2021-11-06 05:42] LABS: BUN/Creatinine Ratio 20.3; Calcium 7.7 mg/dL (8.5-10.1)
[2021-11-06] MEDS: SODIUM BICARBONATE 650 MG TAB PO SCH ×3 (05:44→22:41)
[2021-11-06 05:46] LABS: Potassium 2.9 mmol/L (3.5-5.1)
[2021-11-06] MEDS: SODIUM CITR/CITRIC ACID ORAL SOLN 30 ML PO SCH ×3 (08:54→18:07)
[2021-11-06 09:00] VITALS: BP 170/78
[2021-11-06] MEDS: ASPirin 81 mg TAB PO SCH (09:24)
[2021-11-06] MEDS: AMOXICILLIN TRIHYDRATE 250 MG CAP PO SCH ×2 (09:24→22:41)
[2021-11-06] MEDS: CARVEDILOL 3.125 MG TAB PO SCH ×2 (09:26→22:42)
[2021-11-06] MEDS: ISOSORBIDE MONONITRATE ER 60 MG TAB PO SCH (09:26)
[2021-11-06 13:00] VITALS: BP 127/63
[2021-11-06] MEDS ORDERED: POTASSIUM CHL 20 Meq TABLET PO ONE (13:30)
[2021-11-06 17:00] VITALS: BP 151/72
[2021-11-06] MEDS: TAMSULOSIN HYDROCHLORIDE 0.4 MG CAP PO SCH (18:07)
[2021-11-06 22:00] VITALS: BP 150/73
[2021-11-06] MEDS: DOXAZOSIN MESYL 2 MG TAB PO SCH (22:42)
[2021-11-07] MEDS: SODIUM CHLORIDE 0.9% 1,000 ML IV SCH ×4 (01:45→22:57)
[2021-11-07 05:00] VITALS: BP 154/73
[2021-11-07] MEDS: ACCU-CHEK COMFORT CURVE STRIP VI SCH ×3 (05:44→18:18)
[2021-11-07] MEDS: InsuLIN REG 1unit/0.01ml Soln (100units/ml) SC SCH ×4 (06:00→18:11)
[2021-11-07] MEDS: hydrALAZINE HCL 20 MG/ML VL IV PRN (06:07)
[2021-11-07] MEDS: SODIUM BICARBONATE 650 MG TAB PO SCH (06:07)
[2021-11-07] MEDS: ACETAMINOPHEN 325 MG TAB PO PRN ×2 (06:11→22:35)
[2021-11-07 06:32] LABS: BUN/Creatinine Ratio 21.4; Calcium 7.9 mg/dL (8.5-10.1)
[2021-11-07 06:48] LABS: Potassium 2.9 mmol/L (3.5-5.1)
[2021-11-07 09:00] VITALS: BP 161/81
[2021-11-07] MEDS: AMOXICILLIN TRIHYDRATE 250 MG CAP PO SCH ×2 (09:37→22:57)
[2021-11-07] MEDS: ASPirin 81 mg TAB PO SCH (09:37)
[2021-11-07] MEDS: ISOSORBIDE MONONITRATE ER 60 MG TAB PO SCH (09:38)
[2021-11-07] MEDS: CARVEDILOL 3.125 MG TAB PO SCH ×2 (09:40→22:58)
[2021-11-07] MEDS: SODIUM CITR/CITRIC ACID ORAL SOLN 30 ML PO SCH ×3 (09:49→18:09)
[2021-11-07 13:00] VITALS: BP 141/73
[2021-11-07 17:00] VITALS: BP 131/63
[2021-11-07] MEDS: TAMSULOSIN HYDROCHLORIDE 0.4 MG CAP PO SCH (18:08)
[2021-11-07 22:00] VITALS: BP 110/55
[2021-11-07] MEDS: DOXAZOSIN MESYL 2 MG TAB PO SCH (22:58)
[2021-11-07] MEDS: POTASSIUM CHL 20 Meq TABLET PO SCH (22:59)
[2021-11-08] MEDS: InsuLIN REG 1unit/0.01ml Soln (100units/ml) SC SCH ×4 (00:13→18:18)
[2021-11-08] MEDS: ACCU-CHEK COMFORT CURVE STRIP VI SCH ×4 (00:14→18:14)
[2021-11-08 05:00] VITALS: BP 91/51
[2021-11-08] MEDS: SODIUM CHLORIDE 0.9% 1,000 ML IV SCH ×3 (07:45→23:26)
[2021-11-08 09:00] VITALS: BP 148/76
[2021-11-08] MEDS: ASPirin 81 mg TAB PO SCH (09:59)
[2021-11-08] MEDS: AMOXICILLIN TRIHYDRATE 250 MG CAP PO SCH ×2 (09:59→21:30)
[2021-11-08] MEDS: POTASSIUM CHL 20 Meq TABLET PO SCH ×2 (09:59→21:32)
[2021-11-08] MEDS: SODIUM CITR/CITRIC ACID ORAL SOLN 30 ML PO SCH ×3 (09:59→18:22)
[2021-11-08] MEDS: ISOSORBIDE MONONITRATE ER 60 MG TAB PO SCH (10:02)
[2021-11-08] MEDS: CARVEDILOL 3.125 MG TAB PO SCH ×2 (10:03→21:31)
[2021-11-08 13:00] VITALS: BP 140/78
[2021-11-08] MEDS: POTASSIUM CHL 20MEQ/50ML 50 ML IV SCH ×4 (15:30→18:31)
[2021-11-08 17:00] VITALS: BP 122/71
[2021-11-08] MEDS: TAMSULOSIN HYDROCHLORIDE 0.4 MG CAP PO SCH (18:13)
[2021-11-08] MEDS: POTASSIUM EFFERVESENT TAB 25 MEQ GT SCH (18:14)
[2021-11-08 20:45] VITALS: BP 138/77
[2021-11-08] MEDS: DOXAZOSIN MESYL 2 MG TAB PO SCH (21:31)
[2021-11-08] MEDS: ACETAMINOPHEN 325 MG TAB PO PRN (21:32)
[2021-11-08] MEDS: ONDANSETRON HCL 4 MG/2 ML VIAL IV PRN (22:12)
[2021-11-09] MEDS: ACCU-CHEK COMFORT CURVE STRIP VI SCH ×5 (00:04→22:58)
[2021-11-09] MEDS: InsuLIN REG 1unit/0.01ml Soln (100units/ml) SC SCH ×5 (00:09→22:59)
[2021-11-09 03:40] VITALS: BP 123/77
[2021-11-09 06:20] LABS: Basophils # (auto) 0 10 ^3/uL (0-0.2); Basophils % (auto) 0.5 % (0.0-2.0); Eosinophils # (auto) 0 10 ^3/uL (0-0.8); Eosinophils % (auto) 0.3 % (0.0-7.0); Hematocrit 26.3 % (41.0-53.0); Hemoglobin 8.8 g/dL (13.5-17.5); Lymphocytes # (auto) 0.6 10 ^3/uL (0.4-5.4); Lymphocytes % (auto) 6.3 % (10.0-50.0); Mean Corpuscular Hemoglobin 29.3 pg (28.0-32.0); Mean Corpuscular Hgb Conc. 33.3 g/dL (32.0-36.0); Mean Corpuscular Volume 87.8 fL (80.0-100.0); Monocytes # (auto) 0.7 10 ^3/uL (0-1.3); Monocytes % (auto) 7.7 % (0.0-12.0); Neutrophils # (auto) 8.2 10 ^3/uL (1.6-8.6); Neutrophils % (auto) 85.2 % (37.0-80.0); Red Cell Distribution Width 17.7 % (11.8-14.3); White Blood Cell 9.6 10^3/uL (4.4-10.8)
[2021-11-09 06:32] LABS: Calcium 7.9 mg/dL (8.5-10.1); Potassium 3.9 mmol/L (3.5-5.1)
[2021-11-09 06:35] LABS: BUN/Creatinine Ratio 20.5
[2021-11-09] MEDS: CARVEDILOL 3.125 MG TAB PO SCH ×2 (10:00→21:29)
[2021-11-09] MEDS: ISOSORBIDE MONONITRATE ER 60 MG TAB PO SCH (10:00)
[2021-11-09] MEDS: SODIUM CITR/CITRIC ACID ORAL SOLN 30 ML PO SCH ×3 (10:04→17:35)
[2021-11-09] MEDS: POTASSIUM EFFERVESENT TAB 25 MEQ GT SCH (10:06)
[2021-11-09] MEDS: POTASSIUM CHL 20 Meq TABLET PO SCH ×2 (10:06→21:29)
[2021-11-09] MEDS: ASPirin 81 mg TAB PO SCH (10:06)
[2021-11-09] MEDS: AMOXICILLIN TRIHYDRATE 250 MG CAP PO SCH ×2 (10:07→21:28)
[2021-11-09] MEDS: SODIUM CHLORIDE 0.9% 1,000 ML IV SCH ×2 (13:38→22:49)
[2021-11-09] MEDS: ONDANSETRON HCL 4 MG/2 ML VIAL IV PRN ×2 (14:16→22:49)
[2021-11-09] MEDS: TAMSULOSIN HYDROCHLORIDE 0.4 MG CAP PO SCH (17:35)
[2021-11-09] MEDS: DOXAZOSIN MESYL 2 MG TAB PO SCH (21:28)
[2021-11-09] MEDS: PANTOPRAZOLE 40 MG TAB PO SCH (21:28)
[2021-11-09 22:00] VITALS: BP 163/64
[2021-11-10] MEDS: SODIUM CHLORIDE 0.9% 1,000 ML IV SCH (01:09)
[2021-11-10] MEDS: ACCU-CHEK COMFORT CURVE STRIP VI SCH ×4 (05:06→23:49)
[2021-11-10] MEDS: InsuLIN REG 1unit/0.01ml Soln (100units/ml) SC SCH ×4 (05:06→23:50)
[2021-11-10 05:23] VITALS: BP 159/76
[2021-11-10 07:44] VITALS: BP 162/76
[2021-11-10] MEDS: SODIUM CITR/CITRIC ACID ORAL SOLN 30 ML PO SCH ×3 (09:00→18:00)
[2021-11-10] MEDS: CARVEDILOL 3.125 MG TAB PO SCH ×2 (09:59→21:39)
[2021-11-10] MEDS: AMOXICILLIN TRIHYDRATE 250 MG CAP PO SCH ×2 (10:00→21:38)
[2021-11-10] MEDS: PANTOPRAZOLE 40 MG TAB PO SCH ×2 (10:00→21:38)
[2021-11-10] MEDS: ISOSORBIDE MONONITRATE ER 60 MG TAB PO SCH (10:01)
[2021-11-10] MEDS: POTASSIUM CHL 20 Meq TABLET PO SCH ×3 (10:03→22:00)
[2021-11-10 11:19] LABS: INR 1.16 (0.9-1.15); Partial Thromboplastin Time 25.6 sec (23.6-33.0)
[2021-11-10 11:32] VITALS: BP 101/56
[2021-11-10] MEDS ORDERED: SODIUM FERR GLUC 62.5MG/5ML 125 MG in SODIUM CHL 0.9% 100 ML IV ONE (15:00)
[2021-11-10] MEDS ORDERED: EPOETIN ALFA-EPBX 10,000 UNIT/1ML VIAL SC ONE (15:00)
[2021-11-10 16:18] LABS: BUN/Creatinine Ratio 15.8; Calcium 8.2 mg/dL (8.5-10.1); Potassium 3.8 mmol/L (3.5-5.1)
[2021-11-10 16:50] VITALS: BP 142/80
[2021-11-10] MEDS: TAMSULOSIN HYDROCHLORIDE 0.4 MG CAP PO SCH (18:00)
[2021-11-10] MEDS: ONDANSETRON HCL 4 MG/2 ML VIAL IV PRN (19:05)
[2021-11-10 21:30] VITALS: BP 151/71
[2021-11-10] MEDS: DOXAZOSIN MESYL 2 MG TAB PO SCH (21:39)
[2021-11-11] MEDS: SODIUM CHLORIDE 0.9% 1,000 ML IV SCH ×2 (00:02→15:45)
[2021-11-11] MEDS: ONDANSETRON HCL 4 MG/2 ML VIAL IV PRN (02:44)
[2021-11-11 05:00] VITALS: BP 151/74
[2021-11-11] MEDS: ACCU-CHEK COMFORT CURVE STRIP VI SCH ×4 (05:21→23:51)
[2021-11-11] MEDS: InsuLIN REG 1unit/0.01ml Soln (100units/ml) SC SCH ×3 (05:21→18:00)
[2021-11-11 09:00] VITALS: BP 134/81
[2021-11-11] MEDS: SODIUM CITR/CITRIC ACID ORAL SOLN 30 ML PO SCH ×3 (09:00→18:00)
[2021-11-11] MEDS: AMOXICILLIN TRIHYDRATE 250 MG CAP PO SCH ×2 (10:00→22:17)
[2021-11-11] MEDS: POTASSIUM CHL 20 Meq TABLET PO SCH ×2 (10:00→22:17)
[2021-11-11] MEDS: ISOSORBIDE MONONITRATE ER 60 MG TAB PO SCH (10:09)
[2021-11-11] MEDS: PANTOPRAZOLE 40 MG TAB PO SCH ×2 (10:10→22:17)
[2021-11-11] MEDS: CARVEDILOL 3.125 MG TAB PO SCH ×2 (10:10→22:17)
[2021-11-11] MEDS ORDERED: MIDAZOLAM HCL 2MG/2ML 2ml VIAL (1mg/ml) ONE (10:28)
[2021-11-11] MEDS ORDERED: ONDANSETRON HCL 4 MG/2 ML VIAL ONE (10:28)
[2021-11-11] MEDS ORDERED: DexAMETHasone SOD PHOS 10MG/1ML VIAL INJ ONE (10:28)
[2021-11-11] MEDS ORDERED: GLYCOPYRROLATE 0.2 MG/ML 1ML VIAL ONE (10:28)
[2021-11-11] MEDS ORDERED: PROPOFOL 10 MG/ML 20 ML IV ONE (10:28)
[2021-11-11] MEDS ORDERED: MEPERIDINE HCL (50 MG/ML) 1 ML VIAL ONE (10:28)
[2021-11-11] MEDS ORDERED: fentaNYL CITRATE 100 MCG/2 ML VL ONE (10:28)
[2021-11-11] MEDS ORDERED: IOHEXOL 300 MG/ML 100ML BOTTLE IJ ONE (11:19)
[2021-11-11] MEDS ORDERED: CIPROFLOXACIN 400MG/200ML 200 ML IV ONE (11:36)
[2021-11-11] MEDS ORDERED: BUPIVACAINE 0.5% P/F INJ 10 ML VIAL ONE (11:45)
[2021-11-11] MEDS: SODIUM FERR GLUC 62.5MG/5ML 125 MG in SODIUM CHL 0.9% 100 ML IV SCH (12:00)
[2021-11-11] MEDS ORDERED: ONDANSETRON HCL 4 MG/2 ML VIAL IV PRN (13:15)
[2021-11-11] MEDS ORDERED: fentaNYL CITRATE 100 MCG/2 ML VL IV PRN (13:15)
[2021-11-11 17:00] VITALS: BP 142/73
[2021-11-11] MEDS: TAMSULOSIN HYDROCHLORIDE 0.4 MG CAP PO SCH (18:00)
[2021-11-11 22:00] VITALS: BP_SYST 134; BP_SYST 160; BP_DIAS 71; BP_DIAS 91
[2021-11-11] MEDS: DOXAZOSIN MESYL 2 MG TAB PO SCH (22:17)
[2021-11-12] MEDS: InsuLIN REG 1unit/0.01ml Soln (100units/ml) SC SCH ×5 (00:04→23:42)
[2021-11-12] MEDS: SODIUM CHLORIDE 0.9% 1,000 ML IV SCH ×2 (00:36→11:45)
[2021-11-12] MEDS: ACCU-CHEK COMFORT CURVE STRIP VI SCH ×4 (07:00→23:43)
[2021-11-12 07:05] LABS: Potassium 3.7 mmol/L (3.5-5.1)
[2021-11-12 07:11] LABS: BUN/Creatinine Ratio 15.8; Calcium 7.8 mg/dL (8.5-10.1)
[2021-11-12 08:30] VITALS: BP 134/71
[2021-11-12 09:00] VITALS: BP 145/76
[2021-11-12] MEDS: AMOXICILLIN TRIHYDRATE 250 MG CAP PO SCH ×2 (10:06→22:40)
[2021-11-12] MEDS: CARVEDILOL 3.125 MG TAB PO SCH ×2 (10:07→22:40)
[2021-11-12] MEDS: POTASSIUM CHL 20 Meq TABLET PO SCH ×2 (10:07→22:40)
[2021-11-12] MEDS: ACETAMINOPHEN 325 MG TAB PO PRN (10:08)
[2021-11-12] MEDS: ISOSORBIDE MONONITRATE ER 60 MG TAB PO SCH (10:08)
[2021-11-12] MEDS: PANTOPRAZOLE 40 MG TAB PO SCH ×2 (10:09→22:40)
[2021-11-12] MEDS: SODIUM CITR/CITRIC ACID ORAL SOLN 30 ML PO SCH ×3 (10:09→17:38)
[2021-11-12] MEDS: SODIUM FERR GLUC 62.5MG/5ML 125 MG in SODIUM CHL 0.9% 100 ML IV SCH ×3 (12:00→18:28)
[2021-11-12 13:00] VITALS: BP 188/96
[2021-11-12 14:53] LABS: Basophils # (auto) 0.1 10 ^3/uL (0-0.2); Basophils % (auto) 0.8 % (0.0-2.0); Eosinophils # (auto) 0 10 ^3/uL (0-0.8); Eosinophils % (auto) 0.4 % (0.0-7.0); Hematocrit 26.8 % (41.0-53.0); Hemoglobin 8.7 g/dL (13.5-17.5); Lymphocytes # (auto) 0.6 10 ^3/uL (0.4-5.4); Lymphocytes % (auto) 8.1 % (10.0-50.0); Mean Corpuscular Hemoglobin 28.9 pg (28.0-32.0); Mean Corpuscular Hgb Conc. 32.5 g/dL (32.0-36.0); Monocytes # (auto) 0.6 10 ^3/uL (0-1.3); Monocytes % (auto) 8.9 % (0.0-12.0); Neutrophils # (auto) 5.6 10 ^3/uL (1.6-8.6); Neutrophils % (auto) 81.8 % (37.0-80.0); Red Blood Cells 3.02 10^6/uL (4.5-5.90); Red Cell Distribution Width 17.3 % (11.8-14.3); White Blood Cell 6.9 10^3/uL (4.4-10.8)
[2021-11-12 17:00] VITALS: BP 150/73
[2021-11-12] MEDS ORDERED: BISACODYL 10 MG RECT SUPP PR PRN (17:30)
[2021-11-12] MEDS ORDERED: FLEET ENEMA(ADULT) 135 ML PR ONE (17:30)
[2021-11-12] MEDS ORDERED: DOCUSATE SOD 100 MG CAP PO PRN ×2 (17:30→17:45)
[2021-11-12] MEDS: TAMSULOSIN HYDROCHLORIDE 0.4 MG CAP PO SCH (17:55)
[2021-11-12] MEDS ORDERED: EPOETIN ALFA-EPBX 10,000 UNIT/1ML VIAL SC ONE (18:00)
[2021-11-12] MEDS: SOD CHL 0.45% 1,000 ML IV SCH (18:27)
[2021-11-12] MEDS ORDERED: EPOETIN ALFA-EPBX 10,000 UNIT/1ML VIAL ONE (21:00)
[2021-11-12 22:00] VITALS: BP 144/63
[2021-11-12] MEDS: DOXAZOSIN MESYL 2 MG TAB PO SCH (22:40)
[2021-11-13] MEDS: SOD CHL 0.45% 1,000 ML IV SCH ×2 (04:00→07:52)
[2021-11-13 05:00] VITALS: BP 153/78
[2021-11-13] MEDS: InsuLIN REG 1unit/0.01ml Soln (100units/ml) SC SCH ×3 (06:00→18:55)
[2021-11-13] MEDS: ACCU-CHEK COMFORT CURVE STRIP VI SCH ×3 (06:25→18:54)
[2021-11-13 08:00] VITALS: BP 164/93
[2021-11-13 09:00] VITALS: BP 159/97
[2021-11-13] MEDS: AMOXICILLIN TRIHYDRATE 250 MG CAP PO SCH ×2 (09:48→21:40)
[2021-11-13] MEDS: POTASSIUM CHL 20 Meq TABLET PO SCH ×2 (09:49→21:42)
[2021-11-13] MEDS: ISOSORBIDE MONONITRATE ER 60 MG TAB PO SCH (09:49)
[2021-11-13] MEDS: PANTOPRAZOLE 40 MG TAB PO SCH ×2 (09:49→21:43)
[2021-11-13] MEDS: CARVEDILOL 3.125 MG TAB PO SCH ×2 (09:50→21:42)
[2021-11-13] MEDS ORDERED: MAGNESIUM CITRATE SOLUTION 300 ML BTL PO ONE (12:30)
[2021-11-13 12:58] VITALS: BP 132/68
[2021-11-13 16:51] VITALS: BP 139/93
[2021-11-13] MEDS ORDERED: NEOSTIGMINE 1 MG/ML INJ (10mg/10ML VIAL) IM SCH (18:00)
[2021-11-13] MEDS: TAMSULOSIN HYDROCHLORIDE 0.4 MG CAP PO SCH (18:54)
[2021-11-13] MEDS: SODIUM CITR/CITRIC ACID ORAL SOLN 30 ML PO SCH ×3 (19:01→19:03)
[2021-11-13] MEDS: ONDANSETRON HCL 4 MG/2 ML VIAL IV PRN (20:01)
[2021-11-13] MEDS: DOXAZOSIN MESYL 2 MG TAB PO SCH (21:42)
[2021-11-13] MEDS: NEOSTIGMINE 1 MG/ML INJ (10mg/10ML VIAL) IM SCH (21:44)
[2021-11-13 22:00] VITALS: BP 117/69
[2021-11-14] MEDS: SOD CHL 0.45% 1,000 ML IV SCH ×4 (00:19→23:00)
[2021-11-14] MEDS: ACCU-CHEK COMFORT CURVE STRIP VI SCH ×4 (00:19→18:00)
[2021-11-14] MEDS: InsuLIN REG 1unit/0.01ml Soln (100units/ml) SC SCH ×4 (00:20→18:00)
[2021-11-14] MEDS: NEOSTIGMINE 1 MG/ML INJ (10mg/10ML VIAL) IM SCH ×5 (02:10→18:00)
[2021-11-14 05:00] VITALS: BP 106/60
[2021-11-14 08:00] VITALS: BP 115/60
[2021-11-14 09:00] VITALS: BP 147/78
[2021-11-14] MEDS: SODIUM CITR/CITRIC ACID ORAL SOLN 30 ML PO SCH ×3 (09:00→18:00)
[2021-11-14] MEDS: ONDANSETRON HCL 4 MG/2 ML VIAL IV PRN (11:08)
[2021-11-14] MEDS: CARVEDILOL 3.125 MG TAB PO SCH ×2 (11:39→22:00)
[2021-11-14] MEDS: ISOSORBIDE MONONITRATE ER 60 MG TAB PO SCH (11:39)
[2021-11-14] MEDS: PANTOPRAZOLE 40 MG TAB PO SCH ×2 (11:39→22:54)
[2021-11-14] MEDS: POTASSIUM CHL 20 Meq TABLET PO SCH ×2 (11:40→22:54)
[2021-11-14] MEDS: AMOXICILLIN TRIHYDRATE 250 MG CAP PO SCH ×2 (11:40→22:53)
[2021-11-14] MEDS: SODIUM FERR GLUC 62.5MG/5ML 125 MG in SODIUM CHL 0.9% 100 ML IV SCH (12:00)
[2021-11-14 13:00] VITALS: BP 135/72
[2021-11-14 17:00] VITALS: BP 130/76
[2021-11-14] MEDS: TAMSULOSIN HYDROCHLORIDE 0.4 MG CAP PO SCH (17:56)
[2021-11-14 22:00] VITALS: BP 130/50
[2021-11-14] MEDS: DOXAZOSIN MESYL 2 MG TAB PO SCH (22:00)
[2021-11-15] MEDS: ACCU-CHEK COMFORT CURVE STRIP VI SCH ×4 (00:43→18:00)
[2021-11-15] MEDS: ACETAMINOPHEN 325 MG TAB PO PRN ×2 (01:04→21:09)
[2021-11-15 05:00] VITALS: BP 165/70
[2021-11-15 05:24] LABS: Calcium 7.6 mg/dL (8.5-10.1); Potassium 3.8 mmol/L (3.5-5.1)
[2021-11-15] MEDS: InsuLIN REG 1unit/0.01ml Soln (100units/ml) SC SCH ×4 (06:00→18:00)
[2021-11-15 09:00] VITALS: BP 172/82
[2021-11-15] MEDS: SODIUM CITR/CITRIC ACID ORAL SOLN 30 ML PO SCH ×3 (09:41→18:00)
[2021-11-15] MEDS: CARVEDILOL 3.125 MG TAB PO SCH ×2 (09:42→21:41)
[2021-11-15] MEDS: AMOXICILLIN TRIHYDRATE 250 MG CAP PO SCH ×2 (09:42→21:40)
[2021-11-15] MEDS: ISOSORBIDE MONONITRATE ER 60 MG TAB PO SCH (09:42)
[2021-11-15] MEDS: POTASSIUM CHL 20 Meq TABLET PO SCH ×2 (09:43→21:41)
[2021-11-15] MEDS: PANTOPRAZOLE 40 MG TAB PO SCH ×2 (09:43→21:41)
[2021-11-15] MEDS ORDERED: GASTROGRAFIN 120 ML SOL ONE (11:49)
[2021-11-15 13:00] VITALS: BP 174/91
[2021-11-15] MEDS: SOD CHL 0.45% 1,000 ML IV SCH (13:30)
[2021-11-15] MEDS: SODIUM FERR GLUC 62.5MG/5ML 125 MG in SODIUM CHL 0.9% 100 ML IV SCH ×2 (14:10→14:13)
[2021-11-15 17:00] VITALS: BP 113/89
[2021-11-15] MEDS: TAMSULOSIN HYDROCHLORIDE 0.4 MG CAP PO SCH (18:00)
[2021-11-15 21:00] VITALS: BP 103/69
[2021-11-15] MEDS: ONDANSETRON HCL 4 MG/2 ML VIAL IV PRN (21:09)
[2021-11-15] MEDS: DOXAZOSIN MESYL 2 MG TAB PO SCH (21:40)
[2021-11-16] VITALS (7 sets, daily range): BP systolic 101–164; BP diastolic 71–93
[2021-11-16] MEDS: InsuLIN REG 1unit/0.01ml Soln (100units/ml) SC SCH ×4 (00:23→18:00)
[2021-11-16] MEDS: ACCU-CHEK COMFORT CURVE STRIP VI SCH ×4 (00:23→18:59)
[2021-11-16] MEDS: SOD CHL 0.45% 1,000 ML IV SCH ×3 (04:36→22:15)
[2021-11-16] MEDS: ONDANSETRON HCL 4 MG/2 ML VIAL IV PRN ×3 (04:52→21:30)
[2021-11-16 07:07] LABS: Calcium 8.5 mg/dL (8.5-10.1); Potassium 4.7 mmol/L (3.5-5.1)
[2021-11-16 07:09] LABS: BUN/Creatinine Ratio 18.9
[2021-11-16] MEDS: ISOSORBIDE MONONITRATE ER 60 MG TAB PO SCH (09:20)
[2021-11-16] MEDS: CARVEDILOL 3.125 MG TAB PO SCH ×2 (09:20→22:16)
[2021-11-16] MEDS: POTASSIUM CHL 20 Meq TABLET PO SCH ×2 (09:21→22:17)
[2021-11-16] MEDS: PANTOPRAZOLE 40 MG TAB PO SCH ×2 (09:21→22:17)
[2021-11-16] MEDS: SODIUM CITR/CITRIC ACID ORAL SOLN 30 ML PO SCH ×3 (09:35→18:00)
[2021-11-16] MEDS: AMOXICILLIN TRIHYDRATE 250 MG CAP PO SCH ×2 (09:35→22:15)
[2021-11-16] MEDS: SODIUM FERR GLUC 62.5MG/5ML 125 MG in SODIUM CHL 0.9% 100 ML IV SCH (14:55)
[2021-11-16] MEDS: TAMSULOSIN HYDROCHLORIDE 0.4 MG CAP PO SCH (18:00)
[2021-11-16] MEDS: DOXAZOSIN MESYL 2 MG TAB PO SCH (22:16)
[2021-11-16] MEDS: ACETAMINOPHEN 325 MG TAB PO PRN (22:56)
[2021-11-17] MEDS: ACCU-CHEK COMFORT CURVE STRIP VI SCH ×4 (06:00→23:54)
[2021-11-17] MEDS: InsuLIN REG 1unit/0.01ml Soln (100units/ml) SC SCH ×4 (06:00→23:55)
[2021-11-17] MEDS: ONDANSETRON HCL 4 MG/2 ML VIAL IV PRN (08:10)
[2021-11-17] MEDS: SOD CHL 0.45% 1,000 ML IV SCH (08:29)
[2021-11-17] MEDS: SODIUM CITR/CITRIC ACID ORAL SOLN 30 ML PO SCH ×3 (08:29→17:56)
[2021-11-17] MEDS: AMOXICILLIN TRIHYDRATE 250 MG CAP PO SCH ×2 (08:30→22:30)
[2021-11-17] MEDS: POTASSIUM CHL 20 Meq TABLET PO SCH (08:31)
[2021-11-17] MEDS: PANTOPRAZOLE 40 MG TAB PO SCH ×2 (08:31→22:30)
[2021-11-17 09:00] VITALS: BP 107/71
[2021-11-17] MEDS: CARVEDILOL 3.125 MG TAB PO SCH ×2 (10:00→22:30)
[2021-11-17] MEDS: ISOSORBIDE MONONITRATE ER 60 MG TAB PO SCH (10:00)
[2021-11-17] MEDS: HYDROmorphone HCL 2 MG/ML VL IV PRN (10:58)
[2021-11-17] MEDS: SODIUM FERR GLUC 62.5MG/5ML 125 MG in SODIUM CHL 0.9% 100 ML IV SCH (12:59)
[2021-11-17 13:00] VITALS: BP 144/70
[2021-11-17] MEDS ORDERED: SODIUM CHLORIDE 0.9% 1,000 ML IV SCH (15:15)
[2021-11-17] MEDS ORDERED: SODIUM CHLORIDE 0.9% 1,000 ML IV ONE ×3 (15:15→18:45)
[2021-11-17] MEDS ORDERED: TPN PER PHARMACY 0 ML IV SCH (16:15)
[2021-11-17 16:37] VITALS: BP 138/69
[2021-11-17] MEDS: TAMSULOSIN HYDROCHLORIDE 0.4 MG CAP PO SCH (17:56)
[2021-11-17 20:00] VITALS: BP 122/69
[2021-11-17] MEDS ORDERED: AMINO ACID INFUSION IN D10W 1,000 ML IV NR (20:00)
[2021-11-17 22:00] VITALS: BP 122/69
[2021-11-18] MEDS ORDERED: DEXTROSE (50%) 50ML SYRG IV SCH
[2021-11-18 05:00] VITALS: BP 140/68
[2021-11-18] MEDS: ACCU-CHEK COMFORT CURVE STRIP VI SCH ×3 (05:49→17:37)
[2021-11-18] MEDS: InsuLIN REG 1unit/0.01ml Soln (100units/ml) SC SCH ×3 (05:51→18:43)
[2021-11-18 08:11] LABS: Basophils # (auto) 0.1 10 ^3/uL (0-0.2); Basophils % (auto) 2.5 % (0.0-2.0); Eosinophils # (auto) 0 10 ^3/uL (0-0.8); Eosinophils % (auto) 0.7 % (0.0-7.0); Hematocrit 31.3 % (41.0-53.0); Lymphocytes # (auto) 0.2 10 ^3/uL (0.4-5.4); Lymphocytes % (auto) 3.9 % (10.0-50.0); Mean Corpuscular Hemoglobin 29.1 pg (28.0-32.0); Mean Corpuscular Hgb Conc. 32.1 g/dL (32.0-36.0); Mean Corpuscular Volume 90.7 fL (80.0-100.0); Monocytes # (auto) 0.7 10 ^3/uL (0-1.3); Monocytes % (auto) 13.2 % (0.0-12.0); Neutrophils # (auto) 3.9 10 ^3/uL (1.6-8.6); Neutrophils % (auto) 79.7 % (37.0-80.0); Nucleated Red Blood Cells % 0.1 %; Red Blood Cells 3.45 10^6/uL (4.5-5.90); Red Cell Distribution Width 18.1 % (11.8-14.3); White Blood Cell 4.9 10^3/uL (4.4-10.8)
[2021-11-18 08:18] LABS: Potassium 4.3 mmol/L (3.5-5.1)
[2021-11-18 08:32] LABS: Albumin 2.6 g/dL (3.4-5.0); BUN/Creatinine Ratio 23.6; Bilirubin, Total 0.4 mg/dL (0.2-1.0); Calcium 7.6 mg/dL (8.5-10.1); Magnesium 2.8 mg/dL (1.6-2.6); Pre Albumin 12.2 mg/dL (20.0-40.0); Total Protein 5.3 g/dL (6.4-8.2)
[2021-11-18 08:36] VITALS: BP 182/110
[2021-11-18] MEDS: AMOXICILLIN TRIHYDRATE 250 MG CAP PO SCH ×2 (08:46→22:30)
[2021-11-18] MEDS: PANTOPRAZOLE 40 MG TAB PO SCH ×2 (08:47→22:31)
[2021-11-18] MEDS: hydrALAZINE HCL 20 MG/ML VL IV PRN (08:47)
[2021-11-18] MEDS: CARVEDILOL 3.125 MG TAB PO SCH ×2 (08:47→22:31)
[2021-11-18] MEDS: SODIUM CITR/CITRIC ACID ORAL SOLN 30 ML PO SCH ×3 (09:00→17:49)
[2021-11-18] MEDS: ONDANSETRON HCL 4 MG/2 ML VIAL IV PRN ×2 (11:38→16:30)
[2021-11-18] MEDS: HYDROmorphone HCL 2 MG/ML VL IV PRN ×2 (11:54→16:32)
[2021-11-18] MEDS ORDERED: SODIUM CHLORIDE 0.9% 1,000 ML IV ONE (12:15)
[2021-11-18 12:52] VITALS: BP 111/62
[2021-11-18] MEDS: SODIUM FERR GLUC 62.5MG/5ML 125 MG in SODIUM CHL 0.9% 100 ML IV SCH (14:45)
[2021-11-18 16:39] VITALS: BP 110/60
[2021-11-18] MEDS: TAMSULOSIN HYDROCHLORIDE 0.4 MG CAP PO SCH (17:48)
[2021-11-18 20:00] VITALS: BP 109/68
[2021-11-18] MEDS ORDERED: PPN PER PHARMACY IV NR ×6 (20:00)
[2021-11-18 22:00] VITALS: BP 109/68
[2021-11-19] MEDS: ACCU-CHEK COMFORT CURVE STRIP VI SCH ×5 (00:11→23:57)
[2021-11-19] MEDS: InsuLIN REG 1unit/0.01ml Soln (100units/ml) SC SCH ×4 (00:14→18:00)
[2021-11-19 02:52] LABS: Creatinine, Urine 81 mg/dL (30.0-125.0); Sodium Urine 35 mmol/L (40-220)
[2021-11-19 05:00] VITALS: BP 106/64
[2021-11-19 06:43] LABS: Albumin 2.4 g/dL (3.4-5.0); BUN/Creatinine Ratio 25.1; Bilirubin, Total 0.3 mg/dL (0.2-1.0); Calcium 6.9 mg/dL (8.5-10.1); Magnesium 1.7 mg/dL (1.6-2.6); Phosphorus 2.2 mg/dL (2.5-4.90)
[2021-11-19] MEDS: ONDANSETRON HCL 4 MG/2 ML VIAL IV PRN ×2 (08:33→18:12)
[2021-11-19] MEDS: HYDROmorphone HCL 2 MG/ML VL IV PRN ×2 (08:43→18:03)
[2021-11-19 09:00] VITALS: BP 104/61
[2021-11-19] MEDS ORDERED: CALCIUM GLUC 1,000mg/50ml-NS 50 ML IV ONE (09:00)
[2021-11-19] MEDS: PANTOPRAZOLE 40 MG TAB PO SCH ×2 (10:00→22:00)
[2021-11-19] MEDS: SODIUM FERR GLUC 62.5MG/5ML 125 MG in SODIUM CHL 0.9% 100 ML IV SCH (12:00)
[2021-11-19] MEDS: SODIUM CHLORIDE 0.9% 1,000 ML IV SCH ×2 (12:45→23:19)
[2021-11-19 13:00] VITALS: BP 110/51
[2021-11-19] MEDS: CARVEDILOL 3.125 MG TAB PO SCH ×2 (15:45→22:00)
[2021-11-19] MEDS: SODIUM CITR/CITRIC ACID ORAL SOLN 30 ML PO SCH (16:27)
[2021-11-19] MEDS: TAMSULOSIN HYDROCHLORIDE 0.4 MG CAP PO SCH (16:27)
[2021-11-19 17:11] VITALS: BP 93/54
[2021-11-19] MEDS: PPN PER PHARMACY IV NR ×8 (20:00)
[2021-11-19 22:00] VITALS: BP 101/54
[2021-11-19] MEDS: AMOXICILLIN TRIHYDRATE 250 MG CAP PO SCH (22:00)
[2021-11-20] MEDS: InsuLIN REG 1unit/0.01ml Soln (100units/ml) SC SCH ×4 (00:01→17:53)
[2021-11-20 05:00] VITALS: BP 131/62
[2021-11-20] MEDS: SODIUM CHLORIDE 0.9% 1,000 ML IV SCH ×4 (05:07→20:45)
[2021-11-20] MEDS: HYDROmorphone HCL 2 MG/ML VL IV PRN ×2 (05:08→17:54)
[2021-11-20] MEDS: ACCU-CHEK COMFORT CURVE STRIP VI SCH ×3 (06:35→17:52)
[2021-11-20 07:22] LABS: Potassium 4.4 mmol/L (3.5-5.1)
[2021-11-20 07:31] LABS: Albumin 2.3 g/dL (3.4-5.0); BUN/Creatinine Ratio 26.2; Bilirubin, Total 0.4 mg/dL (0.2-1.0); Calcium 7.5 mg/dL (8.5-10.1); Magnesium 1.8 mg/dL (1.6-2.6); Phosphorus 3.3 mg/dL (2.5-4.90); Total Protein 5.1 g/dL (6.4-8.2)
[2021-11-20] MEDS: SODIUM CITR/CITRIC ACID ORAL SOLN 30 ML PO SCH ×3 (09:00→17:12)
[2021-11-20 09:36] VITALS: BP 125/62
[2021-11-20] MEDS: PANTOPRAZOLE 40 MG TAB PO SCH ×2 (10:00→21:33)
[2021-11-20] MEDS: CARVEDILOL 3.125 MG TAB PO SCH ×2 (10:00→21:32)
[2021-11-20] MEDS: AMOXICILLIN TRIHYDRATE 250 MG CAP PO SCH ×2 (10:00→21:32)
[2021-11-20] MEDS: SODIUM FERR GLUC 62.5MG/5ML 125 MG in SODIUM CHL 0.9% 100 ML IV SCH (12:31)
[2021-11-20 12:52] VITALS: BP 125/55
[2021-11-20 16:52] VITALS: BP 115/61
[2021-11-20] MEDS: TAMSULOSIN HYDROCHLORIDE 0.4 MG CAP PO SCH (17:12)
[2021-11-20] MEDS: PPN PER PHARMACY IV NR ×8 (19:18)
[2021-11-20 20:00] VITALS: BP 125/62
[2021-11-20] MEDS ORDERED: PPN PER PHARMACY IV NR ×7 (20:00)
[2021-11-21] MEDS: HYDROmorphone HCL 2 MG/ML VL IV PRN ×2 (03:25→14:30)
[2021-11-21] MEDS: SODIUM CHLORIDE 0.9% 1,000 ML IV SCH ×3 (04:45→21:36)
[2021-11-21] MEDS: ACCU-CHEK COMFORT CURVE STRIP VI SCH ×4 (06:00→18:11)
[2021-11-21] MEDS: InsuLIN REG 1unit/0.01ml Soln (100units/ml) SC SCH ×4 (06:00→18:11)
[2021-11-21 06:33] LABS: BUN/Creatinine Ratio 28.1; Bilirubin, Total 0.4 mg/dL (0.2-1.0); Calcium 7.3 mg/dL (8.5-10.1); Magnesium 2.4 mg/dL (1.6-2.6); Potassium 3.6 mmol/L (3.5-5.1); Total Protein 4.7 g/dL (6.4-8.2)
[2021-11-21 09:00] VITALS: BP 112/60
[2021-11-21] MEDS: SODIUM CITR/CITRIC ACID ORAL SOLN 30 ML PO SCH ×3 (09:00→17:57)
[2021-11-21] MEDS: CARVEDILOL 3.125 MG TAB PO SCH ×2 (10:00→21:47)
[2021-11-21] MEDS: AMOXICILLIN TRIHYDRATE 250 MG CAP PO SCH ×2 (10:00→21:48)
[2021-11-21] MEDS: PANTOPRAZOLE 40 MG TAB PO SCH ×2 (10:00→21:47)
[2021-11-21] MEDS: SODIUM FERR GLUC 62.5MG/5ML 125 MG in SODIUM CHL 0.9% 100 ML IV SCH (12:17)
[2021-11-21 13:07] VITALS: BP 139/67
[2021-11-21 17:00] VITALS: BP 116/65
[2021-11-21] MEDS: TAMSULOSIN HYDROCHLORIDE 0.4 MG CAP PO SCH (17:57)
[2021-11-21] MEDS ORDERED: PPN PER PHARMACY IV NR ×5 (20:00)
[2021-11-22] MEDS: ACCU-CHEK COMFORT CURVE STRIP VI SCH ×4 (01:05→17:09)
[2021-11-22] MEDS: InsuLIN REG 1unit/0.01ml Soln (100units/ml) SC SCH ×4 (01:17→17:11)
[2021-11-22] MEDS: HYDROmorphone HCL 2 MG/ML VL IV PRN ×3 (01:21→21:00)
[2021-11-22 05:00] VITALS: BP 110/80
[2021-11-22] MEDS: SODIUM CHLORIDE 0.9% 1,000 ML IV SCH ×2 (05:39→12:58)
[2021-11-22 08:00] VITALS: BP 101/62
[2021-11-22 08:05] LABS: Potassium 3.4 mmol/L (3.5-5.1)
[2021-11-22 08:12] LABS: Albumin 1.9 g/dL (3.4-5.0); Bilirubin, Total 0.4 mg/dL (0.2-1.0); Calcium 7.5 mg/dL (8.5-10.1); Magnesium 1.9 mg/dL (1.6-2.6); Phosphorus 4.4 mg/dL (2.5-4.90); Total Protein 4.8 g/dL (6.4-8.2)
[2021-11-22] MEDS: SODIUM CITR/CITRIC ACID ORAL SOLN 30 ML PO SCH ×3 (09:00→19:39)
[2021-11-22] MEDS: PANTOPRAZOLE 40 MG TAB PO SCH ×2 (10:00→20:26)
[2021-11-22] MEDS: AMOXICILLIN TRIHYDRATE 250 MG CAP PO SCH ×2 (10:00→20:26)
[2021-11-22] MEDS: CARVEDILOL 3.125 MG TAB PO SCH ×2 (10:00→20:27)
[2021-11-22] MEDS: POTASSIUM CHL 10MEQ/50ML 50 ML IV SCH ×2 (10:36→12:59)
[2021-11-22 13:00] VITALS: BP 100/63
[2021-11-22] MEDS: SODIUM FERR GLUC 62.5MG/5ML 125 MG in SODIUM CHL 0.9% 100 ML IV SCH (13:28)
[2021-11-22 17:00] VITALS: BP 96/76
[2021-11-22] MEDS: TAMSULOSIN HYDROCHLORIDE 0.4 MG CAP PO SCH (19:41)
[2021-11-22] MEDS ORDERED: SODIUM CHLORIDE 0.9% 1,000 ML IV SCH (20:00)
[2021-11-22] MEDS ORDERED: PPN PER PHARMACY IV NR ×7 (20:00)
[2021-11-22 22:00] VITALS: BP 170/69
[2021-11-22] MEDS ORDERED: BISACODYL 10 MG RECT SUPP PR SCH (22:00)
[2021-11-22] MEDS: hydrALAZINE HCL 20 MG/ML VL IV PRN (22:35)
[2021-11-23] MEDS: InsuLIN REG 1unit/0.01ml Soln (100units/ml) SC SCH
[2021-11-23] MEDS: ACCU-CHEK COMFORT CURVE STRIP VI SCH (00:27)
[2021-11-23] MEDS ORDERED: CALCIUM CHLOR(10%) 100MG/ML 10ML SYRINGE IV ONE (01:06)
[2021-11-23] MEDS ORDERED: EPINEPHrine HCL 1 MG/10 ML SYRG IV ONE (01:06)
[2021-11-23] MEDS ORDERED: SODIUM BICARBONATE 8.4% INJ 50ML SYRINGE IV ONE (01:06)
[2021-11-24] MEDS ORDERED: BISACODYL 10 MG RECT SUPP PR PRN (10:00)
== END 2021-11-23 01:07 | DRG 659 ==
LOC: EDBD 08:42 → ER 08:42 → CENTRAL 17:08 → TELE-CENTR 10-30 04:50
PROVIDERS: ADMIT Internal Medicine; ATTEND Internal Medicine Cardiovascular Disease
PROC: 0T9030Z Drainage of Right Kidney with Drainage Device, Percutaneous Approach (ICD-10-PCS; 2021-11-02)
PROC: 0T9130Z Drainage of Left Kidney with Drainage Device, Percutaneous Approach (ICD-10-PCS; 2021-11-02)
PROC: BT14YZZ Fluoroscopy of Kidneys, Ureters and Bladder using Other Contrast (ICD-10-PCS; 2021-11-02)
PROC: BT43ZZZ Ultrasonography of Bilateral Kidneys (ICD-10-PCS; 2021-11-02)
PROC: 0VT08ZZ Resection of Prostate, Via Natural or Artificial Opening Endoscopic (ICD-10-PCS; 2021-11-11)
PROC: 0TP98DZ Removal of Intraluminal Device from Ureter, Via Natural or Artificial Opening Endoscopic (ICD-10-PCS; 2021-11-11)
PROC: 0T788DZ Dilation of Bilateral Ureters with Intraluminal Device, Via Natural or Artificial Opening Endoscopic (ICD-10-PCS; principal; 2021-11-11 11:48)
PROC: 0D9670Z Drainage of Stomach with Drainage Device, Via Natural or Artificial Opening (ICD-10-PCS; 2021-11-15)
PROC: 5A12012 Performance of Cardiac Output, Single, Manual (ICD-10-PCS; 2021-11-23)
DX: N13.6 Pyonephrosis (principal); E43 Unspecified severe protein-calorie malnutrition; I13.0 Hypertensive heart and chronic kidney disease with heart failure and stage 1 through stage 4 chronic kidney disease, or unspecified chronic kidney disease; K56.690 Other partial intestinal obstruction; R64 Cachexia; N17.9 Acute kidney failure, unspecified; D63.1 Anemia in chronic kidney disease; I50.9 Heart failure, unspecified; N40.1 Benign prostatic hyperplasia with lower urinary tract symptoms; I25.10 Atherosclerotic heart disease of native coronary artery without angina pectoris; I25.5 Ischemic cardiomyopathy; N18.9 Chronic kidney disease, unspecified; E87.6 Hypokalemia; J44.9 Chronic obstructive pulmonary disease, unspecified; E11.40 Type 2 diabetes mellitus with diabetic neuropathy, unspecified; B95.2 Enterococcus as the cause of diseases classified elsewhere; E11.22 Type 2 diabetes mellitus with diabetic chronic kidney disease; E78.5 Hyperlipidemia, unspecified; I25.2 Old myocardial infarction; Z79.899 Other long term (current) drug therapy; Z80.8 Family history of malignant neoplasm of other organs or systems; Z82.49 Family history of ischemic heart disease and other diseases of the circulatory system; Z83.3 Family history of diabetes mellitus; Z85.819 Personal history of malignant neoplasm of unspecified site of lip, oral cavity, and pharynx
CPT/HCPCS: 36415; 50432; 71045; 74018; 74176; 74250; 74425; 76000; 76775; 76942; 80048; 80053; 81001; 82040; 82570; 82962; 83735; 83880; 83970; 84100; 84300; 84478; 84484; 85025; 85045; 85610; 85730; 87081; 87086; 87088; 87186; 87426; 92950; 93005; 96360; 97110; 97116; 97163; 97530; 99152; 99153; 99291; C1729; G0378; J0696; J1100; J1815; J2001; J2250; J2405; J2704; J3480; J3490; Q9967